=== PATIENT | male | born 1955 | race Two or more races ===

== ENCOUNTER 2020-09-17 08:35 | Inpatient (IN) | payer OTHER, SELFPAY ==
[~2020-09-17] VITALS: Ht 170.2 cm; Wt 47.6 kg
[~2020-09-17 08:35] MED LIST: ASPIRIN81 MG ORAL; BENAZEPRIL HCL40 MG ORAL; CEPHALEXIN500 M1 ORAL; FLOMAX0.4 MG ORAL; LABETALOL H5 MG/1 M1 PO; LIPITOR10 MG ORAL; NORCO 5-325 TA1 EACH ORAL; NORMODYNE200 MG ORAL; NORVASC5 MG ORAL; PHOSLO667 M1 PO
[2020-09-17] MEDS ORDERED: Acetaminophen 650mg/20.3ml GT STA (08:50)
[2020-09-17 09:00] VITALS: BP 126/45
[2020-09-17] MEDS ORDERED: Piperacillin/Tazobactam 3.375 GM in NS 110 ML IV ONE (09:00)
[2020-09-17] MEDS ORDERED: Vancomycin 1 GM in NS 275 ML IVPB ONE (09:00)
--- NOTE | 2020-09-17 09:00 | NUR ---
ED Nurse Note: Pt BIBA R68 from [facility] for ALOC. Pt is a&ox0, awake, eye open, unable to follow commands. Pt has G tube in upper abdomen, dialysis shunt in L arm. G tube patent and draining. Per Dr Centeno, straight cath used for urine specimen. IV established and blood sent to lab. Set up on monitor. Dr Centeno notified that rectal remp 103.1 F.
[2020-09-17] MEDS ORDERED: RENAGEL800 MG ORAL (09:01)
[2020-09-17] MEDS ORDERED: LACTULOSE20 GM/301 ORAL (09:01)
[2020-09-17] MEDS ORDERED: HUMALOG100 UNIT/4 SUBQ (09:01)
[2020-09-17] MEDS ORDERED: ATORVASTATIN CA80 MG ORAL (09:01)
[2020-09-17] MEDS ORDERED: NEXIUM40 M2 ORAL (09:01)
[2020-09-17] MEDS ORDERED: HYDRALAZINE HC100 MG ORAL (09:01)
[2020-09-17] MEDS ORDERED: XIFAXAN550 MG ORAL (09:01)
[2020-09-17] MEDS ORDERED: TRAMADOL HCL50 MG ORAL (09:01)
[2020-09-17] MEDS ORDERED: VENTOLIN HFA18 GM INH (09:01)
[2020-09-17] MEDS ORDERED: CARVEDILOL25 MG ORAL (09:01)
[2020-09-17] MEDS ORDERED: ACETAMINOPHEN325 M1 ORAL (09:01)
--- NOTE | 2020-09-17 09:11 | Emergency Room Report ---
History of Present Illness General Chief Complaint: Altered Level of Consciousness Source: Medical Record, EMS Present Illness HPI Patient brought in by ALS for altered level of consciousness. Patient is a dialysis patient. He is known to be Covid positive. Pulse oximetry in the [place] was 98%. Accu-Chek was 120. He said he felt hot but there done temperature was 99. The patient is usually more alert than he is now. He suffers from end-stage renal disease and is due for dialysis today. The patient is unable to give a history at this time as he is not answering questions and does respond to pain but minimally. The patient was admitted January 2014 with these discharge diagnoses: 1. Acute dyspnea due to pulmonary edema. 2. Acute fluid overload. 3. Accelerated hypertension, resolving. 4. End-stage renal disease, on hemodialysis on Sundays and Tuesdays followed by Dr. Castro. 5. Anemia with prior history of blood transfusion. 6. Diabetes mellitus type 2. 7. Elevated TSH with hypothyroidism. 8. Status post right chest wall PermCath placement approximately one month ago. 9. 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 COVID-19 Screening: Positive COVID-19 COVID-19 Testing Source: nasal Patient History Limited by: medical condition Past Medical History: see triage record, old chart reviewed Past Surgical History: other - Fistula left arm and G-tube Social History Narrative SNF Reviewed Nursing Documentation: PMH: Agreed; PSxH: Agreed Nursing Documentation-PMH Past Medical History: No History, Except For Hx Cardiac Problems: Yes Hx Hypertension: Yes Hx Diabetes: Yes Hx Cancer: No Hx Gastrointestinal Problems: No Hx Dialysis: Yes - Monday, Monday schedule Hx Neurological Problems: No Review of Systems All Other Systems: limited Physical Exam Vital Signs Date Time Temp Pulse Resp B/P (MAP) Pulse Ox O2 Delivery O2 Flow Rate FiO2 09/17/20 08:38 99.0 91 19 120/46 (70) 98 Room Air Patient feels hot and rectal temp is 103.1 Sp02 EP Interpretation: reviewed, normal General Appearance: lethargic, Chronically Ill Head: normocephalic Eyes: bilateral eye normal inspection ENT: dry mucus membranes Neck: supple Respiratory: lungs clear, normal breath sounds, no respiratory distress Cardiovascular #1: regular rate, rhythm, no edema, systolic murmur, other - Dialysis fistula left lower arm Cardiovascular #2: 2+ radial (R) Gastrointestinal: normal inspection, normal bowel sounds, non tender, no mass, non-distended, other - Gastrostomy tube Musculoskeletal: back normal, other - Contractures lower extremities Neurologic: other - Lethargic and minimally responsive to pain Psychiatric: other - Lethargy Skin: Decubitus/Ulcer - Bilateral heels resting on, warm/dry - Actually hot to touch, other - Sallow Medical Decision Making Diagnostic Impression: Primary Impression: Sepsis Qualified Codes: A41.9 - Sepsis, unspecified organism; R65.20 - Severe sepsis without septic shock; G93.40 - Encephalopathy, unspecified Additional Impressions: Altered level of consciousness ESRD (end stage renal disease) on dialysis History of 2019 novel coronavirus disease (COVID-19) NSTEMI (non-ST elevated myocardial infarction) Hypokalemia ER Course Patient presents with a level of consciousness and for fever with a history of COVID-19. Differential includes COVID-19, sepsis, pneumonia, urinary tract infection, other source of infection amongst others. Evaluation with sepsis work-up including chest x-ray and EKG. Patient placed on pvc monitor. Fluid bolus ordered. Antibiotics begun. Based on exam suspect urinary source as lungs are clear and oxygen saturation is normal. EKG NSSTTW changes, no STEMI. CXR clear. WBC elevated. K low (but ESRD). Troponin 2.1. Aspirin ordered. Second bolus ordered. Add Levaquin. BP stable, not tachycardic. Slightly more responsive. Sepsis re-evaluation [address] Willams in the emergency department. Patient Covid positive. Clinically improved but still quite ill. Admit to the hospital. Elected not to treat low potassium as history of end-stage renal disease on dialysis. Laboratory Tests Test 09/17/20 09:07 09/17/20 10:36 09/17/20 17:00 White Blood Count 19.0 K/UL (4.8-10.8) H Red Blood Count 3.35 M/UL (4.70-6.10) L Hemoglobin 10.0 G/DL (14.2-18.0) L Hematocrit 29.4 % (42.0-52.0) L Mean Corpuscular Volume 88 FL (80-99) Mean Corpuscular Hemoglobin 29.9 PG (27.0-31.0) Mean Corpuscular Hemoglobin Concent 34.0 G/DL (32.0-36.0) Red Cell Distribution Width 18.3 % (11.6-14.8) H Platelet Count 147 K/UL (150-450) L Mean Platelet Volume 10.3 FL (6.5-10.1) H Neutrophils (%) (Auto) % (45.0-75.0) Lymphocytes (%) (Auto) % (20.0-45.0) Monocytes (%) (Auto) % (1.0-10.0) Eosinophils (%) (Auto) % (0.0-3.0) Basophils (%) (Auto) % (0.0-2.0) Differential Total Cells Counted 100 Neutrophils % (Manual) 79 % (45-75) H Lymphocytes % (Manual) 12 % (20-45) L Monocytes % (Manual) 7 % (1-10) Eosinophils % (Manual) 0 % (0-3) Basophils % (Manual) 0 % (0-2) Band Neutrophils 2 % (0-8) Platelet Estimate Decreased L Platelet Morphology Normal Hypochromasia 1+ Anisocytosis 2+ Prothrombin Time 11.9 SEC (9.30-11.50) H Prothrombin Time INR 1.1 (0.9-1.1) Activated Partial Thromboplast Time 32 SEC (23-33) D-Dimer 7.12 mg/L FEU (0.00-0.49) H Urine Color Yellow Urine Appearance Clear Urine pH 8.0 (4.5-8.0) Urine Specific [place] 1.010 (1.005-1.035) Urine Protein 3+ (NEGATIVE) H Urine Glucose (UA) Negative (NEGATIVE) Urine Ketones Negative (NEGATIVE) Urine Blood 1+ (NEGATIVE) H Urine Nitrite Negative (NEGATIVE) Urine Bilirubin Negative (NEGATIVE) Urine Urobilinogen Normal MG/DL (0.0-1.0) Urine Leukocyte Esterase Negative (NEGATIVE) Urine RBC 5-10 /HPF (0 - 0) H Urine WBC 2-4 /HPF (0 - 0) Urine Squamous Epithelial Cells Occasional /LPF Urine Amorphous Sediment Few /LPF (NONE) H Urine Bacteria Few /HPF (NONE) Sodium Level 139 MMOL/L (136-145) Potassium Level 2.6 MMOL/L (3.5-5.1) *L Chloride Level 99 MMOL/L (98-107) Carbon Dioxide Level 27 MMOL/L (21-32) Anion Gap 14 mmol/L (5-15) Blood Urea Nitrogen 49 mg/dL (7-18) H Creatinine 7.1 MG/DL (0.55-1.30) H Estimated Glomerular Filtration Rate 7.8 mL/min (>60) Glucose Level 98 MG/DL (74-106) Lactic Acid Level 4.30 mmol/L (0.4-2.0) H 4.40 mmol/L (0.66-2.22) H Calcium Level 8.2 MG/DL (8.5-10.1) L Magnesium Level 2.0 MG/DL (1.8-2.4) Ferritin 1142 NG/ML (8-388) H Total Bilirubin 0.7 MG/DL (0.2-1.0) Aspartate Amino Transferase (AST) 33 U/L (15-37) Alanine Aminotransferase (ALT) 7 U/L (12-78) L Alkaline Phosphatase 178 U/L (46-116) H Lactate Dehydrogenase 227 U/L (81-234) Total Creatine Kinase 151 U/L (26-308) Troponin I 2.142 ng/mL (0.000-0.056) C-Reactive Protein, Quantitative 24.6 mg/dL (0.00-0.90) H Pro-B-Type Natriuretic Peptide Pending Total Protein 6.5 G/DL (6.4-8.2) Albumin 1.7 G/DL (3.4-5.0) L Globulin 4.8 g/dL Albumin/Globulin Ratio 0.4 (1.0-2.7) L Lipase 41 U/L (73-393) L Hemoglobin A1c 5.1 % (4.3-6.0) Microbiology Date/Time Source Procedure Growth Status 09/17/20 10:36 Nasopharynx SARS-CoV-2 RdRp Gene Assay - Final Complete EKG Diagnostic Results Rate: normal Rhythm: NSR ST Segments: no acute changes - Nonspecific ST-T wave changes with ST inversions laterally, right axis deviation Rhythm Strip Diag. Results EP Interpretation: yes Rhythm: NSR, no PVC's, no ectopy Chest X-Ray Diagnostic Results Chest X-Ray Diagnostic Results : Chest X-Ray Ordered: Yes # of Views/Limited/Complete: 1 View Indication: Other EP Interpretation: Yes Interpretation: no consolidation, no effusion, no pneumothorax Impression: No acute disease Electronically Signed by: Electronically signed by Gerhard Centeno MD Last Vital Signs Date Time Temp Pulse Resp B/P (MAP) Pulse Ox O2 Delivery O2 Flow Rate FiO2 09/17/20 16:00 61 09/17/20 16:00 96.3 20 100/43 (62) 96 09/17/20 13:25 Room Air 09/17/20 09:00 98 Status: improved Disposition: ADMITTED INPATIENT Condition: Serious Gerhard Centeno MD Sep 17, 2020 09:11
[2020-09-17 09:29] LABS: HEMATOCRIT 29.4 % (42.0-52.0); MEAN CORPUSCULAR VOLUME 88 FL (80-99); PLATELET COUNT 147 K/UL (150-450); RED BLOOD COUNT 3.35 M/UL (4.70-6.10); RED CELL DISTRIBUTION WIDTH 18.3 % (11.6-14.8)
--- NOTE | 2020-09-17 09:30 | NUR ---
ED Nurse Note: ERMD aware of low potassium level.
[2020-09-17 09:43] LABS: INR 1.1 (0.9-1.1)
--- NOTE | 2020-09-17 09:45 | Diagnostic Imaging Report ---
Indication: Cough Technique: One view of the chest Comparison: 02/22/2014 Findings: Previously demonstrated dialysis catheter is no longer evident. Lungs and pleural space are clear. The heart size is normal. There is a gastrostomy. Impression: No acute process
[2020-09-17 09:53] LABS: ALANINE AMINOTRANSFERASE 7 U/L (12-78); ALBUMIN 1.7 G/DL (3.4-5.0); ALBUMIN/GLOBULIN RATIO 0.4 (1.0-2.7); ALKALINE PHOSPHATASE 178 U/L (46-116); ANION GAP 14 mmol/L (5-15); ASPARTATE AMINO TRANSFERASE 33 U/L (15-37); BILIRUBIN,TOTAL 0.7 MG/DL (0.2-1.0); BLOOD UREA NITROGEN 49 mg/dL (7-18); CALCIUM 8.2 MG/DL (8.5-10.1); CARBON DIOXIDE 27 MMOL/L (21-32); CHLORIDE 99 MMOL/L (98-107); CREATINE KINASE 151 U/L (26-308); CREATININE 7.1 MG/DL (0.55-1.30); FERRITIN 1142 NG/ML (8-388); LACTATE DEHYDROGENASE 227 U/L (81-234); SODIUM 139 MMOL/L (136-145)
[2020-09-17 10:07] LABS: POTASSIUM 2.6 MMOL/L (3.5-5.1)
[2020-09-17 10:31] LABS: APPEARANCE,URINE CLEAR; COLOR,URINE YELLOW
[2020-09-17 10:32] LABS: BILIRUBIN, URINE NEGATIVE (NEGATIVE); GLUCOSE, URINE (UA) NEGATIVE (NEGATIVE); KETONES,URINE NEGATIVE (NEGATIVE); LEUKOCYTE ESTERASE ,URINE NEGATIVE (NEGATIVE); NITRITE,URINE NEGATIVE (NEGATIVE); PROTEIN,URINE 3+ (NEGATIVE); UROBILINOGEN,URINE NORMAL MG/DL (0.0-1.0)
--- NOTE | 2020-09-17 10:40 | NUR ---
ED Nurse Note: Lactic reflux sent.
--- NOTE | 2020-09-17 10:40 | NUR ---
ED Nurse Note: COVID swab sent.
[2020-09-17 11:20] VITALS: BP 123/46
[2020-09-17] MEDS ORDERED: HYDROcodone/Acetamin 5/325 tab ORAL PRN (12:30)
[2020-09-17] MEDS ORDERED: traMADol 50mg tab ORAL PRN (12:30)
--- NOTE | 2020-09-17 12:33 | NUR ---
ED Nurse Note: Report given to Lisa MERRILL.
--- NOTE | 2020-09-17 12:45 | NUR ---
ED Nurse Note: Pt transferred with all belongings. Pt has no acute distress. Received by RN.
[2020-09-17 13:00] VITALS: BP 100/45
[2020-09-17] MEDS ORDERED: traMADol 50mg tab GT PRN (13:00)
[2020-09-17] MEDS ORDERED: Acetaminophen 650mg/20.3ml GT PRN (13:00)
--- NOTE | 2020-09-17 13:00 | NUR ---
NURSE NOTES: Patient transferred from ER via gurney to room 220-2 without incident. Awake but lethargic. AAO x 1-2. Patient has diarrhea, cleaned and Changed to hospital gown, placed nut grinder, reading sinus rhythm. VS taken. Multiple wound noted, picture taken and will upload. G-tub noted, aspirated and flushed, Site is intact. IV on right FA, Patent and intact. AV shunt on left FA bruit and thrilled present. Bed in low position and locked, Call light within reach. Encouraged to use call light when needed. Will contact MD for admission order.
--- NOTE | 2020-09-17 13:04 | History and Physical ---
History of Present Illness General Date patient seen: Sep 17, 2020 Time patient seen: 12:00 Reason for Hospitalization: Altered Level of Consciousness Present Illness HPI Patient is a 65 y/o M who was sent to the ER in by ALS for altered level of consciousness from [facility] where he was being supported for recent Covid 19 + diagnosis. The patient is a dialysis patient - ESRD with HD T//Mon and had last session 09/15. Pulse oximetry in the field was 98%. Accu-Chek was 120. He said he felt hot but there done temperature was 99. The patient is usually more alert than he was initially in the ER. He is due for dialysis today. The patient is unable to give a history at this time as he is not answering questions and does respond to pain but minimally. In the ER he was given IVF bolus and lab work showed hypokalemia 2.8 and leukocytosis 19 K with evidence of UTI. Broad sp antibiotic, [id number] started in the ER Covid test was positive ( initial dx was in early September ). Admission is reque sted. Allergies: Coded Allergies: No Known Allergies (Unverified , 02/21/14) COVID-19 Screening Contact w/high risk pt: Yes Experienced COVID-19 symptoms?: Yes Coronavirus symptoms experienc: Fatigue Medication History Scheduled Albuterol Sulfate (Ventolin Hfa), 1 PUFF INH EVERY 6 HOURS, (Reported) Amlodipine Besylate (Norvasc), 5 MG ORAL DAILY Aspirin* (Aspirin*), 81 MG ORAL DAILY, (Reported) Atorvastatin Calcium* (Lipitor*), 10 MG ORAL DAILY, (Reported) Atorvastatin Calcium* (Lipitor*), 80 MG ORAL BEDTIME, (Reported) Benazepril Hcl* (Benazepril Hcl*), 40 MG ORAL DAILY, (Reported) Calcium Acetate (Phoslo), 667 MG PO TID, (Reported) Carvedilol* (Carvedilol*), 25 MG ORAL EVERY 12 HOURS, (Reported) Esomeprazole Magnesium (Nexium), 40 MG ORAL DAILY, (Reported) Hydralazine Hcl* (Hydralazine Hcl*), 100 MG ORAL EVERY 8 HOURS, (Reported) Labetalol HCl (Labetalol HCl), 400 MG ORAL Q8HR Rifaximin* (Xifaxan*), 550 MG ORAL TWICE A DAY, (Reported) Sevelamer Hcl (Renagel), 2,400 MG ORAL THREE TIMES A DAY, (Reported) Tamsulosin HCl (Flomax), 0.4 MG ORAL DAILY, (Reported) Scheduled PRN Acetaminophen* (Acetaminophen 325MG Tablet*), 650 MG ORAL Q4H PRN for For Pain, (Reported) Hydrocodone Bit/Acetaminophen 5-325* ([place] 5-325*), 1 TAB ORAL Q6H PRN for For Pain, (Reported) Tramadol Hcl* (Ultram*), 50 MG ORAL Q6H PRN for For Pain, (Reported) Miscellaneous Medications Insulin Lispro (Humalog), 0 SUBQ, (Reported) Lactulose (Lactulose*), 30 ML ORAL, (Reported) Patient History Healthcare decision maker Resuscitation status Advanced Directive on File Review of Systems All Other Systems: negative except mentioned in HPI Physical Exam General Appearance: moderate distress Lines, tubes and drains: peripheral HEENT: normocephalic, atraumatic Neck: non-tender Respiratory/Chest: lungs clear Cardiovascular/Chest: normal rate Abdomen: non tender, feeding tube Skin Exam: normal pigmentation, other - Left heel, foot dressing in place Last 24 Hour Vital Signs Date Time Temp Pulse Resp B/P (MAP) Pulse Ox O2 Delivery O2 Flow Rate FiO2 09/17/20 11:20 101.5 80 20 123/46 97 Room Air 09/17/20 09:32 101.5 09/17/20 09:00 86 22 Room Air 98 09/17/20 09:00 99.0 86 22 126/45 98 Room Air 09/17/20 08:38 99.0 91 19 120/46 (70) 98 Room Air Laboratory Tests Test 09/17/20 09:07 09/17/20 10:36 White Blood Count 19.0 K/UL (4.8-10.8) H Red Blood Count 3.35 M/UL (4.70-6.10) L Hemoglobin 10.0 G/DL (14.2-18.0) L Hematocrit 29.4 % (42.0-52.0) L Mean Corpuscular Volume 88 FL (80-99) Mean Corpuscular Hemoglobin 29.9 PG (27.0-31.0) Mean Corpuscular Hemoglobin Concent 34.0 G/DL (32.0-36.0) Red Cell Distribution Width 18.3 % (11.6-14.8) H Platelet Count 147 K/UL (150-450) L Mean Platelet Volume 10.3 FL (6.5-10.1) H Neutrophils (%) (Auto) % (45.0-75.0) Lymphocytes (%) (Auto) % (20.0-45.0) Monocytes (%) (Auto) % (1.0-10.0) Eosinophils (%) (Auto) % (0.0-3.0) Basophils (%) (Auto) % (0.0-2.0) Differential Total Cells Counted 100 Neutrophils % (Manual) 79 % (45-75) H Lymphocytes % (Manual) 12 % (20-45) L Monocytes % (Manual) 7 % (1-10) Eosinophils % (Manual) 0 % (0-3) Basophils % (Manual) 0 % (0-2) Band Neutrophils 2 % (0-8) Platelet Estimate Decreased L Platelet Morphology Normal Hypochromasia 1+ Anisocytosis 2+ Prothrombin Time 11.9 SEC (9.30-11.50) H Prothromb Time International Ratio 1.1 (0.9-1.1) Activated Partial Thromboplast Time 32 SEC (23-33) D-Dimer 7.12 mg/L FEU (0.00-0.49) H Urine Color Yellow Urine Appearance Clear Urine pH 8.0 (4.5-8.0) Urine Specific [place] 1.010 (1.005-1.035) Urine Protein 3+ (NEGATIVE) H Urine Glucose (UA) Negative (NEGATIVE) Urine Ketones Negative (NEGATIVE) Urine Blood 1+ (NEGATIVE) H Urine Nitrite Negative (NEGATIVE) Urine Bilirubin Negative (NEGATIVE) Urine Urobilinogen Normal MG/DL (0.0-1.0) Urine Leukocyte Esterase Negative (NEGATIVE) Urine RBC 5-10 /HPF (0 - 0) H Urine WBC 2-4 /HPF (0 - 0) Urine Squamous Epithelial Cells Occasional /LPF Urine Amorphous Sediment Few /LPF (NONE) H Urine Bacteria Few /HPF (NONE) Sodium Level 139 MMOL/L (136-145) Potassium Level 2.6 MMOL/L (3.5-5.1) *L Chloride Level 99 MMOL/L (98-107) Carbon Dioxide Level 27 MMOL/L (21-32) Anion Gap 14 mmol/L (5-15) Blood Urea Nitrogen 49 mg/dL (7-18) H Creatinine 7.1 MG/DL (0.55-1.30) H Estimat Glomerular Filtration Rate 7.8 mL/min (>60) Glucose Level 98 MG/DL (74-106) Lactic Acid Level 4.30 mmol/L (0.4-2.0) H 4.40 mmol/L (0.66-2.22) H Calcium Level 8.2 MG/DL (8.5-10.1) L Magnesium Level 2.0 MG/DL (1.8-2.4) Ferritin 1142 NG/ML (8-388) H Total Bilirubin 0.7 MG/DL (0.2-1.0) Aspartate Amino Transf (AST/SGOT) 33 U/L (15-37) Alanine Aminotransferase (ALT/SGPT) 7 U/L (12-78) L Alkaline Phosphatase 178 U/L (46-116) H Lactate Dehydrogenase 227 U/L (81-234) Total Creatine Kinase 151 U/L (26-308) Troponin I 2.142 ng/mL (0.000-0.056) C-Reactive Protein, Quantitative 24.6 mg/dL (0.00-0.90) H Pro-B-Type Natriuretic Peptide Pending Total Protein 6.5 G/DL (6.4-8.2) Albumin 1.7 G/DL (3.4-5.0) L Globulin 4.8 g/dL Albumin/Globulin Ratio 0.4 (1.0-2.7) L Lipase 41 U/L (73-393) L Microbiology Date/Time Source Procedure Growth Status 09/17/20 10:36 Nasopharynx SARS-CoV-2 RdRp Gene Assay - Final Complete Height (Feet): 5 Height (Inches): 7.00 Weight (Pounds): 170 Objective Narrative CXR negative for infiltrate or effusion EKG NSR Assessment/Plan Status: stable Assessment/Plan: 65 y/o M with ESRD, Cirrhosis, Covid 19 positive admitted to the hospital due to altered mental status. # Altered mental status # Sepsis # UTI Broad sp antibiotic started. Continue Levofloxacin, Vancomycin, Pip/Tazo at renal doses ID consult will be requested with Dr. Roblero Monitor hemodynamics and HL IVF for now. # ESRD on HD # Hypokalemia Renal consultation with Dr. Kline Defer schedule for HD and replacement of electrolytes # Covid 19 positive CXR without infiltrate today. Initial diagnosis in > 15 days ago. Isolation per protocol Defer to ID hadoop consultant further interventions. # History of cirrhosis Resume Rifaxim, lactulose # History of diabetic foot ulcer Wound care consult with Dr. Epps # T2DM REG Monitor BG # Diet At SNF on Puree diet #DVT with heparin bid sq # Gi ppx with PPI # FULL CODE Shiva Willams MD Sep 17, 2020 13:04
[2020-09-17] MEDS: HydrALAZINE 50mg tab GT SCH ×2 (14:00→21:55)
[2020-09-17] MEDS: Renvela 2400 mg pkt GT SCH ×2 (14:07→17:46)
[2020-09-17] MEDS: Piperacillin/Tazobactam 2.25 GM in D5W 55 ML IV SCH ×2 (14:16→22:15)
--- NOTE | 2020-09-17 14:18 | Consultation ---
Consult Note Consult Note I am asked to evaluate the patient at the request of Dr. Willams for dialysis management Chief Complaint: Altered Level of Consciousness Patient brought in by ALS for altered level of consciousness. Patient is a dialysis patient. He is known to be Covid positive. Pulse oximetry in the [facility] ld was 98%. Accu-Chek was 120. He said he felt hot but there done temperature was 99. The patient is usually more alert than he is now. He suffers from end- stage renal disease and is due for dialysis today. The patient is unable to give a history at this time as he is not answering questions and does respond to pain but minimally. 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 COVID-19 Screening: Positive COVID-19 COVID-19 Testing Source: nasal Limited by: medical condition Past Medical History: see triage record, old chart reviewed Past Surgical History: other - Fistula left arm and G-tube Social History Narrative SNF Reviewed Nursing Documentation: PMH: Agreed; PSxH: Agreed Past Medical History: No History, Except For Hx Cardiac Problems: Yes Hx Hypertension: Yes Hx Diabetes: Yes Hx Dialysis: Yes - Monday, Monday schedule Vital Signs Date Time Temp Pulse Resp B/P (MAP) Pulse Ox O2 Delivery O2 Flow Rate FiO2 09/17/20 08:38 99.0 91 19 120/46 (70) 98 Room Air Patient feels hot and rectal temp is 103.1 VITAL SIGNS: Temperature 97.9, T-max of 101.5, pulse of 72, respiratory rate rate 20, blood pressure 120/65. O2 saturation of 97% on room air. Examination deferred due to COVID-19. LABORATORY DATA: White count 18.6, hemoglobin 10.6, hematocrit 31.7, MCV 90, platelet count of 124,000, neutrophils of 87%. Sodium 136, potassium 3.1, chloride 99, bicarb 23, BUN 57, creatinine 7.1, glucose 155. Calcium 8.6. Total bilirubin 0.7, AST 43, ALT 9, alkaline phosphatase 149. Ammonia 23. C-reactive protein 28.8. Total protein 5.9, albumin 1.4. COVID-19 test is positive. Blood cultures growing gram-positive cocci in clusters. Urine cultures are negative. 2D echo which showed trace aortic regurgitation, mild mitral regurgitation, and trace tricuspid regurgitation on 09/17/2020. . Assessment/Plan End-stage renal disease on dialysis via left AV shunt Hypokalemia Cirrhosis Acute encephalopathy toxic metabolic COVID-19 infection/sepsis History of diabetes and diabetic foot ulcer GT feeding Full code Elevated troponin I Adjust blood pressure medications with proper parameters 2D echocardiogram Continue per ID Hemodialysis as needed Monitor electrolytes Gerardo Truong MD Sep 17, 2020 14:18
--- NOTE | 2020-09-17 14:41 | Consultation ---
History of Present Illness General Date patient seen: Sep 17, 2020 Reason for Hospitalization: Altered Level of Consciousness Present Illness HPI This is a 65 year old male presented to [facility] for altered level of consciousness noted to have fevers, leukocytosis, lactic acidosis, septic with recent COVID + noted prior cirrhosis. surgery called to evaluate and assist with care. patient seen, chart reviewed, patient examined. noted to have abnormal labs, ill appearing, with decubitus changes. patient unable to provide history or participate in exam. Allergies: Coded Allergies: No Known Allergies (Unverified , 02/21/14) COVID-19 Screening Contact w/high risk pt: Yes Experienced COVID-19 symptoms?: Yes Coronavirus symptoms experienc: Fatigue Medication History Scheduled Albuterol Sulfate (Ventolin Hfa), 1 PUFF INH EVERY 6 HOURS, (Reported) Amlodipine Besylate (Norvasc), 5 MG ORAL DAILY Aspirin* (Aspirin*), 81 MG ORAL DAILY, (Reported) Atorvastatin Calcium* (Lipitor*), 10 MG ORAL DAILY, (Reported) Atorvastatin Calcium* (Lipitor*), 80 MG ORAL BEDTIME, (Reported) Benazepril Hcl* (Benazepril Hcl*), 40 MG ORAL DAILY, (Reported) Calcium Acetate (Phoslo), 667 MG PO TID, (Reported) Carvedilol* (Carvedilol*), 25 MG ORAL EVERY 12 HOURS, (Reported) Esomeprazole Magnesium (Nexium), 40 MG ORAL DAILY, (Reported) Hydralazine Hcl* (Hydralazine Hcl*), 100 MG ORAL EVERY 8 HOURS, (Reported) Labetalol HCl (Labetalol HCl), 400 MG ORAL Q8HR Rifaximin* (Xifaxan*), 550 MG ORAL TWICE A DAY, (Reported) Sevelamer Hcl (Renagel), 2,400 MG ORAL THREE TIMES A DAY, (Reported) Tamsulosin HCl (Flomax), 0.4 MG ORAL DAILY, (Reported) Scheduled PRN Acetaminophen* (Acetaminophen 325MG Tablet*), 650 MG ORAL Q4H PRN for For Pain, (Reported) Hydrocodone Bit/Acetaminophen 5-325* ([place] 5-325*), 1 TAB ORAL Q6H PRN for For Pain, (Reported) Tramadol Hcl* (Ultram*), 50 MG ORAL Q6H PRN for For Pain, (Reported) Miscellaneous Medications Insulin Lispro (Humalog), 0 SUBQ, (Reported) Lactulose (Lactulose*), 30 ML ORAL, (Reported) Patient History Limited by: medical condition History Provided By: Medical Record, PMD Healthcare decision maker Resuscitation status Advanced Directive on File Past Medical/Surgical History Past Medical/Surgical History: (1) Pulmonary edema (2) Renal failure (3) Pulmonary edema (4) Pulmonary edema (5) HTN (hypertension) (6) Sepsis (7) Altered level of consciousness (8) NSTEMI (non-ST elevated myocardial infarction) (9) ESRD (end stage renal disease) on dialysis (10) History of 2019 novel coronavirus disease (COVID-19) Review of Systems Review of Symptoms General ROS: no weight loss or fever Psychological ROS: no depression or mood changes, no memory loss Ophthalmic ROS: no visual changes or eye irritation ENT ROS: no nasal congestion, hearing loss, dizziness Allergy and Immunology ROS: no allergic symptoms or urticaria Hematological and Lymphatic ROS: no swollen glands, unusual bleeding or bruising Endocrine ROS: no polyuria, polydipsia, weight changes, temperature intolerance Respiratory ROS: no cough, shortness of breath, or wheezing Cardiovascular ROS: no chest pain or dyspnea on exertion Gastrointestinal ROS: denies abdominal pain, bright red blood in stool. Musculoskeletal ROS: no myalgias or arthralgias Neurological ROS: no TIA or stroke symptoms Dermatological ROS: no new or changing skin lesions, rashes or pruritis limited given medical condition Physical Exam Physical Exam General appearance: no distress, appears stated age Head: Normocephalic, without obvious abnormality, atraumatic Eyes: conjunctivae/corneas clear. PERRL, EOM's intact. Fundi benign Throat: Lips, mucosa, and tongue normal. Teeth and gums normal Neck: supple, symmetrical, trachea midline, no adenopathy, thyroid: not enlarged, symmetric, no tenderness/mass/nodules, no carotid bruit and no JVD Lungs: clear to auscultation bilaterally Heart: regular rate and rhythm, S1, S2 normal, no murmur, click, rub or gallop Abdomen: soft, non-tender. Bowel sounds normal. No masses, no organomegaly Extremities: extremities normal, atraumatic, no cyanosis or edema Pulses: 2+ and symmetric Skin: Skin see below Neurologic: Grossly normal Last 24 Hour Vital Signs Date Time Temp Pulse Resp B/P (MAP) Pulse Ox O2 Delivery O2 Flow Rate FiO2 09/17/20 14:00 100/45 09/17/20 11:20 101.5 80 20 123/46 97 Room Air 09/17/20 09:32 101.5 09/17/20 09:00 86 22 Room Air 98 09/17/20 09:00 99.0 86 22 126/45 98 Room Air 09/17/20 08:38 99.0 91 19 120/46 (70) 98 Room Air Laboratory Tests Test 09/17/20 09:07 09/17/20 10:36 White Blood Count 19.0 K/UL (4.8-10.8) H Red Blood Count 3.35 M/UL (4.70-6.10) L Hemoglobin 10.0 G/DL (14.2-18.0) L Hematocrit 29.4 % (42.0-52.0) L Mean Corpuscular Volume 88 FL (80-99) Mean Corpuscular Hemoglobin 29.9 PG (27.0-31.0) Mean Corpuscular Hemoglobin Concent 34.0 G/DL (32.0-36.0) Red Cell Distribution Width 18.3 % (11.6-14.8) H Platelet Count 147 K/UL (150-450) L Mean Platelet Volume 10.3 FL (6.5-10.1) H Neutrophils (%) (Auto) % (45.0-75.0) Lymphocytes (%) (Auto) % (20.0-45.0) Monocytes (%) (Auto) % (1.0-10.0) Eosinophils (%) (Auto) % (0.0-3.0) Basophils (%) (Auto) % (0.0-2.0) Differential Total Cells Counted 100 Neutrophils % (Manual) 79 % (45-75) H Lymphocytes % (Manual) 12 % (20-45) L Monocytes % (Manual) 7 % (1-10) Eosinophils % (Manual) 0 % (0-3) Basophils % (Manual) 0 % (0-2) Band Neutrophils 2 % (0-8) Platelet Estimate Decreased L Platelet Morphology Normal Hypochromasia 1+ Anisocytosis 2+ Prothrombin Time 11.9 SEC (9.30-11.50) H Prothromb Time International Ratio 1.1 (0.9-1.1) Activated Partial Thromboplast Time 32 SEC (23-33) D-Dimer 7.12 mg/L FEU (0.00-0.49) H Urine Color Yellow Urine Appearance Clear Urine pH 8.0 (4.5-8.0) Urine Specific [place] 1.010 (1.005-1.035) Urine Protein 3+ (NEGATIVE) H Urine Glucose (UA) Negative (NEGATIVE) Urine Ketones Negative (NEGATIVE) Urine Blood 1+ (NEGATIVE) H Urine Nitrite Negative (NEGATIVE) Urine Bilirubin Negative (NEGATIVE) Urine Urobilinogen Normal MG/DL (0.0-1.0) Urine Leukocyte Esterase Negative (NEGATIVE) Urine RBC 5-10 /HPF (0 - 0) H Urine WBC 2-4 /HPF (0 - 0) Urine Squamous Epithelial Cells Occasional /LPF Urine Amorphous Sediment Few /LPF (NONE) H Urine Bacteria Few /HPF (NONE) Sodium Level 139 MMOL/L (136-145) Potassium Level 2.6 MMOL/L (3.5-5.1) *L Chloride Level 99 MMOL/L (98-107) Carbon Dioxide Level 27 MMOL/L (21-32) Anion Gap 14 mmol/L (5-15) Blood Urea Nitrogen 49 mg/dL (7-18) H Creatinine 7.1 MG/DL (0.55-1.30) H Estimat Glomerular Filtration Rate 7.8 mL/min (>60) Glucose Level 98 MG/DL (74-106) Hemoglobin A1c Pending Lactic Acid Level 4.30 mmol/L (0.4-2.0) H 4.40 mmol/L (0.66-2.22) H Calcium Level 8.2 MG/DL (8.5-10.1) L Magnesium Level 2.0 MG/DL (1.8-2.4) Ferritin 1142 NG/ML (8-388) H Total Bilirubin 0.7 MG/DL (0.2-1.0) Aspartate Amino Transf (AST/SGOT) 33 U/L (15-37) Alanine Aminotransferase (ALT/SGPT) 7 U/L (12-78) L Alkaline Phosphatase 178 U/L (46-116) H Lactate Dehydrogenase 227 U/L (81-234) Total Creatine Kinase 151 U/L (26-308) Troponin I 2.142 ng/mL (0.000-0.056) C-Reactive Protein, Quantitative 24.6 mg/dL (0.00-0.90) H Pro-B-Type Natriuretic Peptide Pending Total Protein 6.5 G/DL (6.4-8.2) Albumin 1.7 G/DL (3.4-5.0) L Globulin 4.8 g/dL Albumin/Globulin Ratio 0.4 (1.0-2.7) L Lipase 41 U/L (73-393) L Microbiology Date/Time Source Procedure Growth Status 09/17/20 10:36 Nasopharynx SARS-CoV-2 RdRp Gene Assay - Final Complete 09/17/20 09:07 Rectum Received Height (Feet): 5 Height (Inches): 7.00 Weight (Pounds): 170 Medications Current Medications Medications (Trade) Dose Ordered Sig/Jannette Route PRN Reason Start Time Stop Time Status Last Admin Dose Admin Acetaminophen (Tylenol) 650 mg Q4H PRN GT Mild Pain (Pain Scale 1-3) 09/17/20 13:00 10/17/20 12:59 Acetaminophen/ Hydrocodone Bitart ([place] 5/325) 1 tab Q6H PRN ORAL Moderate Pain (Pain Scale 4-6) 09/17/20 12:30 09/24/20 12:29 Amlodipine Besylate (Norvasc) 5 mg DAILY GT 09/18/20 09:00 10/18/20 08:59 Aspirin (ASA) 81 mg DAILY GT 09/18/20 09:00 11/02/20 08:59 Atorvastatin Calcium (Lipitor) 10 mg DAILY GT 09/18/20 09:00 12/17/20 08:59 UNV Atorvastatin Calcium (Lipitor) 80 mg BEDTIME GT 09/17/20 21:00 12/16/20 20:59 UNV Calcium Acetate (Phoslo) 667 mg TID GT 09/17/20 13:00 12/16/20 12:59 09/17/20 14:07 Carvedilol (Coreg) 25 mg EVERY 12 HOURS GT 09/17/20 21:00 10/17/20 20:59 Dextrose (Dextrose 50%) 25 ml Q30M PRN IV Hypoglycemia 09/17/20 12:30 12/16/20 12:29 Dextrose (Dextrose 50%) 50 ml Q30M PRN IV Hypoglycemia 09/17/20 12:30 12/16/20 12:29 Heparin Sodium (Porcine) (Heparin 5000 units/ml) 5,000 units EVERY 12 HOURS SUBQ 09/17/20 21:00 11/01/20 20:59 Hydralazine HCl (Apresoline) 50 mg EVERY 8 HOURS GT 09/17/20 14:00 12/16/20 13:59 Hydromorphone HCl (Dilaudid) 2 mg Q4H PRN IVP Severe Pain (Pain Scale 7-10) 09/17/20 12:30 09/24/20 12:29 Insulin Aspart (NovoLOG) BEFORE MEALS AND HS SUBQ 09/17/20 16:30 12/16/20 16:29 Lactulose (Cephulac) 20 gm BID GT 09/17/20 18:00 10/17/20 17:59 Levofloxacin 50 ml @ 50 mls/hr Q48H IVPB 09/19/20 09:00 09/26/20 08:59 Ondansetron HCl (Zofran) 4 mg Q6H PRN IVP Nausea & Vomiting 09/17/20 12:30 10/17/20 12:29 Piperacillin Sod/ Tazobactam Sod 2.25 gm/Dextrose 55 ml @ 110 mls/hr Q8HR IV 09/17/20 14:00 09/22/20 13:59 09/17/20 14:16 Rifaximin (Xifaxan) 550 mg TWICE A DAY GT 09/17/20 18:00 09/24/20 17:59 Sevelamer Carbonate (Renvela) 2,400 mg THREE TIMES A DAY GT 09/17/20 13:00 12/16/20 12:59 09/17/20 14:07 Tamsulosin HCl (Flomax) 0.4 mg DAILY ORAL 09/18/20 09:00 10/18/20 08:59 Tramadol HCl (Ultram) 50 mg Q6H PRN GT Breakthrough Pain 09/17/20 13:00 09/24/20 12:29 Vancomycin HCl (Vanco pharmacy to dose) 1 ea DAILY PRN MISC Per rx protocol 09/17/20 12:30 10/17/20 12:29 Vancomycin HCl 500 mg/Dextrose 110 ml @ 110 mls/hr ONCE ONCE IVPB 09/17/20 15:00 09/17/20 15:59 Assessment/Plan Problem List: (1) Sepsis Assessment & Plan: Patient mated with leukocytosis, lactic acidosis, abnormal labs. Septic. Fevers T-max 101.5 now resolved. On IV antibiotics. Urine noted. Micro reviewed. Wounds reviewed. No abscess identified. Local care provided. Continue IV antibiotics. Nutritional supplementation. Okay to use feeding tube. Will follow with recommendations. Thank you letting participate patient's care DAILY ESTIMATED NEEDS: Needs based on ESRD on HD, underweight 47.6kg 30-40 kcals/kg 7502-8398 total kcals 1.25-1.8 g protein/kg 60-86 g total protein Fluid per MD, on HD NUTRITION DIAGNOSIS: Increased kcal and pro needs r/t underweight status and renal dysfunction as evidenced by Low BMI (16.5), pt is 71% of ideal bosy weight, w/ ESRD on HD. CURRENT DIET:Renal puree PO DIET RECOMMENDATIONS: Renal/ puree ADDITIONAL RECOMMENDATIONS: 1) Add NEPRO TID w/ meals + 1:1 feeds as able Consider temporary feeds via GT w/ poor po ICD Codes: A41.9 - Sepsis, unspecified organism SNOMED: 71460445, 282349485 Qualifiers: Qualified Codes: A41.9 - Sepsis, unspecified organism; R65.20 - Severe sepsis without septic shock; G93.40 - Encephalopathy, unspecified (2) Altered level of consciousness ICD Codes: R40.4 - Transient alteration of awareness SNOMED: 5065190, 577615519 (3) NSTEMI (non-ST elevated myocardial infarction) ICD Codes: I21.4 - Non-ST elevation (NSTEMI) myocardial infarction SNOMED: 90945060 (4) ESRD (end stage renal disease) on dialysis ICD Codes: N18.6 - ESRD (end stage renal disease) on dialysis; Z99.2 - Dependence on renal dialysis SNOMED: 112116145 (5) History of 2019 novel coronavirus disease (COVID-19) ICD Codes: Z86.19 - Personal history of other infectious and parasitic diseases SNOMED: 043519225566138542, 658937847 (6) Pulmonary edema ICD Codes: J81.1 - Chronic pulmonary edema SNOMED: 82147252 (7) Pulmonary edema ICD Codes: J81.1 - Chronic pulmonary edema SNOMED: 46592983 (8) Pulmonary edema ICD Codes: J81.1 - Chronic pulmonary edema SNOMED: 17237826 (9) Renal failure ICD Codes: N19 - Unspecified kidney failure SNOMED: 98696861 (10) HTN (hypertension) ICD Codes: I10 - HTN (hypertension) SNOMED: 04859737 (11) Foot ulcer Assessment & Plan: Patient present on admission with a 2 cm centimeter left lateral aspect fifth metatarsal ray area open wound potentially decubitus ulcer identified with 100% slough serosanguineous drainage raised edges minimal cellulitis no purulent drainage. Wound evaluated bedside cleanse with normal saline apply Thera honey gauze and Optifoam change daily and as needed saturation patient was identified to have a sacral right buttock DTI with area of purple induration no fluctuance no abscess no breakdown epidermal. Apply Optifoam dressing change every 3 days and as needed saturation patient identified to have vascular disease distal ischemia beginning to be identified. Duplex ordered. Turn every 2 hours nutritional optimization air soft mattress as necessary. We will follow with recommendations and kindly participate patient's care ICD Codes: L97.509 - Non-pressure chronic ulcer of other part of unspecified foot with unspecified severity SNOMED: 41706439 (12) Decubitus ulcer ICD Codes: L89.90 - Pressure ulcer of unspecified site, unspecified stage SNOMED: 892288135 Alexis Epps Sep 17, 2020 14:41
[2020-09-17] MEDS ORDERED: Vancomycin 500mg/D5W 110ml IVPB ONE ×2 (15:00)
[2020-09-17 16:00] VITALS: BP 100/43
[2020-09-17] MEDS: NovoLOG Insulin Flexpen SUBQ SCH ×2 (16:30→22:06)
[2020-09-17] MEDS ORDERED: HYDROcodone/Acetamin 5/325 tab GT PRN (17:00)
--- NOTE | 2020-09-17 17:30 | NUR ---
NURSE NOTES: Spoke with dialysis nurse Curtis, She said she will be here all night, but she won't be able to dialyze patient today. called [facility] and spoke with Calvin
[2020-09-17] MEDS: Lactulose 20gm/30ml UDC GT SCH (17:47)
--- NOTE | 2020-09-17 19:15 | NUR ---
NURSE HAND-OFF REPORT: Important Events on Shift:New admission Patient Status: Stable Diet: Renal puree moist Pending Orders: HD Pending Results/Labs:Morning labs Pending MD notification:N/A Latest Vital Signs: Temperature 96.3 , Pulse 61 , B/P 100 /43 , Respiratory Rate 20 , O2 SAT 96 , Mechanical Ventilator, O2 Flow Rate . Vital Sign Comment: Stable EKG Rhythm: Sinus Rhythm Rhythm change?: N MD Notified?: - MD Response: Latest Branch Fall Score: 50 Fall Risk: High Risk Safety Measures: Call light Within Reach, Bed Alarm Zone 1, Side Rails Side Rails x3, Bed position Low and Locked. Fall Precautions: Yellow Socks Yellow Gown Door Sign Patient Fall Education Report given to Dilip/DESIRAE.
[2020-09-17 20:00] VITALS: BP 105/63
[2020-09-17] MEDS ORDERED: Varibar Pudding 230ml MC PRN (20:00)
[2020-09-17] MEDS ORDERED: Varibar Honey 250ml MC PRN (20:00)
[2020-09-17] MEDS ORDERED: Varibar Nectar 240ml MC PRN (20:00)
[2020-09-17] MEDS ORDERED: Varibar Thin Liquid powder 148gm MC PRN (20:00)
--- NOTE | 2020-09-17 20:10 | NUR ---
NURSE NOTES: Patient received from Adriana RN. Patient alert and oriented x 0-1. Patient saturating well on room air. Per morning nurse, aware of labs. No s/s of pain and distress. Left FA AV SHUNT present for bruit and thrills. IV site on Right FA 20G patent and intact SL. Noted skin issues. Bed in lowest position and locked. Call light and bedside table within reach. Will continue plan of care.
[2020-09-17] MEDS: Carvedilol 25mg Tab GT SCH (21:00)
[2020-09-17] MEDS: Atorvastatin 80mg tab GT SCH (22:04)
--- NOTE | 2020-09-17 22:08 | NUR ---
NURSE NOTES: Called Dr. Willams for parameter to hold heparin. Called back and ordered to hold heparin for platelet <70,000. Verified and carried out.
[2020-09-17] MEDS: Heparin 5000 units/ml inj SUBQ SCH (22:15)
[2020-09-18] VITALS: BP 127/62
[2020-09-18 04:00] VITALS: BP 100/59
[2020-09-18] MEDS: HydrALAZINE 50mg tab GT SCH ×3 (06:00→21:44)
[2020-09-18 07:02] LABS: HEMATOCRIT 31.7 % (42.0-52.0); HEMOGLOBIN 10.6 G/DL (14.2-18.0); MEAN CORPUSCULAR VOLUME 90 FL (80-99); PLATELET COUNT 124 K/UL (150-450); RED BLOOD COUNT 3.54 M/UL (4.70-6.10); RED CELL DISTRIBUTION WIDTH 17.5 % (11.6-14.8); WHITE BLOOD COUNT 18.6 K/UL (4.8-10.8)
[2020-09-18] MEDS: Piperacillin/Tazobactam 2.25 GM in D5W 55 ML IV SCH (07:02)
[2020-09-18] MEDS: NovoLOG Insulin Flexpen SUBQ SCH ×4 (07:04→21:00)
[2020-09-18 07:35] LABS: ALBUMIN 1.4 G/DL (3.4-5.0); ALBUMIN/GLOBULIN RATIO 0.3 (1.0-2.7); BILIRUBIN,TOTAL 0.7 MG/DL (0.2-1.0); CALCIUM 8.6 MG/DL (8.5-10.1); CREATININE 7.1 MG/DL (0.55-1.30); POTASSIUM 3.1 MMOL/L (3.5-5.1)
--- NOTE | 2020-09-18 07:57 | NUR ---
NURSE NOTES: Pt received from Darcy MERRILL. Pt in bed resting. Bed low and Locked. call light within reach. No distress noted.
[2020-09-18 08:00] VITALS: BP 120/65
--- NOTE | 2020-09-18 08:07 | NUR ---
NURSE HAND-OFF REPORT: Important Events on Shift:[Supposed to be dialyzed last night but dialysis nurse wasnt able to, abnormal labs MD aware as endorsed by morning shift nurse.] Patient Status: [FC, awake] Diet: [Renal Puree moist thin liquid] Pending Orders: [] Pending Results/Labs:[] Pending MD notification:[] Latest Vital Signs: Temperature 98.0 , Pulse 70 , B/P 100 /52 , Respiratory Rate 21 , O2 SAT 98 , Mechanical Ventilator, O2 Flow Rate . Vital Sign Comment: [] EKG Rhythm: Sinus Rhythm Rhythm change?: N MD Notified?: - MD Response: Latest Branch Fall Score: 50 Fall Risk: High Risk Safety Measures: Call light Within Reach, Bed Alarm Zone 1, Side Rails Side Rails x3, Bed position Low and Locked. Fall Precautions: Yellow Socks Yellow Gown Door Sign Patient Fall Education Report given to [Negrita RN].
--- NOTE | 2020-09-18 09:45 | NUR ---
CASE MANAGEMENT:REVIEW BIBA FROM [facility]; ALOC PMH: ESRD ON HD SI: SEPSIS. COVID POSITIVE. NSTEMI. HYPOKALEMIA 103.1 91 19 120/46 98% ON RA K-2.6 WBC+19.0 BUN+49 CR+7.1 TROPONIN(+)2.142 IS: IV VANCOMYCIN IV ZOSYN TYLENOL GT 500CC NS BOLUS X2 ASA PO IV LEVAQUIN URINE & BLOOD CX CHEST XRAY : TO TELEMETRY UNIT DCP: FROM [facility]
--- NOTE | 2020-09-18 11:45 | Consultation ---
DATE OF CONSULTATION: 09/18/2020 INFECTIOUS DISEASE CONSULTATION CONSULTING PHYSICIAN: Mikhail Roblero MD. REFERRING PHYSICIAN: Shiva Willams MD. REASON FOR CONSULTATION: COVID-19 pneumonia and possible urinary tract infection. HISTORY OF PRESENTING ILLNESS: This is a 65-year-old gentleman with history of renal failure, on dialysis, who was recently found to be COVID positive, who comes in with altered mental status. An Infectious Diseases consultation has been obtained for antibiotics. PAST MEDICAL HISTORY: History of renal failure, on dialysis. SOCIAL HISTORY: Unknown. FAMILY HISTORY: Unknown. REVIEW OF SYSTEMS: Unable to obtain currently. MEDICATIONS: As an inpatient, he is on Levaquin, Flomax, aspirin, amlodipine, subcutaneous heparin, Coreg, atorvastatin, rifaximin, lactulose, [place], Zosyn, hydralazine, tramadol, Tylenol, Renvela, calcium acetate, Zofran, IV vancomycin, and Dilaudid. ALLERGIES: No known drug allergies. PHYSICAL EXAMINATION: VITAL SIGNS: Temperature 97.9, T-max of 101.5, pulse of 72, respiratory rate rate 20, blood pressure 120/65. O2 saturation of 97% on room air. Examination deferred due to COVID-19. LABORATORY DATA: White count 18.6, hemoglobin 10.6, hematocrit 31.7, MCV 90, platelet count of 124,000, neutrophils of 87%. Sodium 136, potassium 3.1, chloride 99, bicarb 23, BUN 57, creatinine 7.1, glucose 155. Calcium 8.6. Total bilirubin 0.7, AST 43, ALT 9, alkaline phosphatase 149. Ammonia 23. C-reactive protein 28.8. Total protein 5.9, albumin 1.4. COVID-19 test is positive. Blood cultures growing gram-positive cocci in clusters. Urine cultures are negative. 2D echo which showed trace aortic regurgitation, mild mitral regurgitation, and trace tricuspid regurgitation on 09/17/2020. ASSESSMENT: This is a 65-year-old gentleman with history of renal failure, on dialysis, who comes in with fevers and is found to have, 1. Gram-positive sepsis, would be concerned regarding endocarditis as a possibility. 2. COVID-19 positive. He is on room air with O2 saturation of 97%. Chest x-ray is normal. 3. Renal failure, on dialysis. PLAN: 1. Continue IV vancomycin. 2. Discontinue Zosyn and Levaquin. 3. We will follow up cultures and adjust antibiotics accordingly. 4. Continue isolation. I would like to thank Dr. Shiva Willams for this consultation. Eduarkuntala Hoang Roblero DR: ANNEL JOB#: [id number] CC:
[2020-09-18 12:00] VITALS: BP 115/60
--- NOTE | 2020-09-18 12:08 | NUR ---
RD ASSESSMENT & RECOMMENDATIONS SEE CARE ACTIVITY FOR COMPLETE ASSESSMENT DAILY ESTIMATED NEEDS: Needs based on ESRD on HD, underweight 47.6kg 30-40 kcals/kg 7281-3191 total kcals 1.25-1.8 g protein/kg 60-86 g total protein Fluid per MD, on HD NUTRITION DIAGNOSIS: Increased kcal and pro needs r/t underweight status and renal dysfunction as evidenced by Low BMI (16.5), pt is 71% of ideal bosy weight, w/ ESRD on HD. CURRENT DIET:Renal puree PO DIET RECOMMENDATIONS: Renal/ puree ADDITIONAL RECOMMENDATIONS: 1) Add NEPRO TID w/ meals + 1:1 feeds as able Consider temporary feeds via GT w/ poor po 2) Daily calibrated bed scale wts 3) f/up w/ WC eval
--- NOTE | 2020-09-18 12:16 | General Progress Note ---
Subjective Date patient seen: Sep 18, 2020 Time patient seen: 11:00 ROS Limited/Unobtainable: Yes Allergies: Coded Allergies: No Known Allergies (Unverified , 02/21/14) Subjective Denies pain Objective Last 24 Hour Vital Signs Date Time Temp Pulse Resp B/P (MAP) Pulse Ox O2 Delivery O2 Flow Rate FiO2 09/18/20 08:00 97.9 72 20 120/65 (83) 97 09/18/20 06:00 100/52 09/18/20 04:00 70 09/18/20 04:00 98.0 70 21 100/59 (73) 98 09/18/20 00:00 65 09/18/20 00:00 97.8 64 19 127/62 (83) 99 09/17/20 21:55 105/63 09/17/20 21:00 70 105/63 09/17/20 21:00 Room Air 09/17/20 20:00 97.6 62 20 105/63 (77) 100 09/17/20 20:00 62 09/17/20 16:00 61 09/17/20 16:00 96.3 61 20 100/43 (62) 96 09/17/20 14:00 100/45 09/17/20 13:28 65 09/17/20 13:25 Room Air 09/17/20 13:00 97.2 69 18 100/45 (63) 100 09/17/20 12:45 98.0 76 19 120/87 100 Mechanical Ventilator Intake and Output 09/17/20 09/18/20 19:00 07:00 Output Total 20 ml Balance -20 ml Output Urine Total 20 ml # Voids 1 # Bowel Movements 2 1 Laboratory Tests 09/17/20 17:00: Hemoglobin A1c 5.1 09/18/20 05:51: POC Whole Blood Glucose 164H 09/18/20 06:26: White Blood Count 18.6H, Red Blood Count 3.54L, Hemoglobin 10.6L, Hematocrit 31.7L, Mean Corpuscular Volume 90, Mean Corpuscular Hemoglobin 29.9, Mean Corpuscular Hemoglobin Concent 33.4, Red Cell Distribution Width 17.5H, Platelet Count 124L, Mean Platelet Volume 9.6, Neutrophils (%) (Auto) , Lymphocytes (%) ( Auto) , Monocytes (%) (Auto) , Eosinophils (%) (Auto) , Basophils (%) (Auto) , Differential Total Cells Counted 100, Neutrophils % (Manual) 87H, Lymphocytes % (Manual) 9L, Monocytes % (Manual) 4, Eosinophils % (Manual) 0, Basophils % (Manual) 0, Band Neutrophils 0, Platelet Estimate DecreasedL, Platelet Morphology Normal, Polychromasia 1+, Hypochromasia 1+, Anisocytosis 1+, Sodium Level 136, Potassium Level 3.1L, Chloride Level 99, Carbon Dioxide Level 23, Anion Gap 14, Blood Urea Nitrogen 57H, Creatinine 7.1H, Estimat Glomerular Filtration Rate 7.8, Glucose Level 155H, Lactic Acid Level 4.30H, Uric Acid 5.9, Calcium Level 8.6, Phosphorus Level 5.0H, Magnesium Level 2.3, Total Bilirubin 0.7, Aspartate Amino Transf (AST/SGOT) 43H, Alanine Aminotransferase (ALT/SGPT) 9L, Alkaline Phosphatase 149H, Ammonia 23, C-Reactive Protein, Quantitative 28.8H, Pro-B-Type Natriuretic Peptide [Pending], Total Protein 5.9L, Albumin 1.4L, Globulin 4.5, Albumin/Globulin Ratio 0.3L, Thyroid Stimulating Hormone (TSH) 3.114, Random Vancomycin Level 20.3 Height (Feet): 5 Height (Inches): 7.00 Weight (Pounds): 105 General Appearance: moderate distress EENT: PERRL/EOMI Neck: non-tender Cardiovascular: normal rate Respiratory/Chest: lungs clear Abdomen: non tender Edema: trace edema Neurologic: head scorer II-XII grossly normal Assessment/Plan Status: stable Assessment/Plan: 65 y/o M with ESRD, Cirrhosis, Covid 19 positive admitted to the hospital due to altered mental status. # Altered mental status # Sepsis due to G + cocci bacteremia # UTI Broad sp antibiotic started and adjusted by ID bank consultant Dr. Roblero. Continue Vancomycin IV and follow up Bcx. Consider need for KODY as indicated. TTE reviewed, no evidence of IE Monitor hemodynamics and HL IVF for now. # ESRD on HD # Hypokalemia Renal consultation with Dr. Kline Defer schedule for HD and replacement of electrolytes # Covid 19 positive CXR without infiltrate today. Initial diagnosis in > 15 days ago. Isolation per protocol Defer to ID bank consultant further interventions. # History of cirrhosis Resume Rifaxim, lactulose # History of diabetic foot ulcer Wound care consult with Dr. Epps # T2DM REG Monitor BG # Diet At SNF on Puree diet #DVT with heparin bid sq # Gi ppx with PPI # FULL CODE Family was updated via phone call today. Disposition. Return to SNF ( [facility] ) when medically stable. Shiva Willams MD Sep 18, 2020 12:16
[2020-09-18] MEDS: Aspirin Baby 81mg GT SCH (12:30)
[2020-09-18] MEDS: Renvela 2400 mg pkt GT SCH ×3 (12:30→18:09)
[2020-09-18] MEDS: Carvedilol 25mg Tab GT SCH ×2 (12:31→21:00)
[2020-09-18] MEDS: Lactulose 20gm/30ml UDC GT SCH ×2 (12:31→18:08)
[2020-09-18] MEDS: Tamsulosin 0.4mg cap ORAL SCH (12:32)
[2020-09-18] MEDS: Heparin 5000 units/ml inj SUBQ SCH ×2 (12:33→21:00)
--- NOTE | 2020-09-18 12:42 | Surgery Progress Note ---
Surgery Progress Note Objective Last 24 Hour Vital Signs Date Time Temp Pulse Resp B/P (MAP) Pulse Ox O2 Delivery O2 Flow Rate FiO2 09/18/20 12:31 73 115/60 09/18/20 12:00 97.5 73 22 115/60 (78) 98 09/18/20 09:00 Room Air 09/18/20 08:00 97.9 72 20 120/65 (83) 97 09/18/20 06:00 100/52 09/18/20 04:00 70 09/18/20 04:00 98.0 70 21 100/59 (73) 98 09/18/20 00:00 65 09/18/20 00:00 97.8 64 19 127/62 (83) 99 09/17/20 21:55 105/63 09/17/20 21:00 70 105/63 09/17/20 21:00 Room Air 09/17/20 20:00 97.6 62 20 105/63 (77) 100 09/17/20 20:00 62 09/17/20 16:00 61 09/17/20 16:00 96.3 61 20 100/43 (62) 96 09/17/20 14:00 100/45 09/17/20 13:28 65 09/17/20 13:25 Room Air 09/17/20 13:00 97.2 69 18 100/45 (63) 100 09/17/20 12:45 98.0 76 19 120/87 100 Mechanical Ventilator I&O Intake and Output 09/17/20 09/18/20 19:00 07:00 Output Total 20 ml Balance -20 ml Output Urine Total 20 ml # Voids 1 # Bowel Movements 2 1 Dressing: saturated, other Wound: other Cardiovascular: RSR Respiratory: decreased breath sounds Abdomen: non-tender, present bowel sounds Extremities: no tenderness, no cyanosis Laboratory Tests Test 09/17/20 17:00 09/18/20 05:51 09/18/20 06:26 Hemoglobin A1c 5.1 % (4.3-6.0) POC Whole Blood Glucose 164 MG/DL (74-106) H White Blood Count 18.6 K/UL (4.8-10.8) H Red Blood Count 3.54 M/UL (4.70-6.10) L Hemoglobin 10.6 G/DL (14.2-18.0) L Hematocrit 31.7 % (42.0-52.0) L Mean Corpuscular Volume 90 FL (80-99) Mean Corpuscular Hemoglobin 29.9 PG (27.0-31.0) Mean Corpuscular Hemoglobin Concent 33.4 G/DL (32.0-36.0) Red Cell Distribution Width 17.5 % (11.6-14.8) H Platelet Count 124 K/UL (150-450) L Mean Platelet Volume 9.6 FL (6.5-10.1) Neutrophils (%) (Auto) % (45.0-75.0) Lymphocytes (%) (Auto) % (20.0-45.0) Monocytes (%) (Auto) % (1.0-10.0) Eosinophils (%) (Auto) % (0.0-3.0) Basophils (%) (Auto) % (0.0-2.0) Differential Total Cells Counted 100 Neutrophils % (Manual) 87 % (45-75) H Lymphocytes % (Manual) 9 % (20-45) L Monocytes % (Manual) 4 % (1-10) Eosinophils % (Manual) 0 % (0-3) Basophils % (Manual) 0 % (0-2) Band Neutrophils 0 % (0-8) Platelet Estimate Decreased L Platelet Morphology Normal Polychromasia 1+ Hypochromasia 1+ Anisocytosis 1+ Sodium Level 136 MMOL/L (136-145) Potassium Level 3.1 MMOL/L (3.5-5.1) L Chloride Level 99 MMOL/L (98-107) Carbon Dioxide Level 23 MMOL/L (21-32) Anion Gap 14 mmol/L (5-15) Blood Urea Nitrogen 57 mg/dL (7-18) H Creatinine 7.1 MG/DL (0.55-1.30) H Estimat Glomerular Filtration Rate 7.8 mL/min (>60) Glucose Level 155 MG/DL (74-106) H Lactic Acid Level 4.30 mmol/L (0.4-2.0) H Uric Acid 5.9 MG/DL (2.6-7.2) Calcium Level 8.6 MG/DL (8.5-10.1) Phosphorus Level 5.0 MG/DL (2.5-4.9) H Magnesium Level 2.3 MG/DL (1.8-2.4) Total Bilirubin 0.7 MG/DL (0.2-1.0) Aspartate Amino Transf (AST/SGOT) 43 U/L (15-37) H Alanine Aminotransferase (ALT/SGPT) 9 U/L (12-78) L Alkaline Phosphatase 149 U/L (46-116) H Ammonia 23 umol/L (11-32) C-Reactive Protein, Quantitative 28.8 mg/dL (0.00-0.90) H Pro-B-Type Natriuretic Peptide Pending Total Protein 5.9 G/DL (6.4-8.2) L Albumin 1.4 G/DL (3.4-5.0) L Globulin 4.5 g/dL Albumin/Globulin Ratio 0.3 (1.0-2.7) L Thyroid Stimulating Hormone (TSH) 3.114 uiU/mL (0.358-3.740) Random Vancomycin Level 20.3 ug/mL Plan Problems: (1) Altered level of consciousness (2) NSTEMI (non-ST elevated myocardial infarction) (3) ESRD (end stage renal disease) on dialysis (4) History of 2019 novel coronavirus disease (COVID-19) (5) Pulmonary edema (6) Pulmonary edema (7) Pulmonary edema (8) Renal failure (9) HTN (hypertension) (10) Hypokalemia (11) Decubitus ulcer (12) Foot ulcer Assessment & Plan: Patient present on admission with a 2 cm centimeter left lateral aspect fifth metatarsal ray area open wound potentially decubitus ulcer identified with 100% slough serosanguineous drainage raised edges minimal cellulitis no purulent drainage. Wound evaluated bedside cleanse with normal saline apply Thera honey gauze and Optifoam change daily and as needed saturation patient was identified to have a sacral right buttock DTI with area of purple induration no fluctuance no abscess no breakdown epidermal. Apply Optifoam dressing change every 3 days and as needed saturation patient identified to have vascular disease distal ischemia beginning to be identified. Duplex ordered. Turn every 2 hours nutritional optimization air soft mattress as necessary. We will follow with recommendations and kindly participate patient's care (13) Sepsis Assessment & Plan: Patient mated with leukocytosis, lactic acidosis, abnormal labs. Septic. Fevers T-max 101.5 now resolved. On IV antibiotics. Urine noted. Micro reviewed. Wounds reviewed. No abscess identified. Local care provided. Continue IV antibiotics. Nutritional supplementation. Okay to use feeding tube. Will follow with recommendations. Thank you letting participate patient's care DAILY ESTIMATED NEEDS: Needs based on ESRD on HD, underweight 47.6kg 30-40 kcals/kg [id number] total kcals 1.25-1.8 g protein/kg 60-86 g total protein Fluid per MD, on HD NUTRITION DIAGNOSIS: Increased kcal and pro needs r/t underweight status and renal dysfunction as evidenced by Low BMI (16.5), pt is 71% of ideal bosy weight, w/ ESRD on HD. CURRENT DIET:Renal puree PO DIET RECOMMENDATIONS: Renal/ puree ADDITIONAL RECOMMENDATIONS: 1) Add NEPRO TID w/ meals + 1:1 feeds as able Consider temporary feeds via GT w/ poor po Alexis Epps Sep 18, 2020 12:42
--- NOTE | 2020-09-18 12:58 | Nephrology Progress Note ---
Assessment/Plan Problem List: (1) ESRD (end stage renal disease) on dialysis (2) Hypokalemia (3) History of 2019 novel coronavirus disease (COVID-19) (4) Sepsis (5) NSTEMI (non-ST elevated myocardial infarction) Assessment End-stage renal disease on dialysis via left AV shunt Hypokalemia Cirrhosis Acute encephalopathy toxic metabolic COVID-19 infection/sepsis History of diabetes and diabetic foot ulcer GT feeding Full code Elevated troponin I Plan September 18: Dialysis ordered yesterday still pending. Discussed with RN. Labs reviewed. Low potassium replaced. Continue per consultants. Adjust blood pressure medications with proper parameters 2D echocardiogram Continue per ID Hemodialysis as needed Monitor electrolytes Subjective ROS Limited/Unobtainable: No Constitutional: Reports: malaise, weakness Objective Objective Last 24 Hour Vital Signs Date Time Temp Pulse Resp B/P (MAP) Pulse Ox O2 Delivery O2 Flow Rate FiO2 09/18/20 12:31 73 115/60 09/18/20 12:00 97.5 73 22 115/60 (78) 98 09/18/20 09:00 Room Air 09/18/20 08:00 97.9 72 20 120/65 (83) 97 09/18/20 06:00 100/52 09/18/20 04:00 70 09/18/20 04:00 98.0 70 21 100/59 (73) 98 09/18/20 00:00 65 09/18/20 00:00 97.8 64 19 127/62 (83) 99 09/17/20 21:55 105/63 09/17/20 21:00 70 105/63 09/17/20 21:00 Room Air 09/17/20 20:00 97.6 62 20 105/63 (77) 100 09/17/20 20:00 62 09/17/20 16:00 61 09/17/20 16:00 96.3 61 20 100/43 (62) 96 09/17/20 14:00 100/45 09/17/20 13:28 65 09/17/20 13:25 Room Air 09/17/20 13:00 97.2 69 18 100/45 (63) 100 Intake and Output 09/17/20 09/18/20 19:00 07:00 Output Total 20 ml Balance -20 ml Output Urine Total 20 ml # Voids 1 # Bowel Movements 2 1 Laboratory Tests 09/17/20 17:00: Hemoglobin A1c 5.1 09/18/20 05:51: POC Whole Blood Glucose 164H 09/18/20 06:26: White Blood Count 18.6H, Red Blood Count 3.54L, Hemoglobin 10.6L, Hematocrit 31.7L, Mean Corpuscular Volume 90, Mean Corpuscular Hemoglobin 29.9, Mean Corpuscular Hemoglobin Concent 33.4, Red Cell Distribution Width 17.5H, Platelet Count 124L, Mean Platelet Volume 9.6, Neutrophils (%) (Auto) , Lymphocytes (%) (Auto) , Monocytes (%) (Auto) , Eosinophils (%) (Auto) , Basophils (%) (Auto) , Differential Total Cells Counted 100, Neutrophils % (Manual) 87H, Lymphocytes % (Manual) 9L, Monocytes % (Manual) 4, Eosinophils % (Manual) 0, Basophils % (Manual) 0, Band Neutrophils 0, Platelet Estimate DecreasedL, Platelet Morphology Normal, Polychromasia 1+, Hypochromasia 1+, Anisocytosis 1+, Sodium Level 136, Potassium Level 3.1L, Chloride Level 99, Carbon Dioxide Level 23, Anion Gap 14, Blood Urea Nitrogen 57H, Creatinine 7.1H, Estimat Glomerular Filtration Rate 7.8, Glucose Level 155H, Lactic Acid Level 4.30H, Uric Acid 5.9, Calcium Level 8.6, Phosphorus Level 5.0H, Magnesium Level 2.3, Total Bilirubin 0.7, Aspartate Amino Transf (AST/SGOT) 43H, Alanine Aminotransferase (ALT/SGPT) 9L, Alkaline Phosphatase 149H, Ammonia 23, C-Reactive Protein, Quantitative 28.8H, Pro-B-Type Natriuretic Peptide [Pending], Total Protein 5.9L, Albumin 1.4L, Globulin 4.5, Albumin/Globulin Ratio 0.3L, Thyroid Stimulating Hormone (TSH) 3.114, Random Vancomycin Level 20.3 Height (Feet): 5 Height (Inches): 7.00 Weight (Pounds): 105 General Appearance: lethargic Cardiovascular: normal rate Respiratory/Chest: decreased breath sounds Abdomen: distended Gerardo Truong MD Sep 18, 2020 12:58
--- NOTE | 2020-09-18 13:02 | NUR ---
NURSE NOTES: Please note that 9am renelva and calcium phosphate missed and 1300 given. I "non-admin" the 1300 however it is actually 0900 that was not given. 1 set returned to pyxix. Also please note that amioderone not given becasue SBP less than 120 upon administration.
--- NOTE | 2020-09-18 13:30 | NUR ---
NURSE NOTES: Confirmed with Young Rn in person that pt will be dialyzed today.
--- NOTE | 2020-09-18 13:50 | NUR ---
NURSE NOTES: Per Dr Willams and Dr Supriya schrader to use [facility] for meds, no Ab Xray noted.
--- NOTE | 2020-09-18 14:00 | NUR ---
NURSE NOTES: Pt noted to be hypertensive at 2om, SBP in 70's./ Raised pt legs and per Dr. Willams gave 250 bolus of NS. afte bnolus BP 97/47. Will recheck soon to ensure it is continuing to go up
--- NOTE | 2020-09-18 15:03 | NUR ---
Speech Pathology Note (Bedside Dysphagia Evaluation) Residency ([facility]): Admitted: 09/07/2020~ Diet: Renal Pureed Diet and thin liquid Brief Note: Mr. Moran is a 65 year old male who was BIB ALS for AMS from SNF on 09/17/2020. He was recently noted COVID 19 positive on 09/01/2020. Upon arrival to ED, the inflammatory marker was remarkable for Ferritin, DDmier, and CRP. However he is ESRD patient with HD and O2 saturation was 98 on room air. At this time, he was not likely a candidate for remidesivir. His complex medical issues include sepsis with gram positive cocci, leukocytosis 19k, low grade fever with hypotensive. 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 He has history of ischemic cardiomyopathy LVEF 40-45% back in 2013. His current troponin is 2.14. He has PEG tube and apparently it is ok to use meds for now. He was on oral diet with pureed renal at [facility]. He has multiple pressure ulcers including stage 3 buttock, stage 2 sacral. His BMI is low. Current Labs: WBC 18.6k, H/H, platelet are low but stable. Na 136, K 3.1, CL 99, Co2 23, BUN 57, Creatine 7.1, Glucose 155. ALT/AST: 9/43, Albumin 1.4. Lactic acid 4.3, Recent CRP is 28.8 Vital Signs: 09/18/2020 @04:00~12:31 BP: 100/52~115/60, Pulse is 70~73, SPO2 97~98 (ORA), Temp is 97.5~98.0 Findings: Mr. Moran's bedside BP is low 75/40 at bedside. His HOB is flat to support perfusion prior to coming to bedside. He appeared to be very ill. His oral cavity is dry with some concretion in oral cavity. Due to hypotension I decided to not elevate his HOB. I decided to not give any PO trial at this time due to high risk of aspiration. Interpretation: 1. Dysphagia -Aspiration risk with septic with hypotension, AMS -malnutrition with multiple pressure ulcer 2. Pt presents with PEG for medication. 3. Isolation for COVID Plan: 1. NPO except ice chips for now 2. Nutrition/Hydration via PEG Dirk Palomo
--- NOTE | 2020-09-18 15:22 | NUR ---
NURSE NOTES: WOUND CARE NOTES:pt presented on admission with multiple Pressure Injuries ,and Ulcerations R and L feet. Sacral DTPI (L)5cm x (W)4cm. Base of wound is maroon with purpuric area at sacrococcygeal prominence. Dark skin discoloration that is dry without erythema,induration or fluctuance posterior,upper R thigh. Partial thickness Ulcer with small amt Biofilm R Knee. Small amt serous exudate noted. Unstageable Ulcer with 100% necrotic base noted to distal/lateral R foot and R 5th metatarsal (L)3.4cm x (W)4.5cm. No exudate or odor noted. Periwound is fluctuant without erythema or changes in skin temp. Unstageable Pressure Injury distal/lateral L Foot (L)1.5cm x (W)1.8cm. Base of wound is 100% necrotic. No odor or exudate noted. Periwound is fluctuant without erythema. R heel is boggy with non-blanchable erythema. L heel is boggy with non-blanchable erythema. Darker skin tone without erythema,induration,fluctuance noted to R lateral Malleolus. Tx.Plan: Apply Moisture Barrier Paste to Sacrum/R Buttocks. Cover with Optifoam drsg. Change every 3 days and prn. Apply Betadine to R foot/R5th metatarsal necrosis. Cover with ABD Pad. Wrap with kerlix. Change every 3 days and prn. Apply Betadine to L foot Ulcer. Cover with ABD pad. Wrap with Kerlix Every days and prn. Apply Cavilon SKIn Barrier to both heels and each Malleoli. Cover each site with Optifoam drsgs. Change every 7 days and prn. Reposition at least every 2hours or as tolerated. Off-load heels with Pillow. APM/TARAN Mattress overlay
[2020-09-18] MEDS ORDERED: NS 250 ML IVPB PRN (15:45)
[2020-09-18 16:00] VITALS: BP 108/63
--- NOTE | 2020-09-18 18:49 | NUR ---
NURSE HAND-OFF REPORT: Important Events on Shift:[Pt appetite very poor. Will not open mouth. offered multiple items multiple times. BS good despite this. Pt had hypotensive episode, bolus of NS was able to reverse. Pt to be dialyzed later tonight. ] Patient Status: [In bed stable] Diet: [Renal Pure moist] Pending Orders: [] Pending Results/Labs:[] Pending MD notification:[] Latest Vital Signs: Temperature 97.7 , Pulse 72 , B/P 108 /63 , Respiratory Rate 20 , O2 SAT 98 , Mechanical Ventilator, O2 Flow Rate . Vital Sign Comment: [Dr. Kim aware of hypotensive event] EKG Rhythm: Sinus Rhythm Rhythm change?: N MD Notified?: - MD Response: Latest Branch Fall Score: 50 Fall Risk: High Risk Safety Measures: Call light Within Reach, Bed Alarm Zone 1, Side Rails Side Rails x3, Bed position Low and Locked. Fall Precautions: Yellow Socks Yellow Gown Door Sign Patient Fall Education Report given to [Pending Rn assignment]. Addendum: 09/18/20 at 1945 by Negrita Candelaria RN Report given to Leeanna MERRILL
--- NOTE | 2020-09-18 19:20 | NUR ---
NURSE NOTES: Received report from Negrita Bonilla RN. Reports of hypotension, delayed dialysis until this evening. Will contiue to monitor closely.
[2020-09-18 20:00] VITALS: BP 84/47
[2020-09-18] MEDS: Atorvastatin 80mg tab GT SCH (21:45)
--- NOTE | 2020-09-18 21:48 | Neurology Progress Note ---
Interim History Interim History ROS Limited/Unobtainable: No Interim History 65 y/o M who was sent to the ER in by ALS for altered level of consciousness from [facility] where he was being supported for recent Covid 19 + diagnosis. The patient is a dialysis patient - ESRD with HD T//Mon and had last session 09/15. Pulse oximetry in the field was 98%. Accu-Chek was 120. He said he felt hot but there done temperature was 99. The patient is usually more alert than he was initially in the ER. He is due for dialysis today. The patient is unable to give a history at this time as he is not answering questions and does respond to pain but minimally. More alert than initially described but confused, non focal Objective Physical Exam Last Vital Signs Date Time Temp Pulse Resp B/P (MAP) Pulse Ox O2 Delivery O2 Flow Rate FiO2 09/18/20 16:04 72 09/18/20 16:00 97.7 20 108/63 (78) 98 09/18/20 09:00 Room Air 09/17/20 09:00 98 Laboratory Tests Test 09/18/20 05:51 09/18/20 06:26 POC Whole Blood Glucose 164 MG/DL (74-106) H White Blood Count 18.6 K/UL (4.8-10.8) H Red Blood Count 3.54 M/UL (4.70-6.10) L Hemoglobin 10.6 G/DL (14.2-18.0) L Hematocrit 31.7 % (42.0-52.0) L Mean Corpuscular Volume 90 FL (80-99) Mean Corpuscular Hemoglobin 29.9 PG (27.0-31.0) Mean Corpuscular Hemoglobin Concent 33.4 G/DL (32.0-36.0) Red Cell Distribution Width 17.5 % (11.6-14.8) H Platelet Count 124 K/UL (150-450) L Mean Platelet Volume 9.6 FL (6.5-10.1) Neutrophils (%) (Auto) % (45.0-75.0) Lymphocytes (%) (Auto) % (20.0-45.0) Monocytes (%) (Auto) % (1.0-10.0) Eosinophils (%) (Auto) % (0.0-3.0) Basophils (%) (Auto) % (0.0-2.0) Differential Total Cells Counted 100 Neutrophils % (Manual) 87 % (45-75) H Lymphocytes % (Manual) 9 % (20-45) L Monocytes % (Manual) 4 % (1-10) Eosinophils % (Manual) 0 % (0-3) Basophils % (Manual) 0 % (0-2) Band Neutrophils 0 % (0-8) Platelet Estimate Decreased L Platelet Morphology Normal Polychromasia 1+ Hypochromasia 1+ Anisocytosis 1+ Sodium Level 136 MMOL/L (136-145) Potassium Level 3.1 MMOL/L (3.5-5.1) L Chloride Level 99 MMOL/L (98-107) Carbon Dioxide Level 23 MMOL/L (21-32) Anion Gap 14 mmol/L (5-15) Blood Urea Nitrogen 57 mg/dL (7-18) H Creatinine 7.1 MG/DL (0.55-1.30) H Estimat Glomerular Filtration Rate 7.8 mL/min (>60) Glucose Level 155 MG/DL (74-106) H Lactic Acid Level 4.30 mmol/L (0.4-2.0) H Uric Acid 5.9 MG/DL (2.6-7.2) Calcium Level 8.6 MG/DL (8.5-10.1) Phosphorus Level 5.0 MG/DL (2.5-4.9) H Magnesium Level 2.3 MG/DL (1.8-2.4) Total Bilirubin 0.7 MG/DL (0.2-1.0) Aspartate Amino Transf (AST/SGOT) 43 U/L (15-37) H Alanine Aminotransferase (ALT/SGPT) 9 U/L (12-78) L Alkaline Phosphatase 149 U/L (46-116) H Ammonia 23 umol/L (11-32) C-Reactive Protein, Quantitative 28.8 mg/dL (0.00-0.90) H Pro-B-Type Natriuretic Peptide Pending Total Protein 5.9 G/DL (6.4-8.2) L Albumin 1.4 G/DL (3.4-5.0) L Globulin 4.5 g/dL Albumin/Globulin Ratio 0.3 (1.0-2.7) L Thyroid Stimulating Hormone (TSH) 3.114 uiU/mL (0.358-3.740) Random Vancomycin Level 20.3 ug/mL Head: normocophalic Neck: no rigidity EENT: benign Neurologic Exam Mental Status: alert Language: normal language Objective somnolent wakes up, confused tangential non focal neuro Impression/Recommendations Problems: (1) Pulmonary edema (2) Pulmonary edema (3) Pulmonary edema (4) Renal failure (5) HTN (hypertension) (6) Hypokalemia (7) Altered level of consciousness (8) NSTEMI (non-ST elevated myocardial infarction) (9) ESRD (end stage renal disease) on dialysis (10) History of 2019 novel coronavirus disease (COVID-19) (11) Sepsis (12) Decubitus ulcer (13) Foot ulcer Status: stable Diagnostic Impression acute encephalopathy likely metabolic due to sepsis, uti, covid, CKD missed HD cont medical support delirium precautions cont atb no need for further neuro imaging Jeovnany Vail MD Sep 18, 2020 21:48
--- NOTE | 2020-09-18 21:48 | Consultation ---
History of Present Illness General Date patient seen: Sep 17, 2020 Chief Complaint: Altered Level of Consciousness Present Illness HPI 65 y/o M who was sent to the ER in by ALS for altered level of consciousness from [facility] where he was being supported for recent Covid 19 + diagnosis. The patient is a dialysis patient - ESRD with HD T//Mon and had last session 09/15. Pulse oximetry in the field was 98%. Accu-Chek was 120. He said he felt hot but there done temperature was 99. The patient is usually more alert than he was initially in the ER. He is due for dialysis today. The patient is unable to give a history at this time as he is not answering questions and does respond to pain but minimally. More alert than initially described but confused, non focal Allergies: Coded Allergies: No Known Allergies (Unverified , 02/21/14) Medication History Scheduled Albuterol Sulfate (Ventolin Hfa), 1 PUFF INH EVERY 6 HOURS, (Reported) Amlodipine Besylate (Norvasc), 5 MG ORAL DAILY Aspirin* (Aspirin*), 81 MG ORAL DAILY, (Reported) Atorvastatin Calcium* (Lipitor*), 10 MG ORAL DAILY, (Reported) Atorvastatin Calcium* (Lipitor*), 80 MG ORAL BEDTIME, (Reported) Benazepril Hcl* (Benazepril Hcl*), 40 MG ORAL DAILY, (Reported) Calcium Acetate (Phoslo), 667 MG PO TID, (Reported) Carvedilol* (Carvedilol*), 25 MG ORAL EVERY 12 HOURS, (Reported) Esomeprazole Magnesium (Nexium), 40 MG ORAL DAILY, (Reported) Hydralazine Hcl* (Hydralazine Hcl*), 100 MG ORAL EVERY 8 HOURS, (Reported) Labetalol HCl (Labetalol HCl), 400 MG ORAL Q8HR Rifaximin* (Xifaxan*), 550 MG ORAL TWICE A DAY, (Reported) Sevelamer Hcl (Renagel), 2,400 MG ORAL THREE TIMES A DAY, (Reported) Tamsulosin HCl (Flomax), 0.4 MG ORAL DAILY, (Reported) Scheduled PRN Acetaminophen* (Acetaminophen 325MG Tablet*), 650 MG ORAL Q4H PRN for For Pain, (Reported) Hydrocodone Bit/Acetaminophen 5-325* ([place] 5-325*), 1 TAB ORAL Q6H PRN for For Pain, (Reported) Tramadol Hcl* (Ultram*), 50 MG ORAL Q6H PRN for For Pain, (Reported) Miscellaneous Medications Insulin Lispro (Humalog), 0 SUBQ, (Reported) Lactulose (Lactulose*), 30 ML ORAL, (Reported) Patient History Healthcare decision maker Resuscitation status Advanced Directive on File Physical Exam Last 24 Hour Vital Signs Date Time Temp Pulse Resp B/P (MAP) Pulse Ox O2 Delivery O2 Flow Rate FiO2 09/18/20 16:04 72 09/18/20 16:00 97.7 74 20 108/63 (78) 98 09/18/20 12:31 73 115/60 09/18/20 12:00 76 09/18/20 12:00 97.5 73 22 115/60 (78) 98 09/18/20 09:00 Room Air 09/18/20 08:00 73 09/18/20 08:00 97.9 72 20 120/65 (83) 97 09/18/20 06:00 100/52 09/18/20 04:00 70 09/18/20 04:00 98.0 70 21 100/59 (73) 98 09/18/20 00:00 65 09/18/20 00:00 97.8 64 19 127/62 (83) 99 09/17/20 21:55 105/63 Intake and Output 09/17/20 09/18/20 19:00 07:00 Output Total 20 ml Balance -20 ml Output Urine Total 20 ml # Voids 1 # Bowel Movements 2 1 Laboratory Tests Test 09/18/20 05:51 09/18/20 06:26 POC Whole Blood Glucose 164 MG/DL (74-106) H White Blood Count 18.6 K/UL (4.8-10.8) H Red Blood Count 3.54 M/UL (4.70-6.10) L Hemoglobin 10.6 G/DL (14.2-18.0) L Hematocrit 31.7 % (42.0-52.0) L Mean Corpuscular Volume 90 FL (80-99) Mean Corpuscular Hemoglobin 29.9 PG (27.0-31.0) Mean Corpuscular Hemoglobin Concent 33.4 G/DL (32.0-36.0) Red Cell Distribution Width 17.5 % (11.6-14.8) H Platelet Count 124 K/UL (150-450) L Mean Platelet Volume 9.6 FL (6.5-10.1) Neutrophils (%) (Auto) % (45.0-75.0) Lymphocytes (%) (Auto) % (20.0-45.0) Monocytes (%) (Auto) % (1.0-10.0) Eosinophils (%) (Auto) % (0.0-3.0) Basophils (%) (Auto) % (0.0-2.0) Differential Total Cells Counted 100 Neutrophils % (Manual) 87 % (45-75) H Lymphocytes % (Manual) 9 % (20-45) L Monocytes % (Manual) 4 % (1-10) Eosinophils % (Manual) 0 % (0-3) Basophils % (Manual) 0 % (0-2) Band Neutrophils 0 % (0-8) Platelet Estimate Decreased L Platelet Morphology Normal Polychromasia 1+ Hypochromasia 1+ Anisocytosis 1+ Sodium Level 136 MMOL/L (136-145) Potassium Level 3.1 MMOL/L (3.5-5.1) L Chloride Level 99 MMOL/L (98-107) Carbon Dioxide Level 23 MMOL/L (21-32) Anion Gap 14 mmol/L (5-15) Blood Urea Nitrogen 57 mg/dL (7-18) H Creatinine 7.1 MG/DL (0.55-1.30) H Estimat Glomerular Filtration Rate 7.8 mL/min (>60) Glucose Level 155 MG/DL (74-106) H Lactic Acid Level 4.30 mmol/L (0.4-2.0) H Uric Acid 5.9 MG/DL (2.6-7.2) Calcium Level 8.6 MG/DL (8.5-10.1) Phosphorus Level 5.0 MG/DL (2.5-4.9) H Magnesium Level 2.3 MG/DL (1.8-2.4) Total Bilirubin 0.7 MG/DL (0.2-1.0) Aspartate Amino Transf (AST/SGOT) 43 U/L (15-37) H Alanine Aminotransferase (ALT/SGPT) 9 U/L (12-78) L Alkaline Phosphatase 149 U/L (46-116) H Ammonia 23 umol/L (11-32) C-Reactive Protein, Quantitative 28.8 mg/dL (0.00-0.90) H Pro-B-Type Natriuretic Peptide Pending Total Protein 5.9 G/DL (6.4-8.2) L Albumin 1.4 G/DL (3.4-5.0) L Globulin 4.5 g/dL Albumin/Globulin Ratio 0.3 (1.0-2.7) L Thyroid Stimulating Hormone (TSH) 3.114 uiU/mL (0.358-3.740) Random Vancomycin Level 20.3 ug/mL Height (Feet): 5 Height (Inches): 7.00 Weight (Pounds): 105 Medications Current Medications Medications (Trade) Dose Ordered Sig/Jannette Route PRN Reason Start Time Stop Time Status Last Admin Dose Admin Acetaminophen (Tylenol) 650 mg Q4H PRN GT Mild Pain (Pain Scale 1-3) 09/17/20 13:00 10/17/20 12:59 Acetaminophen/ Hydrocodone Bitart ([place] 5/325) 1 tab Q6H PRN GT Moderate Pain (Pain Scale 4-6) 09/17/20 17:00 09/24/20 12:29 Albumin Human 100 ml @ 100 mls/hr ONCE ONCE IV 09/18/20 21:45 09/18/20 22:44 UNV Amlodipine Besylate (Norvasc) 5 mg DAILY GT 09/18/20 09:00 10/18/20 08:59 Aspirin (ASA) 81 mg DAILY GT 09/18/20 09:00 11/02/20 08:59 09/18/20 12:30 Atorvastatin Calcium (Lipitor) 80 mg BEDTIME GT 09/17/20 21:00 12/16/20 20:59 09/17/20 22:04 Barium Sulfate (Varibar Honey) 250 ml NOW PRN MC RAD 09/17/20 20:00 09/20/20 19:48 Barium Sulfate (Varibar [place]) 240 ml NOW PRN MC RAD 09/17/20 20:00 09/20/20 19:48 Barium Sulfate (Varibar Pudding) 230 ml NOW PRN MC RAD 09/17/20 20:00 09/20/20 19:48 Barium Sulfate (Varibar Thin Liquid powder) 148 gm NOW PRN MC RAD 09/17/20 20:00 09/20/20 19:48 Calcium Acetate (Phoslo) 667 mg TID GT 09/17/20 13:00 12/16/20 12:59 09/18/20 18:09 Carvedilol (Coreg) 25 mg EVERY 12 HOURS GT 09/17/20 21:00 10/17/20 20:59 09/18/20 12:31 Dextrose (Dextrose 50%) 25 ml Q30M PRN IV Hypoglycemia 09/17/20 12:30 12/16/20 12:29 Dextrose (Dextrose 50%) 50 ml Q30M PRN IV Hypoglycemia 09/17/20 12:30 12/16/20 12:29 Heparin Sodium (Porcine) (Heparin 5000 units/ml) 5,000 units EVERY 12 HOURS SUBQ 09/17/20 21:00 11/01/20 20:59 09/18/20 12:33 Hydralazine HCl (Apresoline) 50 mg EVERY 8 HOURS GT 09/17/20 14:00 12/16/20 13:59 Hydromorphone HCl (Dilaudid) 2 mg Q4H PRN IVP Severe Pain (Pain Scale 7-10) 09/17/20 12:30 09/24/20 12:29 Insulin Aspart (NovoLOG) BEFORE MEALS AND HS SUBQ 09/17/20 16:30 12/16/20 16:29 09/18/20 07:04 Lactulose (Cephulac) 20 gm BID GT 09/17/20 18:00 10/17/20 17:59 09/18/20 18:08 Ondansetron HCl (Zofran) 4 mg Q6H PRN IVP Nausea & Vomiting 09/17/20 12:30 10/17/20 12:29 Rifaximin (Xifaxan) 550 mg TWICE A DAY GT 09/17/20 18:00 09/24/20 17:59 09/18/20 18:09 Sevelamer Carbonate (Renvela) 2,400 mg THREE TIMES A DAY GT 09/17/20 13:00 12/16/20 12:59 09/18/20 18:09 Sodium Chloride 250 ml @ 999 mls/hr Q15MIN PRN IVPB For hypotension 09/18/20 15:45 10/18/20 15:44 Tamsulosin HCl (Flomax) 0.4 mg DAILY ORAL 09/18/20 09:00 10/18/20 08:59 09/18/20 12:32 Tramadol HCl (Ultram) 50 mg Q6H PRN GT Breakthrough Pain 09/17/20 13:00 09/24/20 12:29 Vancomycin HCl (Vanco pharmacy to dose) 1 ea DAILY PRN MISC Per rx protocol 09/17/20 12:30 10/17/20 12:29 Assessment/Plan Problem List: (1) Pulmonary edema ICD Codes: J81.1 - Chronic pulmonary edema SNOMED: 40898443 (2) Pulmonary edema ICD Codes: J81.1 - Chronic pulmonary edema SNOMED: 66346608 (3) Pulmonary edema ICD Codes: J81.1 - Chronic pulmonary edema SNOMED: 87543300 (4) Renal failure ICD Codes: N19 - Unspecified kidney failure SNOMED: 00264086 (5) HTN (hypertension) ICD Codes: I10 - HTN (hypertension) SNOMED: 36058581 (6) Hypokalemia ICD Codes: E87.6 - Hypokalemia SNOMED: 93757950 (7) Altered level of consciousness ICD Codes: R40.4 - Transient alteration of awareness SNOMED: 3256301, 566749169 (8) NSTEMI (non-ST elevated myocardial infarction) ICD Codes: I21.4 - Non-ST elevation (NSTEMI) myocardial infarction SNOMED: 62310977 (9) ESRD (end stage renal disease) on dialysis ICD Codes: N18.6 - ESRD (end stage renal disease) on dialysis; Z99.2 - Dependence on renal dialysis SNOMED: 275392886 (10) History of 2019 novel coronavirus disease (COVID-19) ICD Codes: Z86.19 - Personal history of other infectious and parasitic diseases SNOMED: 787525294192970694, 947067204 (11) Sepsis ICD Codes: A41.9 - Sepsis, unspecified organism SNOMED: 51591947, 984327462 Qualifiers: Qualified Codes: A41.9 - Sepsis, unspecified organism; R65.20 - Severe sepsis without septic shock; G93.40 - Encephalopathy, unspecified (12) Decubitus ulcer ICD Codes: L89.90 - Pressure ulcer of unspecified site, unspecified stage SNOMED: 515563499 (13) Foot ulcer ICD Codes: L97.509 - Non-pressure chronic ulcer of other part of unspecified foot with unspecified severity SNOMED: 06276843 Assessment/Plan: Encephalopathy likely 2*2 covid no seizures critically ill cc 35 min Jeovanny Vail MD Sep 18, 2020 21:48
[2020-09-19] VITALS (32 sets, daily range): BP systolic 80–123; BP diastolic 40–63
--- NOTE | 2020-09-19 02:30 | NUR ---
NURSE NOTES: Notified Alexi that pt was too hypotensive for dialysis. MD wanted this RN to document his "not being OK with pt not receiving ordered dialysis x 48 hr,". ordered pt be "sent to ICU and given pressors." Order entered and carried out.
--- NOTE | 2020-09-19 02:45 | NUR ---
TRANSFER TO FLOOR: Patient transferred to ICU, per Alexi. Report given to Nan Storm and medications given to ICU
--- NOTE | 2020-09-19 03:00 | NUR ---
NURSE NOTES: Patient received from DESIRAE Gutierrez. Patient was observed to be very lethargic, does not follow commands and does moan with discomfort. Patient makes eye contact however does not verbally respond or make needs known. Patient was notable for an ashen skin color. Patient was connected the timber selector and with initial BP of 83/45. Repeat BPs have been SBP 80s. with HR 60s SPOs 100% on 4L. Patient is with GT that is clamped under instruction for MEDS ONLY. Last BM was today. Pt is with a RW 22G with nothing running currently. IV line is clamped however, asymptomatic and patent. Will attempt another access. Pt with SHAMEKA shunt for HD, patient is an ESRD TThS patient. Patient has not received HD 2/2 to hypotension. Patient is AMS, unsure if that is baseline for patient. Attempted to speak to patient in Dive[place] however did not respond. Will review labs, clinical documentation and call MD for any necessary interventions needed. Safety measures are in place with bed locked in the lowest position with call light within reach. Will continue to monitor and carry out MD plan of care.
--- NOTE | 2020-09-19 04:03 | NUR ---
NURSE NOTES: Albumin was not administered 2/2 to transfer. Immediately re-entered order and administered. Patient is with slight improvement. Will continue to monitor and call MD for pressers should the need occur. BP 103/47 at present. HR 69 SPO2 100% on 4L.
[2020-09-19] MEDS: HydrALAZINE 50mg tab GT SCH ×3 (06:00→22:00)
[2020-09-19 06:11] LABS: HEMATOCRIT 29.3 % (42.0-52.0); HEMOGLOBIN 9.6 G/DL (14.2-18.0); MEAN CORPUSCULAR VOLUME 89 FL (80-99); PLATELET COUNT 105 K/UL (150-450); RED CELL DISTRIBUTION WIDTH 17.9 % (11.6-14.8); WHITE BLOOD COUNT 17.6 K/UL (4.8-10.8)
--- NOTE | 2020-09-19 06:18 | Diagnostic Imaging Report ---
EXAM: XR Chest, 1 View CLINICAL HISTORY: F/U TECHNIQUE: Frontal view of the chest. COMPARISON: 09/17/2020. FINDINGS: Lungs: The lungs are well aerated. Probable subsegmental atelectasis at the left lung base. Pleural space: Unremarkable. No pneumothorax. Heart: Cardiomegaly. Mediastinum: Unremarkable. Bones/joints: Osteopenia appeared Vasculature: Atherosclerotic disease of the aortic knob. IMPRESSION: 1. Cardiomegaly per 2. Probable subsegmental atelectasis at the left lung base.
[2020-09-19 06:27] LABS: CALCIUM 8.4 MG/DL (8.5-10.1); CREATININE 7.7 MG/DL (0.55-1.30); POTASSIUM 3.5 MMOL/L (3.5-5.1)
[2020-09-19] MEDS: NovoLOG Insulin Flexpen SUBQ SCH ×4 (06:30→21:26)
[2020-09-19 06:37] LABS: ALANINE AMINOTRANSFERASE 9 U/L (12-78); ALBUMIN 1.9 G/DL (3.4-5.0); ALKALINE PHOSPHATASE 112 U/L (46-116); ASPARTATE AMINO TRANSFERASE 39 U/L (15-37); BILIRUBIN,DIRECT 0.3 MG/DL (0.0-0.3); BILIRUBIN,TOTAL 0.7 MG/DL (0.2-1.0); PHOSPHORUS 5.6 MG/DL (2.5-4.9)
--- NOTE | 2020-09-19 06:49 | NUR ---
NURSE NOTES: Patient observed bedside. Now trying to pull off the leads to the auto specialty services manager. Patient is more alert however is not oriented. Patient opens his eyes, tracks to voice however does not follow commands. Patient appears altered and confused. Patient was also found picking at his skin specifically his chest and taking off his cardiac leads. Oral care was attempted however patient refused to open his mouth after first swab. Will continue to monitor
--- NOTE | 2020-09-19 07:30 | NUR ---
NURSE NOTES: Patient and report received from DESIRAE [place]. Patient is awake and alert, opens his eyes, tracks to voice; however, does not follow commands and does not speak. Patient appears altered and confused. Patient observed picking at his skin, taking off his cardiac leads and taking off the Nasal Cannula. O2sat reads 99% on air sampling and monitoring on room air. B/P remains borderline hypotensive. Pt has a Gtube, used for meds only. Pt is anuric, no urine output noted. Pt has a Lt FA AV shunt for dialysis access, bruit and thrill present. Rt Wrist #22g and Rt FA #18g intact and patent. Bed locked and in lowest position. Call light within reach. Will resume plan of care
[2020-09-19] MEDS: Carvedilol 25mg Tab GT SCH (08:43)
[2020-09-19] MEDS: Tamsulosin 0.4mg cap ORAL SCH (08:44)
[2020-09-19] MEDS: Lactulose 20gm/30ml UDC GT SCH ×2 (08:53→18:10)
[2020-09-19] MEDS: Aspirin Baby 81mg GT SCH (08:53)
[2020-09-19] MEDS: Renvela 2400 mg pkt GT SCH ×3 (08:54→18:10)
[2020-09-19] MEDS: Heparin 5000 units/ml inj SUBQ SCH ×2 (08:55→21:25)
--- NOTE | 2020-09-19 09:00 | NUR ---
NURSE NOTES: Scheduled morning medications given with the exception of the medications that would further cause hypotension due to side effects. Pt turned and repositioned.
--- NOTE | 2020-09-19 11:00 | NUR ---
NURSE NOTES: Dr Willams at bedside assessing pt. Updated him on pt's current condition.
--- NOTE | 2020-09-19 11:23 | General Progress Note ---
Subjective Date patient seen: Sep 19, 2020 Time patient seen: 11:00 ROS Limited/Unobtainable: Yes Allergies: Coded Allergies: No Known Allergies (Unverified , 02/21/14) Subjective Somnolent and minimally verbal. ICU status as he was transferred overnight due to low blood pressure. Objective Last 24 Hour Vital Signs Date Time Temp Pulse Resp B/P (MAP) Pulse Ox O2 Delivery O2 Flow Rate FiO2 09/19/20 08:43 66 94/48 09/19/20 08:43 66 94/48 09/19/20 08:00 97.0 65 23 99/46 (63) 100 09/19/20 07:30 66 13 101/46 (64) 99 09/19/20 07:00 65 17 104/49 (67) 99 09/19/20 06:00 65 20 104/48 (66) 100 09/19/20 06:00 104/48 09/19/20 05:00 66 22 104/47 (66) 100 09/19/20 04:00 70 09/19/20 04:00 70 22 99/47 (64) 100 09/19/20 03:00 97.3 71 21 83/45 (58) 100 09/19/20 00:00 97.2 75 22 85/47 (60) 100 09/19/20 00:00 80 09/18/20 21:44 90/60 09/18/20 21:00 Room Air 09/18/20 20:00 72 09/18/20 20:00 97.2 73 24 84/47 (59) 95 09/18/20 16:04 72 09/18/20 16:00 97.7 74 20 108/63 (78) 98 09/18/20 12:31 73 115/60 09/18/20 12:00 76 09/18/20 12:00 97.5 73 22 115/60 (78) 98 Laboratory Tests 09/18/20 21:52: POC Whole Blood Glucose 168H 09/19/20 05:35: White Blood Count 17.6H, Red Blood Count 3.30L, Hemoglobin 9.6L, Hematocrit 29.3L, Mean Corpuscular Volume 89, Mean Corpuscular Hemoglobin 29.2, Mean Corpuscular Hemoglobin Concent 32.9, Red Cell Distribution Width 17.9H, Platelet Count 105L, Mean Platelet Volume 11.7H, Neutrophils (%) (Auto) , Lymphocytes (%) (Auto) , Monocytes (%) (Auto) , Eosinophils (%) (Auto) , Basophils (%) (Auto) , Differential Total Cells Counted 100, Neutrophils % (Manual) 84H, Lymphocytes % (Manual) 11L, Monocytes % (Manual) 5, Eosinophils % (Manual) 0, Basophils % (Manual) 0, Band Neutrophils 0, Platelet Estimate DecreasedL, Platelet Morphology Normal, Hypochromasia 1+, Anisocytosis 2+, D-Dimer 10.52H, Sodium Level 139, Potassium Level 3.5, Chloride Level 100, Carbon Dioxide Level 20L, Anion Gap 19H, Blood Urea Nitrogen 71H, Creatinine 7.7H, Estimat Glomerular Filtration Rate 7.1, Glucose Level 167H, Lactic Acid Level 4.30H, Uric Acid 6.8, Calcium Level 8.4L, Phosphorus Level 5.6H, Magnesium Level 2.1, Total Bilirubin 0.7, Direct Bilirubin 0.3, Aspartate Amino Transf (AST/SGOT) 39H, Alanine Aminotransferase (ALT/SGPT) 9L, Alkaline Phosphatase 112, C-Reactive Protein, Quantitative 30.1H, Pro-B-Type Natriuretic Peptide [Pending], Total Protein 5.6L , Albumin 1.9L Height (Feet): 5 Height (Inches): 7.00 Weight (Pounds): 105 General Appearance: WD/WN EENT: PERRL/EOMI Neck: non-tender Cardiovascular: normal rate Respiratory/Chest: decreased breath sounds Abdomen: non tender Neurologic: ordnance officer II-XII grossly normal Assessment/Plan Status: stable Assessment/Plan: 65 y/o M with ESRD, Cirrhosis, Covid 19 positive admitted to the hospital due to altered mental status. # Altered mental status # Sepsis due to G + cocci bacteremia Staph Aureus ( pending sensitivities ) # UTI Broad sp antibiotic started and adjusted by ID excellence consultant Dr. Roblero. Continue Vancomycin IV and follow up Bcx. Consider need for KODY as indicated. TTE reviewed, no evidence of IE Monitor hemodynamics and HL IVF for now. ICU support. Possible need for central line for vasopressor support. ER attending only will place central line in the event of an emergency. Will discuss with Dr. Epps ( surgeon ) who is consulting in the case for wound management. # ESRD on HD # Hypokalemia Renal consultation with Dr. Kline Defer schedule for HD and replacement of electrolytes. Recommend UF and avoid removal of volume due to hypotension. # Covid 19 positive CXR without infiltrate today. Initial diagnosis in > 15 days ago. Isolation per protocol Defer to ID excellence consultant further interventions. # History of cirrhosis Resume Rifaxim, lactulose # History of diabetic foot ulcer Wound care consult with Dr. Epps # T2DM REG Monitor BG # Diet At SNF on Puree diet as tolerated. NPO per ST evaluation. #DVT with heparin bid sq # Gi ppx with PPI # FULL CODE Family was updated via phone call today. Disposition. Return to SNF ( CV Mp ) when medically stable. Shiva Willams MD Sep 19, 2020 11:23
[2020-09-19] MEDS: DOPamine 400mg/250ml 250 ML IV SCH ×2 (11:30→18:30)
--- NOTE | 2020-09-19 11:30 | NUR ---
NURSE NOTES: Dr Truong at bedside assessing pt. Updated him on pt's current condition. New orders received and acknowledged. Dr Willams contacted Dr Epps to put in a central line due to pt's consistent hypotension.
--- NOTE | 2020-09-19 12:09 | Nephrology Progress Note ---
Assessment/Plan Problem List: (1) ESRD (end stage renal disease) on dialysis (2) Hypokalemia (3) History of 2019 novel coronavirus disease (COVID-19) (4) Sepsis (5) NSTEMI (non-ST elevated myocardial infarction) Assessment End-stage renal disease on dialysis via left AV shunt Hypokalemia Cirrhosis Acute encephalopathy toxic metabolic COVID-19 infection/sepsis History of diabetes and diabetic foot ulcer GT feeding Full code Elevated troponin I Plan September 19: Patient has not been dialyzed since admission. Last night the dialysis nurse did not dialyze citing low blood pressure. Patient is now in ICU. He is going to be started on dopamine for blood pressure support and dialysis. Discussed with Dr. Willams. Waiting line insertion to initiate dopamine. Continue to monitor renal parameters. Patient requires urgent dialysis and blood pressure support and at this time no consent could be obtained from the family members. It is my belief that we should proceed with placement of a line for initiation of pressors and follow with dialysis treatment which can be lifesaving for this patient. September 18: Dialysis ordered yesterday still pending. Discussed with RN. Labs reviewed. Low potassium replaced. Continue per consultants. Adjust blood pressure medications with proper parameters 2D echocardiogram Continue per ID Hemodialysis as needed Monitor electrolytes Subjective ROS Limited/Unobtainable: No Constitutional: Reports: malaise, weakness Objective Objective Last 24 Hour Vital Signs Date Time Temp Pulse Resp B/P (MAP) Pulse Ox O2 Delivery O2 Flow Rate FiO2 09/19/20 08:43 66 94/48 09/19/20 08:43 66 94/48 09/19/20 08:00 97.0 65 23 99/46 (63) 100 09/19/20 07:30 66 13 101/46 (64) 99 09/19/20 07:00 65 17 104/49 (67) 99 09/19/20 06:00 65 20 104/48 (66) 100 09/19/20 06:00 104/48 09/19/20 05:00 66 22 104/47 (66) 100 09/19/20 04:00 70 09/19/20 04:00 70 22 99/47 (64) 100 09/19/20 03:00 97.3 71 21 83/45 (58) 100 09/19/20 00:00 97.2 75 22 85/47 (60) 100 09/19/20 00:00 80 09/18/20 21:44 90/60 09/18/20 21:00 Room Air 09/18/20 20:00 72 09/18/20 20:00 97.2 73 24 84/47 (59) 95 09/18/20 16:04 72 09/18/20 16:00 97.7 74 20 108/63 (78) 98 09/18/20 12:31 73 115/60 Current Medications Medications (Trade) Dose Ordered Sig/Jannette Route PRN Reason Start Time Stop Time Status Last Admin Dose Admin Acetaminophen (Tylenol) 650 mg Q4H PRN GT Mild Pain (Pain Scale 1-3) 09/17/20 13:00 10/17/20 12:59 Acetaminophen/ Hydrocodone Bitart (Valentine 5/325) 1 tab Q6H PRN GT Moderate Pain (Pain Scale 4-6) 09/17/20 17:00 09/24/20 12:29 Aspirin (ASA) 81 mg DAILY GT 09/18/20 09:00 11/02/20 08:59 09/19/20 08:53 Atorvastatin Calcium (Lipitor) 80 mg BEDTIME GT 09/17/20 21:00 12/16/20 20:59 09/18/20 21:45 Barium Sulfate (Varibar Honey) 250 ml NOW PRN MC RAD 09/17/20 20:00 09/20/20 19:48 Barium Sulfate (Varibar [place]) 240 ml NOW PRN MC RAD 09/17/20 20:00 09/20/20 19:48 Barium Sulfate (Varibar Pudding) 230 ml NOW PRN MC RAD 09/17/20 20:00 09/20/20 19:48 Barium Sulfate (Varibar Thin Liquid powder) 148 gm NOW PRN MC RAD 09/17/20 20:00 09/20/20 19:48 Calcium Acetate (Phoslo) 667 mg TID GT 09/17/20 13:00 12/16/20 12:59 09/19/20 08:53 Dexamethasone (Decadron) 6 mg DAILY ORAL 09/19/20 09:00 09/28/20 09:01 09/19/20 08:54 Dextrose (Dextrose 50%) 25 ml Q30M PRN IV Hypoglycemia 09/17/20 12:30 12/16/20 12:29 Dextrose (Dextrose 50%) 50 ml Q30M PRN IV Hypoglycemia 09/17/20 12:30 12/16/20 12:29 Dopamine HCl/ Dextrose 250 ml @ 3.572 mls/ hr Q24H IV 09/19/20 11:30 09/22/20 11:26 Heparin Sodium (Porcine) (Heparin 5000 units/ml) 5,000 units EVERY 12 HOURS SUBQ 09/17/20 21:00 11/01/20 20:59 09/19/20 08:55 Hydralazine HCl (Apresoline) 50 mg EVERY 8 HOURS GT 09/17/20 14:00 12/16/20 13:59 Hydromorphone HCl (Dilaudid) 2 mg Q4H PRN IVP Severe Pain (Pain Scale 7-10) 09/17/20 12:30 09/24/20 12:29 Insulin Aspart (NovoLOG) BEFORE MEALS AND HS SUBQ 09/17/20 16:30 12/16/20 16:29 09/19/20 11:56 Lactulose (Cephulac) 20 gm BID GT 09/17/20 18:00 10/17/20 17:59 09/19/20 08:53 Ondansetron HCl (Zofran) 4 mg Q6H PRN IVP Nausea & Vomiting 09/17/20 12:30 10/17/20 12:29 Rifaximin (Xifaxan) 550 mg TWICE A DAY GT 09/17/20 18:00 09/24/20 17:59 09/19/20 08:54 Sevelamer Carbonate (Renvela) 2,400 mg THREE TIMES A DAY GT 09/17/20 13:00 12/16/20 12:59 09/19/20 08:54 Sodium Chloride 250 ml @ 999 mls/hr Q15MIN PRN IVPB For hypotension 09/18/20 15:45 10/18/20 15:44 Tamsulosin HCl (Flomax) 0.4 mg DAILY ORAL 09/18/20 09:00 10/18/20 08:59 09/18/20 12:32 Tramadol HCl (Ultram) 50 mg Q6H PRN GT Breakthrough Pain 09/17/20 13:00 09/24/20 12:29 Vancomycin HCl (Vanco pharmacy to dose) 1 ea DAILY PRN MISC Per rx protocol 09/17/20 12:30 10/17/20 12:29 Laboratory Tests 09/18/20 21:52: POC Whole Blood Glucose 168H 09/19/20 05:35: White Blood Count 17.6H, Red Blood Count 3.30L, Hemoglobin 9.6L, Hematocrit 29.3L, Mean Corpuscular Volume 89, Mean Corpuscular Hemoglobin 29.2, Mean Corpuscular Hemoglobin Concent 32.9, Red Cell Distribution Width 17.9H, Platelet Count 105L, Mean Platelet Volume 11.7H, Neutrophils (%) (Auto) , Lymphocytes (%) (Auto) , Monocytes (%) (Auto) , Eosinophils (%) (Auto) , Basophils (%) (Auto) , Differential Total Cells Counted 100, Neutrophils % (Manual) 84H, Lymphocytes % (Manual) 11L, Monocytes % (Manual) 5, Eosinophils % (Manual) 0, Basophils % (Manual) 0, Band Neutrophils 0, Platelet Estimate DecreasedL, Platelet Morphology Normal, Hypochromasia 1+, Anisocytosis 2+, D-Dimer 10.52H, Sodium Level 139, Potassium Level 3.5, Chloride Level 100, Carbon Dioxide Level 20L, Anion Gap 19H, Blood Urea Nitrogen 71H, Creatinine 7.7H, Estimat Glomerular Filtration Rate 7.1, Glucose Level 167H, Lactic Acid Level 4.30H, Uric Acid 6.8, Calcium Level 8.4L, Phosphorus Level 5.6H, Magnesium Level 2.1, Total Bilirubin 0.7, Direct Bilirubin 0.3, Aspartate Amino Transf (AST/SGOT) 39H, Alanine Aminotransferase (ALT/SGPT) 9L, Alkaline Phosphatase 112, C-Reactive Protein, Quantitative 30.1H, Pro-B-Type Natriuretic Peptide [Pending], Total Protein 5.6L , Albumin 1.9L 09/19/20 11:46: POC Whole Blood Glucose 187H Height (Feet): 5 Height (Inches): 7.00 Weight (Pounds): 105 General Appearance: no apparent distress Cardiovascular: normal rate Respiratory/Chest: decreased breath sounds Abdomen: distended Gerardo Truong MD Sep 19, 2020 12:09
--- NOTE | 2020-09-19 12:14 | NUR ---
NURSE NOTES: [facility] Nephrology called @ [phone] to schedule dialysis for tomorrow.
--- NOTE | 2020-09-19 13:00 | NUR ---
NURSE NOTES: Spoke to pt's and daughter. Consent obtained for dialysis and central line.
--- NOTE | 2020-09-19 14:00 | NUR ---
NURSE NOTES: Awaiting Dr Epps's arrival to insert central line.
--- NOTE | 2020-09-19 15:00 | NUR ---
NURSE NOTES: Pt fully cleaned and linens changed after pt had a moderate soft brown BM. Turned and repositioned for comfort.
--- NOTE | 2020-09-19 15:42 | Neurology Progress Note ---
Interim History Interim History ROS Limited/Unobtainable: No Interim History somnolent, poor interaction low bp - needs pressors transferred to icu Objective Physical Exam Last Vital Signs Date Time Temp Pulse Resp B/P (MAP) Pulse Ox O2 Delivery O2 Flow Rate FiO2 09/19/20 15:00 67 20 94/42 (59) 97 09/19/20 12:00 Nasal Cannula 4.0 09/19/20 12:00 97.0 09/17/20 09:00 98 Laboratory Tests Test 09/18/20 21:52 09/19/20 05:35 09/19/20 11:35 09/19/20 11:46 POC Whole Blood Glucose 168 MG/DL (74-106) H 187 MG/DL (74-106) H White Blood Count 17.6 K/UL (4.8-10.8) H Red Blood Count 3.30 M/UL (4.70-6.10) L Hemoglobin 9.6 G/DL (14.2-18.0) L Hematocrit 29.3 % (42.0-52.0) L Mean Corpuscular Volume 89 FL (80-99) Mean Corpuscular Hemoglobin 29.2 PG (27.0-31.0) Mean Corpuscular Hemoglobin Concent 32.9 G/DL (32.0-36.0) Red Cell Distribution Width 17.9 % (11.6-14.8) H Platelet Count 105 K/UL (150-450) L Mean Platelet Volume 11.7 FL (6.5-10.1) H Neutrophils (%) (Auto) % (45.0-75.0) Lymphocytes (%) (Auto) % (20.0-45.0) Monocytes (%) (Auto) % (1.0-10.0) Eosinophils (%) (Auto) % (0.0-3.0) Basophils (%) (Auto) % (0.0-2.0) Differential Total Cells Counted 100 Neutrophils % (Manual) 84 % (45-75) H Lymphocytes % (Manual) 11 % (20-45) L Monocytes % (Manual) 5 % (1-10) Eosinophils % (Manual) 0 % (0-3) Basophils % (Manual) 0 % (0-2) Band Neutrophils 0 % (0-8) Platelet Estimate Decreased L Platelet Morphology Normal Hypochromasia 1+ Anisocytosis 2+ D-Dimer 10.52 mg/L FEU (0.00-0.49) H Sodium Level 139 MMOL/L (136-145) Potassium Level 3.5 MMOL/L (3.5-5.1) Chloride Level 100 MMOL/L (98-107) Carbon Dioxide Level 20 MMOL/L (21-32) L Anion Gap 19 mmol/L (5-15) H Blood Urea Nitrogen 71 mg/dL (7-18) H Creatinine 7.7 MG/DL (0.55-1.30) H Estimat Glomerular Filtration Rate 7.1 mL/min (>60) Glucose Level 167 MG/DL (74-106) H Lactic Acid Level 4.30 mmol/L (0.4-2.0) H 3.80 mmol/L (0.4-2.0) H Uric Acid 6.8 MG/DL (2.6-7.2) Calcium Level 8.4 MG/DL (8.5-10.1) L Phosphorus Level 5.6 MG/DL (2.5-4.9) H Magnesium Level 2.1 MG/DL (1.8-2.4) Total Bilirubin 0.7 MG/DL (0.2-1.0) Direct Bilirubin 0.3 MG/DL (0.0-0.3) Aspartate Amino Transf (AST/SGOT) 39 U/L (15-37) H Alanine Aminotransferase (ALT/SGPT) 9 U/L (12-78) L Alkaline Phosphatase 112 U/L (46-116) C-Reactive Protein, Quantitative 30.1 mg/dL (0.00-0.90) H Pro-B-Type Natriuretic Peptide Pending Total Protein 5.6 G/DL (6.4-8.2) L Albumin 1.9 G/DL (3.4-5.0) L Head: normocophalic Neck: no rigidity EENT: benign Neurologic Exam Mental Status: alert Language: normal language Objective somnolent wakes up, confused tangential non focal neuro Impression/Recommendations Problems: (1) Pulmonary edema (2) Pulmonary edema (3) Pulmonary edema (4) Renal failure (5) HTN (hypertension) (6) Hypokalemia (7) Altered level of consciousness (8) NSTEMI (non-ST elevated myocardial infarction) (9) ESRD (end stage renal disease) on dialysis (10) History of 2019 novel coronavirus disease (COVID-19) (11) Sepsis (12) Decubitus ulcer (13) Foot ulcer Status: stable Diagnostic Impression acute encephalopathy likely metabolic due to sepsis, uti, covid, CKD missed HD icu leve map > 65 cont medical support delirium precautions cont atb no need for further neuro imaging poor prognosis Jeovanny Vail MD Sep 19, 2020 15:42
--- NOTE | 2020-09-19 17:00 | NUR ---
NURSE NOTES: Spoke to dialysis nurse, Curtis, who said she will be here to do dialysis between [id number]. Pt fully cleaned and linens changed again d/t having a BM. Pt continues to take off NC, however, on Room Air, pt O2sat 99% on quality assurance monitor body.
[2020-09-19] MEDS ORDERED: Lidocaine 1% Plain 30 ml INJ SCH (17:15)
--- NOTE | 2020-09-19 18:30 | NUR ---
NURSE NOTES: Dr Epps placed central line. Rt femoral TLC. Bio patch and dressing applied and dated. Pt tolerated procedure well.
--- NOTE | 2020-09-19 18:37 | Surgery Progress Note ---
Surgery Progress Note Subjective Additional Comments declining central line placed for pressors hypotensive Objective Last 24 Hour Vital Signs Date Time Temp Pulse Resp B/P (MAP) Pulse Ox O2 Delivery O2 Flow Rate FiO2 09/19/20 18:30 111/46 09/19/20 18:00 68 17 86/41 (56) 97 09/19/20 17:00 69 21 106/45 (65) 99 09/19/20 16:30 67 22 104/47 (66) 99 09/19/20 16:00 68 09/19/20 16:00 97.0 68 21 101/45 (63) 98 09/19/20 16:00 Nasal Cannula 4.0 09/19/20 15:00 67 20 94/42 (59) 97 09/19/20 14:00 65 22 106/45 (65) 99 09/19/20 13:30 66 18 104/45 (64) 98 09/19/20 13:02 101/47 09/19/20 13:00 66 19 101/47 (65) 98 09/19/20 12:00 Nasal Cannula 4.0 09/19/20 12:00 66 09/19/20 12:00 97.0 65 19 100/44 (62) 100 09/19/20 11:30 65 17 104/50 (68) 100 09/19/20 11:00 65 20 100/44 (62) 100 09/19/20 10:30 66 13 100/43 (62) 100 09/19/20 10:00 66 20 89/40 (56) 99 09/19/20 09:30 65 18 86/44 (58) 100 09/19/20 09:00 66 18 99/50 (66) 100 09/19/20 08:43 66 94/48 09/19/20 08:43 66 94/48 09/19/20 08:00 Nasal Cannula 4.0 09/19/20 08:00 65 09/19/20 08:00 97.0 65 23 99/46 (63) 100 09/19/20 07:30 66 13 101/46 (64) 99 09/19/20 07:00 65 17 104/49 (67) 99 09/19/20 06:00 65 20 104/48 (66) 100 09/19/20 06:00 104/48 12/19/20 05:00 66 22 104/47 (66) 100 09/19/20 04:00 70 09/19/20 04:00 70 22 99/47 (64) 100 09/19/20 03:00 97.3 71 21 83/45 (58) 100 09/19/20 00:00 97.2 75 22 85/47 (60) 100 09/19/20 00:00 80 09/18/20 21:44 90/60 09/18/20 21:00 Room Air 09/18/20 20:00 72 09/18/20 20:00 97.2 73 24 84/47 (59) 95 Cardiovascular: RSR Respiratory: decreased breath sounds Abdomen: non-tender, present bowel sounds Extremities: other Laboratory Tests Test 09/18/20 21:52 09/19/20 05:35 09/19/20 11:35 09/19/20 11:46 POC Whole Blood Glucose 168 MG/DL (74-106) H 187 MG/DL (74-106) H White Blood Count 17.6 K/UL (4.8-10.8) H Red Blood Count 3.30 M/UL (4.70-6.10) L Hemoglobin 9.6 G/DL (14.2-18.0) L Hematocrit 29.3 % (42.0-52.0) L Mean Corpuscular Volume 89 FL (80-99) Mean Corpuscular Hemoglobin 29.2 PG (27.0-31.0) Mean Corpuscular Hemoglobin Concent 32.9 G/DL (32.0-36.0) Red Cell Distribution Width 17.9 % (11.6-14.8) H Platelet Count 105 K/UL (150-450) L Mean Platelet Volume 11.7 FL (6.5-10.1) H Neutrophils (%) (Auto) % (45.0-75.0) Lymphocytes (%) (Auto) % (20.0-45.0) Monocytes (%) (Auto) % (1.0-10.0) Eosinophils (%) (Auto) % (0.0-3.0) Basophils (%) (Auto) % (0.0-2.0) Differential Total Cells Counted 100 Neutrophils % (Manual) 84 % (45-75) H Lymphocytes % (Manual) 11 % (20-45) L Monocytes % (Manual) 5 % (1-10) Eosinophils % (Manual) 0 % (0-3) Basophils % (Manual) 0 % (0-2) Band Neutrophils 0 % (0-8) Platelet Estimate Decreased L Platelet Morphology Normal Hypochromasia 1+ Anisocytosis 2+ D-Dimer 10.52 mg/L FEU (0.00-0.49) H Sodium Level 139 MMOL/L (136-145) Potassium Level 3.5 MMOL/L (3.5-5.1) Chloride Level 100 MMOL/L (98-107) Carbon Dioxide Level 20 MMOL/L (21-32) L Anion Gap 19 mmol/L (5-15) H Blood Urea Nitrogen 71 mg/dL (7-18) H Creatinine 7.7 MG/DL (0.55-1.30) H Estimat Glomerular Filtration Rate 7.1 mL/min (>60) Glucose Level 167 MG/DL (74-106) H Lactic Acid Level 4.30 mmol/L (0.4-2.0) H 3.80 mmol/L (0.4-2.0) H Uric Acid 6.8 MG/DL (2.6-7.2) Calcium Level 8.4 MG/DL (8.5-10.1) L Phosphorus Level 5.6 MG/DL (2.5-4.9) H Magnesium Level 2.1 MG/DL (1.8-2.4) Total Bilirubin 0.7 MG/DL (0.2-1.0) Direct Bilirubin 0.3 MG/DL (0.0-0.3) Aspartate Amino Transf (AST/SGOT) 39 U/L (15-37) H Alanine Aminotransferase (ALT/SGPT) 9 U/L (12-78) L Alkaline Phosphatase 112 U/L (46-116) C-Reactive Protein, Quantitative 30.1 mg/dL (0.00-0.90) H Pro-B-Type Natriuretic Peptide Pending Total Protein 5.6 G/DL (6.4-8.2) L Albumin 1.9 G/DL (3.4-5.0) L Plan Problems: (1) Altered level of consciousness (2) NSTEMI (non-ST elevated myocardial infarction) (3) ESRD (end stage renal disease) on dialysis (4) History of 2019 novel coronavirus disease (COVID-19) (5) Pulmonary edema (6) Pulmonary edema (7) Pulmonary edema (8) Renal failure (9) HTN (hypertension) (10) Hypokalemia (11) Decubitus ulcer (12) Foot ulcer Assessment & Plan: Patient present on admission with a 2 cm centimeter left lateral aspect fifth metatarsal ray area open wound potentially decubitus ulcer identified with 100% slough serosanguineous drainage raised edges minimal cellulitis no purulent drainage. Wound evaluated bedside cleanse with normal saline apply Thera honey gauze and Optifoam change daily and as needed saturation patient was identified to have a sacral right buttock DTI with area of purple induration no fluctuance no abscess no breakdown epidermal. Apply Optifoam dressing change every 3 days and as needed saturation patient identified to have vascular disease distal ischemia beginning to be identified. Duplex ordered. Turn every 2 hours nutritional optimization air soft mattress as necessary. We will follow with recommendations and kindly participate patient's care pt presented on admission with multiple Pressure Injuries ,and Ulcerations R and L feet. Sacral DTPI (L)5cm x (W)4cm. Base of wound is maroon with purpuric area at sacrococcygeal prominence. Dark skin discoloration that is dry without erythema,induration or fluctuance posterior,upper R thigh. Partial thickness Ulcer with small amt Biofilm R Knee. Small amt serous exudate noted. Unstageable Ulcer with 100% necrotic base noted to distal/lateral R foot and R 5th metatarsal (L)3.4cm x (W)4.5cm. No exudate or odor noted. Periwound is fluctuant without erythema or changes in skin temp. Unstageable Pressure Injury distal/lateral L Foot (L)1.5cm x (W)1.8cm. Base of wound is 100% necrotic. No odor or exudate noted. Periwound is fluctuant without erythema. R heel is boggy with non-blanchable erythema. L heel is boggy with non-blanchable erythema. Darker skin tone without erythema,induration,fluctuance noted to R lateral Malleolus. Tx.Plan: Apply Moisture Barrier Paste to Sacrum/R Buttocks. Cover with Optifoam drsg. Change every 3 days and prn. Apply Betadine to R foot/R5th metatarsal necrosis. Cover with ABD Pad. Wrap with kerlix. Change every 3 days and prn. Apply Betadine to L foot Ulcer. Cover with ABD pad. Wrap with Kerlix Every days and prn. Apply Cavilon SKIn Barrier to both heels and each Malleoli. Cover each site with Optifoam drsgs. Change every 7 days and prn. Reposition at least every 2hours or as tolerated. Off-load heels with Pillow. APM/TARAN Mattress overlay (13) Sepsis Assessment & Plan: Patient mated with leukocytosis, lactic acidosis, abnormal labs. Septic. Fevers T-max 101.5 now resolved. On IV antibiotics. Urine noted. Micro reviewed. Wounds reviewed. No abscess identified. Local care provided. Continue IV antibiotics. Nutritional supplementation. Okay to use feeding tube. Will follow with recommendations. Thank you letting participate patient's care DAILY ESTIMATED NEEDS: Needs based on ESRD on HD, underweight 47.6kg 30-40 kcals/kg 3580-0994 total kcals 1.25-1.8 g protein/kg 60-86 g total protein Fluid per MD, on HD NUTRITION DIAGNOSIS: Increased kcal and pro needs r/t underweight status and renal dysfunction as evidenced by Low BMI (16.5), pt is 71% of ideal bosy weight, w/ ESRD on HD. CURRENT DIET:Renal puree PO DIET RECOMMENDATIONS: Renal/ puree ADDITIONAL RECOMMENDATIONS: 1) Add NEPRO TID w/ meals + 1:1 feeds as able Consider temporary feeds via GT w/ poor po Alexis Epps Sep 19, 2020 18:37
--- NOTE | 2020-09-19 18:39 | Operative Note - PDOC ---
Operative Note Operative Note Date of Operation/Procedure: Sep 19, 2020 Pre-op Diagnosis: Hypotension Sepsis Procedure: Right femoral central venous catheter insertion Post-op Diagnosis: same as pre-op Surgeon: Alexis Epps MD Anesthesia: local Specimen: none Complications: none Condition: unstable Fluids: Not applicable Estimated Blood Loss: minimal Drains: none Implant(s) used?: No Indications for Procedure Blood pressures been labile day and plan for worst starting pressors. Patient to have central venous access. Poor peripheral access. Central venous catheter indicated recommended urgently. Placed at bedside intensive care unit. Description of Procedure Patient was made comfortable in the supine position. The right groin is prepped and draped in same surgical fashion. Local anatomic landmarks identified. Local anesthetic infiltrated. The right femoral vein was cannulated on first stick without complication. Good venous flow identified. Guidewire placed through the needle needle removed. Small skin incision made around the salomon dewire. A dilator was used and tract was dilated. A triple-lumen catheter was inserted over the guidewire guidewire was removed and discarded. All 3 ports flushed and aspirated appropriately. Line was sutured in place. Dressings were applied. Patient taught procedure well. Line okay to use. Alexis Epps Sep 19, 2020 18:39
--- NOTE | 2020-09-19 19:18 | NUR ---
NURSE HAND-OFF REPORT: Latest Vital Signs: Temperature 97.0 , Pulse 74 , B/P 90 /47 , Respiratory Rate 16 , O2 SAT 95 , Mechanical Ventilator, O2 Flow Rate 4.0 . Vital Sign Comment: EKG Rhythm: Sinus Rhythm Rhythm change?: N MD Notified?: - MD Response: Latest Branch Fall Score: 50 Fall Risk: High Risk Safety Measures: Call light Within Reach, Bed Alarm Zone 1, Side Rails Side Rails x3, Bed position Low and Locked. Fall Precautions: Yellow Socks Yellow Gown Door Sign Patient Fall Education Report given to Katerina RN and Patricia RN.
--- NOTE | 2020-09-19 19:25 | NUR ---
NURSE NOTES: NURSE NOTES: Received report from DESIRAE Barajas. Pt is awake, briefly tracks when shaken. [place] speaking but currentkly non-verbal. Pt appears to be in no distress. mud engineer shows ST and pt is saturating at 96% on 4L NC. BP is currently stable. No signs of pain noted. GT intact, running nepro 30ml/hr, no residuals noted, flushes well. R Wrist 22g and R FA 18g asymptomatic and flushes well. R fem TLC inserted today, dressing changed today, asymptomatic and flushing well. Skin issues noted. HOB elevated, call light within reach, side rails x3, bed alarmed, locked, and in lowest poistion. Will continue to monitor. Will continue plan of care.
--- NOTE | 2020-09-19 20:10 | NUR ---
NURSE NOTES: Dialysis nurse, Curtis, arrived to unit. Pt currently stable. No signs of distress. Will closely monitor pt during dialysis.
[2020-09-19] MEDS: Dyna-Hex 2% Top Sol 2oz TOPIC SCH (21:24)
[2020-09-19] MEDS: Atorvastatin 80mg tab GT SCH (21:24)
--- NOTE | 2020-09-19 21:50 | NUR ---
NURSE NOTES: Pt's daughter called, updated her on her father's status. Notified her that pt is currently receiving dialysis.
--- NOTE | 2020-09-19 23:15 | NUR ---
NURSE NOTES: Pt is asleep, no signs of distress or pain. HD finished, 0L out due to low BP and clogged shunt.
[2020-09-20] VITALS (45 sets, daily range): BP systolic 90–132; BP diastolic 39–71
--- NOTE | 2020-09-20 01:44 | NUR ---
NURSE NOTES: Turned pt, no BM. No signs of distress. Vitals stable.
--- NOTE | 2020-09-20 03:12 | NUR ---
NURSE NOTES: Titrated dopamine drip to 3mcg/kg/min. Pt remains stable. O2 saturation 98% on RA, BP stable. No signs of distress. Will continue to closely monitor.
--- NOTE | 2020-09-20 04:41 | NUR ---
NURSE NOTES: Received call from lab, MRSA of the blood. Noted and will endorse to day shift.
--- NOTE | 2020-09-20 04:56 | NUR ---
NURSE NOTES: Cleaned pt. Pt had one moderate brown normal BM. Cleaned and dressed all wounds, pictures taken. Tolerated procedure well. BP stable, O2 saturation 99% on RA. Will continue to closely monitor.
[2020-09-20] MEDS: HydrALAZINE 50mg tab GT SCH ×3 (05:06→22:00)
[2020-09-20] MEDS: NovoLOG Insulin Flexpen SUBQ SCH ×4 (05:44→22:26)
--- NOTE | 2020-09-20 06:02 | NUR ---
NURSE NOTES: Pt tolerating dopamine 2mcg/kg/min well. Tolerating room air well. Pt still lethargic, responds to voice and tracks but does not follow commands. Will continue plan of care. Will continue to monitor.
[2020-09-20 06:22] LABS: PHOSPHORUS 5.5 MG/DL (2.5-4.9)
[2020-09-20 06:31] LABS: HEMATOCRIT 34.6 % (42.0-52.0); MEAN CORPUSCULAR VOLUME 94 FL (80-99); PLATELET COUNT 98 K/UL (150-450); RED BLOOD COUNT 3.67 M/UL (4.70-6.10); RED CELL DISTRIBUTION WIDTH 18.6 % (11.6-14.8); WHITE BLOOD COUNT 19.2 K/UL (4.8-10.8)
[2020-09-20 06:48] LABS: ALBUMIN 1.8 G/DL (3.4-5.0); ALBUMIN/GLOBULIN RATIO 0.4 (1.0-2.7); BILIRUBIN,TOTAL 0.6 MG/DL (0.2-1.0); CALCIUM 8.8 MG/DL (8.5-10.1); CREATININE 7.2 MG/DL (0.55-1.30); POTASSIUM 3.8 MMOL/L (3.5-5.1)
--- NOTE | 2020-09-20 08:01 | NUR ---
NURSE NOTES: Pt is asleep, no signs of distress noted. Vital signs stable. Will continue to monitor.
[2020-09-20] MEDS: Renvela 2400 mg pkt GT SCH ×3 (08:17→18:00)
[2020-09-20] MEDS: Aspirin Baby 81mg GT SCH ×2 (08:17→09:00)
[2020-09-20] MEDS: Tamsulosin 0.4mg cap ORAL SCH (08:17)
[2020-09-20] MEDS: Heparin 5000 units/ml inj SUBQ SCH ×2 (08:17→21:00)
[2020-09-20] MEDS: Lactulose 20gm/30ml UDC GT SCH ×2 (08:18→18:00)
--- NOTE | 2020-09-20 09:35 | Neurology Progress Note ---
Interim History Interim History ROS Limited/Unobtainable: No Interim History central line placed, tracks but does not follow Objective Physical Exam Last Vital Signs Date Time Temp Pulse Resp B/P (MAP) Pulse Ox O2 Delivery O2 Flow Rate FiO2 09/20/20 09:00 80 20 90/53 (65) 98 09/20/20 08:00 97.5 09/20/20 08:00 Room Air 09/19/20 20:00 4.0 09/17/20 09:00 98 Laboratory Tests Test 09/19/20 11:35 09/19/20 11:46 09/19/20 19:00 09/20/20 01:26 Lactic Acid Level 3.80 mmol/L (0.4-2.0) H 3.70 mmol/L (0.4-2.0) H 5.80 mmol/L (0.4-2.0) H POC Whole Blood Glucose 187 MG/DL (74-106) H Test 09/20/20 05:35 09/20/20 05:41 White Blood Count 19.2 K/UL (4.8-10.8) H Red Blood Count 3.67 M/UL (4.70-6.10) L Hemoglobin 11.0 G/DL (14.2-18.0) L Hematocrit 34.6 % (42.0-52.0) L Mean Corpuscular Volume 94 FL (80-99) Mean Corpuscular Hemoglobin 29.9 PG (27.0-31.0) Mean Corpuscular Hemoglobin Concent 31.7 G/DL (32.0-36.0) L Red Cell Distribution Width 18.6 % (11.6-14.8) H Platelet Count 98 K/UL (150-450) L Mean Platelet Volume 9.8 FL (6.5-10.1) Neutrophils (%) (Auto) % (45.0-75.0) Lymphocytes (%) (Auto) % (20.0-45.0) Monocytes (%) (Auto) % (1.0-10.0) Eosinophils (%) (Auto) % (0.0-3.0) Basophils (%) (Auto) % (0.0-2.0) Differential Total Cells Counted 100 Neutrophils % (Manual) 93 % (45-75) H Lymphocytes % (Manual) 2 % (20-45) L Monocytes % (Manual) 5 % (1-10) Eosinophils % (Manual) 0 % (0-3) Basophils % (Manual) 0 % (0-2) Band Neutrophils 0 % (0-8) Platelet Estimate Decreased L Platelet Morphology Normal Hypochromasia 1+ Anisocytosis 1+ Sodium Level 139 MMOL/L (136-145) Potassium Level 3.8 MMOL/L (3.5-5.1) Chloride Level 98 MMOL/L (98-107) Carbon Dioxide Level 17 MMOL/L (21-32) L Anion Gap 24 mmol/L (5-15) H Blood Urea Nitrogen 71 mg/dL (7-18) H Creatinine 7.2 MG/DL (0.55-1.30) H Estimat Glomerular Filtration Rate 7.7 mL/min (>60) Glucose Level 255 MG/DL (74-106) H Lactic Acid Level 5.80 mmol/L (0.66-2.22) H Calcium Level 8.8 MG/DL (8.5-10.1) Phosphorus Level 5.5 MG/DL (2.5-4.9) H Magnesium Level 2.3 MG/DL (1.8-2.4) Total Bilirubin 0.6 MG/DL (0.2-1.0) Aspartate Amino Transf (AST/SGOT) 43 U/L (15-37) H Alanine Aminotransferase (ALT/SGPT) 12 U/L (12-78) Alkaline Phosphatase 157 U/L (46-116) H Ammonia < 10 umol/L (11-32) L Total Protein 6.2 G/DL (6.4-8.2) L Albumin 1.8 G/DL (3.4-5.0) L Globulin 4.4 g/dL Albumin/Globulin Ratio 0.4 (1.0-2.7) L Random Vancomycin Level 17.4 ug/mL POC Whole Blood Glucose 309 MG/DL (74-106) H Head: normocophalic Neck: no rigidity EENT: benign Neurologic Exam Mental Status: alert Language: normal language Objective somnolent wakes up, confused tangential non focal neuro Impression/Recommendations Problems: (1) Pulmonary edema (2) Pulmonary edema (3) Pulmonary edema (4) Renal failure (5) HTN (hypertension) (6) Hypokalemia (7) Altered level of consciousness (8) NSTEMI (non-ST elevated myocardial infarction) (9) ESRD (end stage renal disease) on dialysis (10) History of 2019 novel coronavirus disease (COVID-19) (11) Sepsis (12) Decubitus ulcer (13) Foot ulcer Status: stable Diagnostic Impression acute encephalopathy likely metabolic due to sepsis, uti, covid, CKD missed HD icu leve map > 65 cont medical support delirium precautions cont atb no need for further neuro imaging poor prognosis Jeovanny Vail MD Sep 20, 2020 09:34
--- NOTE | 2020-09-20 09:55 | NUR ---
NURSE NOTES: Called Dr. Roblero and left message. MRSA of blood and lactic acid upwards trend of 7.3. Awaiting call back.
--- NOTE | 2020-09-20 10:24 | General Progress Note ---
Subjective Date patient seen: Sep 20, 2020 Time patient seen: 09:30 ROS Limited/Unobtainable: Yes Allergies: Coded Allergies: No Known Allergies (Unverified , 02/21/14) Subjective Somnolent and minimally verbal. ICU status due to need for vasopressors. Central line place by surgery 09/19. Dopamine low rate at this time. 2 mg/min Objective Last 24 Hour Vital Signs Date Time Temp Pulse Resp B/P (MAP) Pulse Ox O2 Delivery O2 Flow Rate FiO2 09/20/20 10:00 79 20 93/41 (58) 99 09/20/20 09:00 80 20 90/53 (65) 98 09/20/20 08:30 80 35 101/39 (59) 99 09/20/20 08:00 97.5 82 24 102/43 (62) 98 09/20/20 08:00 Room Air 09/20/20 07:45 83 09/20/20 07:30 83 26 102/45 (64) 98 09/20/20 07:00 83 26 108/59 (75) 98 09/20/20 06:30 81 24 93/45 (61) 98 09/20/20 06:00 78 24 107/45 (65) 98 09/20/20 06:00 107/45 09/20/20 05:30 100/44 09/20/20 05:30 74 22 100/44 (62) 98 09/20/20 05:15 75 23 108/46 (66) 97 09/20/20 05:15 108/46 09/20/20 05:06 104/48 09/20/20 05:00 73 21 104/46 (65) 97 09/20/20 05:00 104/46 09/20/20 04:30 75 22 111/42 (65) 96 09/20/20 04:30 111/42 09/20/20 04:15 76 22 106/45 (65) 96 09/20/20 04:00 97.5 78 22 105/44 (64) 96 09/20/20 04:00 Room Air 09/20/20 04:00 105/44 09/20/20 03:32 86 09/20/20 03:30 107/49 09/20/20 03:30 85 22 107/49 (68) 98 09/20/20 03:00 87 22 117/46 (69) 97 09/20/20 03:00 117/46 09/20/20 02:30 88 24 111/45 (67) 97 09/20/20 02:30 102/42 09/20/20 02:00 86 23 102/45 (64) 97 09/20/20 02:00 102/45 09/20/20 01:45 101/44 09/20/20 01:30 85 23 105/46 (65) 96 09/20/20 01:30 105/48 09/20/20 01:00 88 24 119/54 (75) 97 09/20/20 01:00 119/54 09/20/20 00:30 124/68 09/20/20 00:30 93 25 124/58 (80) 98 09/20/20 00:00 97.9 97 26 125/60 (81) 100 09/20/20 00:00 Room Air 09/20/20 00:00 128/80 09/19/20 23:33 102 09/19/20 23:30 120/83 09/19/20 23:00 106 24 115/63 (80) 98 09/19/20 22:30 113 21 113/62 (79) 97 09/19/20 22:00 114 22 101/62 (75) 96 09/19/20 22:00 101/62 20 22:00 101/62 09/19/20 21:30 108 22 99/55 (70) 95 20 21:15 90/48 20 21:00 90/51 20 21:00 100 22 90/51 (64) 94 20 20:30 80/42 20 20:30 97 21 80/42 (55) 94 20 20:00 Nasal Cannula 4.0 20 20:00 123/59 1920 20:00 97.4 94 18 123/59 (80) 95 20 19:33 97 20 19:30 96 19 121/59 (79) 99 20 19:00 74 16 90/47 (61) 95 20 19:00 90/47 20 18:45 90/44 09/19/20 18:30 111/46 09/19/20 18:00 68 17 86/41 (56) 97 09/19/20 17:00 69 21 106/45 (65) 99 09/19/20 16:30 67 22 104/47 (66) 99 09/19/20 16:00 68 09/19/20 16:00 97.0 68 21 101/45 (63) 98 09/19/20 16:00 Nasal Cannula 4.0 09/19/20 15:00 67 20 94/42 (59) 97 09/19/20 14:00 65 22 106/45 (65) 99 09/19/20 13:30 66 18 104/45 (64) 98 09/19/20 13:02 101/47 09/19/20 13:00 66 19 101/47 (65) 98 09/19/20 12:00 Nasal Cannula 4.0 09/19/20 12:00 66 09/19/20 12:00 97.0 65 19 100/44 (62) 100 09/19/20 11:30 65 17 104/50 (68) 100 09/19/20 11:00 65 20 100/44 (62) 100 09/19/20 10:30 66 13 100/43 (62) 100 Intake and Output 09/19/20 09/20/20 19:00 07:00 Intake Total 122.679 ml 465.222 ml Balance 122.679 ml 465.222 ml Intake IV Total 2.679 ml 105.222 ml Tube Feeding 120 ml 360 ml # Bowel Movements 3 2 Laboratory Tests 09/19/20 11:35: Lactic Acid Level 3.80H 09/19/20 11:46: POC Whole Blood Glucose 187H 09/19/20 19:00: Lactic Acid Level 3.70H 09/20/20 01:26: Lactic Acid Level 5.80H 09/20/20 05:35: White Blood Count 19.2H, Red Blood Count 3.67L, Hemoglobin 11.0L, Hematocrit 34.6L, Mean Corpuscular Volume 94, Mean Corpuscular Hemoglobin 29.9, Mean Corpuscular Hemoglobin Concent 31.7L, Red Cell Distribution Width 18.6H, Platelet Count 98L, Mean Platelet Volume 9.8, Neutrophils (%) (Auto) , Lymphocytes (%) (Auto) , Monocytes (%) (Auto) , Eosinophils (%) (Auto) , Basophils (%) (Auto) , Differential Total Cells Counted 100, Neutrophils % (Manual) 93H, Lymphocytes % (Manual) 2L, Monocytes % (Manual) 5, Eosinophils % (Manual) 0, Basophils % (Manual) 0, Band Neutrophils 0, Platelet Estimate DecreasedL, Platelet Morphology Normal, Hypochromasia 1+, Anisocytosis 1+, Sodium Level 139, Potassium Level 3.8, Chloride Level 98, Carbon Dioxide Level 17L, Anion Gap 24H, Blood Urea Nitrogen 71H, Creatinine 7.2H, Estimat Glomerular Filtration Rate 7.7, Glucose Level 255H, Lactic Acid Level 5.80H, Calcium Level 8.8, Phosphorus Level 5.5H, Magnesium Level 2.3, Total Bilirubin 0.6, Aspartate Amino Transf (AST/SGOT) 43H, Alanine Aminotransferase (ALT/SGPT) 12, Alkaline Phosphatase 157H, Ammonia < 10L, Total Protein 6.2L, Albumin 1.8L, Globulin 4.4, Albumin/Globulin Ratio 0.4L, Random Vancomycin Level 17.4 09/20/20 05:41: POC Whole Blood Glucose 309H 09/20/20 07:30: Lactic Acid Level 7.30H Height (Feet): 5 Height (Inches): 7.00 Weight (Pounds): 105 General Appearance: no apparent distress EENT: PERRL/EOMI Cardiovascular: normal rate Respiratory/Chest: decreased breath sounds Abdomen: non tender Neurologic: customer advocate II-XII grossly normal Assessment/Plan Status: stable Assessment/Plan: 65 y/o M with ESRD, Cirrhosis, Covid 19 positive admitted to the hospital due to altered mental status. # Altered mental status # Sepsis due to MRSA Staph Aureus ( sensitive to Vancomycin ) # UTI Broad sp antibiotic started and adjusted by ID pci security consultant Dr. Roblero. Continue Vancomycin IV and follow up Bcx as indicated per ID. Consider need for KODY as indicated per ID / surveillance blood culture result. TTE reviewed, no evidence of IE Monitor hemodynamics and HL IVF for now. Continue low dose dopamine for vasopressors. Due to the need for ICU beds and stable low vasopressor dose and hemodynamic stability the patient will be downgraded out of ICU today. # ESRD on HD # Hypokalemia Renal consultation with Dr. Foloudian Defer schedule for HD and replacement of electrolytes. Recommend UF and avoid removal of volume due to hypotension. # Covid 19 positive CXR without infiltrate today. Initial diagnosis in > 15 days ago. Isolation per protocol Defer to ID pci security consultant further interventions. # History of cirrhosis Resume Rifaxim, lactulose # History of diabetic foot ulcer Wound care consult with Dr. Epps # T2DM REG Monitor BG # Diet At SNF on Puree diet as tolerated. diet per ST evaluation. #DVT with heparin bid sq # Gi ppx with PPI # FULL CODE Disposition. Return to SNF ( [facility] ) when medically stable. Shiva Willams MD Sep 20, 2020 10:24
--- NOTE | 2020-09-20 11:08 | NUR ---
NURSE NOTES: BG 398, 8 units of novolog given. Will continue to monitor.
--- NOTE | 2020-09-20 11:09 | NUR ---
NURSE HAND-OFF REPORT: Latest Vital Signs: Temperature 97.5 , Pulse 80 , B/P 94 /44 , Respiratory Rate 22 , O2 SAT 98 , Mechanical Ventilator, O2 Flow Rate 4.0 . Vital Sign Comment: [Stable] EKG Rhythm: Sinus Rhythm Rhythm change?: N MD Notified?: - MD Response: Latest Branch Fall Score: 50 Fall Risk: High Risk Safety Measures: Call light Within Reach, Bed Alarm Zone 1, Side Rails Side Rails x3, Bed position Low and Locked. Fall Precautions: Yellow Socks Yellow Gown Door Sign Patient Fall Education Report given to [DESIRAE Wyatt].
--- NOTE | 2020-09-20 11:52 | Infectious Diseases Prog Note ---
Assessment/Plan Assessment/Plan A: 1. MRSA sepsis, would be concerned regarding endocarditis 2. COVID19 positive. He is on room air 3. Renal failure, on dialysis. 4. AMS PLAN: 1. Continue IV vancomycin. 2. Repeat blood culture 3. We will follow up cultures and adjust antibiotics accordingly. 4. Continue isolation. Subjective ROS Limited/Unobtainable: Yes Constitutional: Denies: fever Cardiovascular: Reports: other - hypotensive on low dose Dopamine Allergies: Coded Allergies: No Known Allergies (Unverified , 02/21/14) Objective Last 24 Hour Vital Signs Date Time Temp Pulse Resp B/P (MAP) Pulse Ox O2 Delivery O2 Flow Rate FiO2 09/20/20 10:30 94/44 09/20/20 10:30 80 22 94/44 (61) 98 09/20/20 10:00 93/41 09/20/20 10:00 79 20 93/41 (58) 99 09/20/20 09:30 78 19 94/42 (59) 98 09/20/20 09:30 93/42 09/20/20 09:00 80 20 92/53 (66) 98 09/20/20 09:00 92/53 09/20/20 08:30 80 35 101/39 (59) 99 09/20/20 08:30 101/39 09/20/20 08:00 97.5 82 24 102/43 (62) 98 09/20/20 08:00 102/43 09/20/20 08:00 Room Air 09/20/20 07:45 83 09/20/20 07:30 102/45 09/20/20 07:30 83 26 102/45 (64) 98 09/20/20 07:00 83 26 108/59 (75) 98 09/20/20 07:00 108/59 09/20/20 06:30 93/45 09/20/20 06:30 81 24 93/45 (61) 98 09/20/20 06:00 78 24 107/45 (65) 98 09/20/20 06:00 107/45 09/20/20 05:30 100/44 09/20/20 05:30 74 22 100/44 (62) 98 09/20/20 05:15 75 23 108/46 (66) 97 09/20/20 05:15 108/46 09/20/20 05:06 104/48 09/20/20 05:00 73 21 104/46 (65) 97 09/20/20 05:00 104/46 09/20/20 04:30 75 22 111/42 (65) 96 09/20/20 04:30 111/42 09/20/20 04:15 76 22 106/45 (65) 96 09/20/20 04:00 97.5 78 22 105/44 (64) 96 09/20/20 04:00 Room Air 09/20/20 04:00 105/44 09/20/20 03:32 86 09/20/20 03:30 107/49 09/20/20 03:30 85 22 107/49 (68) 98 09/20/20 03:00 87 22 117/46 (69) 97 09/20/20 03:00 117/46 09/20/20 02:30 88 24 111/45 (67) 97 09/20/20 02:30 102/42 09/20/20 02:00 86 23 102/45 (64) 97 09/20/20 02:00 102/45 09/20/20 01:45 101/44 09/20/20 01:30 85 23 105/46 (65) 96 09/20/20 01:30 105/48 09/20/20 01:00 88 24 119/54 (75) 97 09/20/20 01:00 119/54 09/20/20 00:30 124/68 09/20/20 00:30 93 25 124/58 (80) 98 09/20/20 00:00 97.9 97 26 125/60 (81) 100 09/20/20 00:00 Room Air 09/20/20 00:00 128/80 09/19/20 23:33 102 09/19/20 23:30 120/83 09/19/20 23:00 106 24 115/63 (80) 98 09/19/20 22:30 113 21 113/62 (79) 97 09/19/20 22:00 114 22 101/62 (75) 96 09/19/20 22:00 101/62 20 22:00 101/62 09/19/20 21:30 108 22 99/55 (70) 95 09/19/20 21:15 90/48 09/19/20 21:00 90/51 09/19/20 21:00 100 22 90/51 (64) 94 20 20:30 80/42 09/19/20 20:30 97 21 80/42 (55) 94 09/19/20 20:00 Nasal Cannula 4.0 09/19/20 20:00 123/59 09/19/20 20:00 97.4 94 18 123/59 (80) 95 09/19/20 19:33 97 09/19/20 19:30 96 19 121/59 (79) 99 09/19/20 19:00 74 16 90/47 (61) 95 09/19/20 19:00 90/47 09/19/20 18:45 90/44 09/19/20 18:30 111/46 09/19/20 18:00 68 17 86/41 (56) 97 09/19/20 17:00 69 21 106/45 (65) 99 09/19/20 16:30 67 22 104/47 (66) 99 09/19/20 16:00 68 09/19/20 16:00 97.0 68 21 101/45 (63) 98 09/19/20 16:00 Nasal Cannula 4.0 09/19/20 15:00 67 20 94/42 (59) 97 09/19/20 14:00 65 22 106/45 (65) 99 09/19/20 13:30 66 18 104/45 (64) 98 09/19/20 13:02 101/47 09/19/20 13:00 66 19 101/47 (65) 98 09/19/20 12:00 Nasal Cannula 4.0 09/19/20 12:00 66 09/19/20 12:00 97.0 65 19 100/44 (62) 100 Height (Feet): 5 Height (Inches): 7.00 Weight (Pounds): 105 HEENT: mucous membranes moist Respiratory/Chest: other - on room air oxygen Cardiovascular: normal rate, other - left arm AV shunt, Femoral line Abdomen: soft, non tender Extremities: no edema Skin: ulcers Neurologic/Psychiatric: unresponsiveness Microbiology Date/Time Source Procedure Growth Status 09/17/20 13:05 Rectum - Final NO CARBAPENEM-RESISTANT ENTEROBACTERI... Complete Laboratory Tests Test 09/19/20 11:46 09/19/20 19:00 09/20/20 01:26 09/20/20 05:35 POC Whole Blood Glucose 187 MG/DL (74-106) H Lactic Acid Level 3.70 mmol/L (0.4-2.0) H 5.80 mmol/L (0.4-2.0) H 5.80 mmol/L (0.66-2.22) H White Blood Count 19.2 K/UL (4.8-10.8) H Red Blood Count 3.67 M/UL (4.70-6.10) L Hemoglobin 11.0 G/DL (14.2-18.0) L Hematocrit 34.6 % (42.0-52.0) L Mean Corpuscular Volume 94 FL (80-99) Mean Corpuscular Hemoglobin 29.9 PG (27.0-31.0) Mean Corpuscular Hemoglobin Concent 31.7 G/DL (32.0-36.0) L Red Cell Distribution Width 18.6 % (11.6-14.8) H Platelet Count 98 K/UL (150-450) L Mean Platelet Volume 9.8 FL (6.5-10.1) Neutrophils (%) (Auto) % (45.0-75.0) Lymphocytes (%) (Auto) % (20.0-45.0) Monocytes (%) (Auto) % (1.0-10.0) Eosinophils (%) (Auto) % (0.0-3.0) Basophils (%) (Auto) % (0.0-2.0) Differential Total Cells Counted 100 Neutrophils % (Manual) 93 % (45-75) H Lymphocytes % (Manual) 2 % (20-45) L Monocytes % (Manual) 5 % (1-10) Eosinophils % (Manual) 0 % (0-3) Basophils % (Manual) 0 % (0-2) Band Neutrophils 0 % (0-8) Platelet Estimate Decreased L Platelet Morphology Normal Hypochromasia 1+ Anisocytosis 1+ Sodium Level 139 MMOL/L (136-145) Potassium Level 3.8 MMOL/L (3.5-5.1) Chloride Level 98 MMOL/L (98-107) Carbon Dioxide Level 17 MMOL/L (21-32) L Anion Gap 24 mmol/L (5-15) H Blood Urea Nitrogen 71 mg/dL (7-18) H Creatinine 7.2 MG/DL (0.55-1.30) H Estimat Glomerular Filtration Rate 7.7 mL/min (>60) Glucose Level 255 MG/DL (74-106) H Calcium Level 8.8 MG/DL (8.5-10.1) Phosphorus Level 5.5 MG/DL (2.5-4.9) H Magnesium Level 2.3 MG/DL (1.8-2.4) Total Bilirubin 0.6 MG/DL (0.2-1.0) Aspartate Amino Transf (AST/SGOT) 43 U/L (15-37) H Alanine Aminotransferase (ALT/SGPT) 12 U/L (12-78) Alkaline Phosphatase 157 U/L (46-116) H Ammonia < 10 umol/L (11-32) L Total Protein 6.2 G/DL (6.4-8.2) L Albumin 1.8 G/DL (3.4-5.0) L Globulin 4.4 g/dL Albumin/Globulin Ratio 0.4 (1.0-2.7) L Random Vancomycin Level 17.4 ug/mL Test 09/20/20 05:41 09/20/20 07:30 09/20/20 11:00 POC Whole Blood Glucose 309 MG/DL (74-106) H 398 MG/DL (74-106) H Lactic Acid Level 7.30 mmol/L (0.4-2.0) H Current Medications Medications (Trade) Dose Ordered Sig/Jannette Route PRN Reason Start Time Stop Time Status Last Admin Dose Admin Acetaminophen (Tylenol) 650 mg Q4H PRN GT Mild Pain (Pain Scale 1-3) 09/17/20 13:00 10/17/20 12:59 Acetaminophen/ Hydrocodone Bitart ([place] 5/325) 1 tab Q6H PRN GT Moderate Pain (Pain Scale 4-6) 09/17/20 17:00 09/24/20 12:29 Aspirin (ASA) 81 mg DAILY GT 09/18/20 09:00 11/02/20 08:59 09/19/20 08:53 Atorvastatin Calcium (Lipitor) 80 mg BEDTIME GT 09/17/20 21:00 12/16/20 20:59 09/19/20 21:24 Barium Sulfate (Varibar Honey) 250 ml NOW PRN RAD 09/17/20 20:00 09/20/20 19:48 Barium Sulfate (Varibar Rosebush) 240 ml NOW PRN RAD 09/17/20 20:00 09/20/20 19:48 Barium Sulfate (Varibar Pudding) 230 ml NOW PRN RAD 09/17/20 20:00 09/20/20 19:48 Barium Sulfate (Varibar Thin Liquid powder) 148 gm NOW PRN RAD 09/17/20 20:00 09/20/20 19:48 Calcium Acetate (Phoslo) 667 mg TID GT 09/17/20 13:00 12/16/20 12:59 09/20/20 08:17 Chlorhexidine Gluconate (Heidi-Hex 2%) 1 applic DAILY@2000 TOPIC 09/19/20 20:00 12/18/20 19:59 09/19/20 21:24 Dexamethasone (Decadron) 6 mg DAILY ORAL 09/19/20 09:00 09/28/20 09:01 09/20/20 08:17 Dextrose (Dextrose 50%) 25 ml Q30M PRN IV Hypoglycemia 09/17/20 12:30 12/16/20 12:29 Dextrose (Dextrose 50%) 50 ml Q30M PRN IV Hypoglycemia 09/17/20 12:30 12/16/20 12:29 Dopamine HCl/ Dextrose 250 ml @ 3.572 mls/ hr Q24H IV 09/19/20 11:30 09/22/20 11:26 09/19/20 18:30 Heparin Sodium (Porcine) (Heparin 5000 units/ml) 5,000 units EVERY 12 HOURS SUBQ 09/17/20 21:00 11/01/20 20:59 09/20/20 08:17 Hydralazine HCl (Apresoline) 50 mg EVERY 8 HOURS GT 09/17/20 14:00 12/16/20 13:59 Hydromorphone HCl (Dilaudid) 2 mg Q4H PRN IVP Severe Pain (Pain Scale 7-10) 09/17/20 12:30 09/24/20 12:29 Insulin Aspart (NovoLOG) BEFORE MEALS AND HS SUBQ 09/17/20 16:30 12/16/20 16:29 09/20/20 11:04 Lactulose (Cephulac) 20 gm BID GT 09/17/20 18:00 10/17/20 17:59 09/19/20 18:10 Ondansetron HCl (Zofran) 4 mg Q6H PRN IVP Nausea & Vomiting 09/17/20 12:30 10/17/20 12:29 Rifaximin (Xifaxan) 550 mg TWICE A DAY GT 09/17/20 18:00 09/24/20 17:59 09/20/20 08:17 Sevelamer Carbonate (Renvela) 2,400 mg THREE TIMES A DAY GT 09/17/20 13:00 12/16/20 12:59 09/20/20 08:17 Sodium Chloride 250 ml @ 999 mls/hr Q15MIN PRN IVPB For hypotension 09/18/20 15:45 10/18/20 15:44 Tamsulosin HCl (Flomax) 0.4 mg DAILY ORAL 09/18/20 09:00 10/18/20 08:59 09/20/20 08:17 Tramadol HCl (Ultram) 50 mg Q6H PRN GT Breakthrough Pain 09/17/20 13:00 09/24/20 12:29 Vancomycin HCl ([facility] pharmacy to dose) 1 ea DAILY PRN MISC Per rx protocol 09/17/20 12:30 10/17/20 12:29 Radu Roque MD Sep 20, 2020 11:52
--- NOTE | 2020-09-20 12:25 | Surgery Progress Note ---
Surgery Progress Note Subjective Procedure Performed Right femoral central venous catheter insertion Additional Comments ill appearing no bleeding no n/v Objective Last 24 Hour Vital Signs Date Time Temp Pulse Resp B/P (MAP) Pulse Ox O2 Delivery O2 Flow Rate FiO2 09/20/20 10:30 94/44 09/20/20 10:30 80 22 94/44 (61) 98 09/20/20 10:00 93/41 09/20/20 10:00 79 20 93/41 (58) 99 09/20/20 09:30 78 19 94/42 (59) 98 09/20/20 09:30 93/42 09/20/20 09:00 80 20 92/53 (66) 98 09/20/20 09:00 92/53 09/20/20 08:30 80 35 101/39 (59) 99 09/20/20 08:30 101/39 09/20/20 08:00 97.5 82 24 102/43 (62) 98 09/20/20 08:00 102/43 09/20/20 08:00 Room Air 09/20/20 07:45 83 09/20/20 07:30 102/45 09/20/20 07:30 83 26 102/45 (64) 98 09/20/20 07:00 83 26 108/59 (75) 98 09/20/20 07:00 108/59 09/20/20 06:30 93/45 09/20/20 06:30 81 24 93/45 (61) 98 09/20/20 06:00 78 24 107/45 (65) 98 09/20/20 06:00 107/45 09/20/20 05:30 100/44 09/20/20 05:30 74 22 100/44 (62) 98 09/20/20 05:15 75 23 108/46 (66) 97 09/20/20 05:15 108/46 09/20/20 05:06 104/48 09/20/20 05:00 73 21 104/46 (65) 97 09/20/20 05:00 104/46 09/20/20 04:30 75 22 111/42 (65) 96 09/20/20 04:30 111/42 09/20/20 04:15 76 22 106/45 (65) 96 09/20/20 04:00 97.5 78 22 105/44 (64) 96 09/20/20 04:00 Room Air 09/20/20 04:00 105/44 09/20/20 03:32 86 09/20/20 03:30 107/49 09/20/20 03:30 85 22 107/49 (68) 98 09/20/20 03:00 87 22 117/46 (69) 97 09/20/20 03:00 117/46 09/20/20 02:30 88 24 111/45 (67) 97 09/20/20 02:30 102/42 09/20/20 02:00 86 23 102/45 (64) 97 09/20/20 02:00 102/45 09/20/20 01:45 101/44 09/20/20 01:30 85 23 105/46 (65) 96 09/20/20 01:30 105/48 09/20/20 01:00 88 24 119/54 (75) 97 09/20/20 01:00 119/54 09/20/20 00:30 124/68 09/20/20 00:30 93 25 124/58 (80) 98 09/20/20 00:00 97.9 97 26 125/60 (81) 100 09/20/20 00:00 Room Air 09/20/20 00:00 128/80 09/19/20 23:33 102 09/19/20 23:30 120/83 09/19/20 23:00 106 24 115/63 (80) 98 09/19/20 22:30 113 21 113/62 (79) 97 09/19/20 22:00 114 22 101/62 (75) 96 20 22:00 101/62 20 22:00 101/62 20 21:30 108 22 99/55 (70) 95 20 21:15 90/48 20 21:00 90/51 20 21:00 100 22 90/51 (64) 94 20 20:30 80/42 20 20:30 97 21 80/42 (55) 94 19/20 20:00 Nasal Cannula 4.0 20 20:00 123/59 20 20:00 97.4 94 18 123/59 (80) 95 12/19/20 19:33 97 09/19/20 19:30 96 19 121/59 (79) 99 09/19/20 19:00 74 16 90/47 (61) 95 09/19/20 19:00 90/47 09/19/20 18:45 90/44 09/19/20 18:30 111/46 09/19/20 18:00 68 17 86/41 (56) 97 09/19/20 17:00 69 21 106/45 (65) 99 09/19/20 16:30 67 22 104/47 (66) 99 09/19/20 16:00 68 09/19/20 16:00 97.0 68 21 101/45 (63) 98 09/19/20 16:00 Nasal Cannula 4.0 09/19/20 15:00 67 20 94/42 (59) 97 09/19/20 14:00 65 22 106/45 (65) 99 09/19/20 13:30 66 18 104/45 (64) 98 09/19/20 13:02 101/47 09/19/20 13:00 66 19 101/47 (65) 98 I&O Intake and Output 09/19/20 09/20/20 19:00 07:00 Intake Total 122.679 ml 468.794 ml Balance 122.679 ml 468.794 ml Intake IV Total 2.679 ml 108.794 ml Tube Feeding 120 ml 360 ml # Bowel Movements 3 2 Dressing: saturated Cardiovascular: RSR Respiratory: decreased breath sounds Abdomen: non-tender, present bowel sounds Extremities: no edema, no tenderness, no cyanosis Laboratory Tests Test 09/19/20 19:00 09/20/20 01:26 09/20/20 05:35 09/20/20 05:41 Lactic Acid Level 3.70 mmol/L (0.4-2.0) H 5.80 mmol/L (0.4-2.0) H 5.80 mmol/L (0.66-2.22) H White Blood Count 19.2 K/UL (4.8-10.8) H Red Blood Count 3.67 M/UL (4.70-6.10) L Hemoglobin 11.0 G/DL (14.2-18.0) L Hematocrit 34.6 % (42.0-52.0) L Mean Corpuscular Volume 94 FL (80-99) Mean Corpuscular Hemoglobin 29.9 PG (27.0-31.0) Mean Corpuscular Hemoglobin Concent 31.7 G/DL (32.0-36.0) L Red Cell Distribution Width 18.6 % (11.6-14.8) H Platelet Count 98 K/UL (150-450) L Mean Platelet Volume 9.8 FL (6.5-10.1) Neutrophils (%) (Auto) % (45.0-75.0) Lymphocytes (%) (Auto) % (20.0-45.0) Monocytes (%) (Auto) % (1.0-10.0) Eosinophils (%) (Auto) % (0.0-3.0) Basophils (%) (Auto) % (0.0-2.0) Differential Total Cells Counted 100 Neutrophils % (Manual) 93 % (45-75) H Lymphocytes % (Manual) 2 % (20-45) L Monocytes % (Manual) 5 % (1-10) Eosinophils % (Manual) 0 % (0-3) Basophils % (Manual) 0 % (0-2) Band Neutrophils 0 % (0-8) Platelet Estimate Decreased L Platelet Morphology Normal Hypochromasia 1+ Anisocytosis 1+ Sodium Level 139 MMOL/L (136-145) Potassium Level 3.8 MMOL/L (3.5-5.1) Chloride Level 98 MMOL/L (98-107) Carbon Dioxide Level 17 MMOL/L (21-32) L Anion Gap 24 mmol/L (5-15) H Blood Urea Nitrogen 71 mg/dL (7-18) H Creatinine 7.2 MG/DL (0.55-1.30) H Estimat Glomerular Filtration Rate 7.7 mL/min (>60) Glucose Level 255 MG/DL (74-106) H Calcium Level 8.8 MG/DL (8.5-10.1) Phosphorus Level 5.5 MG/DL (2.5-4.9) H Magnesium Level 2.3 MG/DL (1.8-2.4) Total Bilirubin 0.6 MG/DL (0.2-1.0) Aspartate Amino Transf (AST/SGOT) 43 U/L (15-37) H Alanine Aminotransferase (ALT/SGPT) 12 U/L (12-78) Alkaline Phosphatase 157 U/L (46-116) H Ammonia < 10 umol/L (11-32) L Total Protein 6.2 G/DL (6.4-8.2) L Albumin 1.8 G/DL (3.4-5.0) L Globulin 4.4 g/dL Albumin/Globulin Ratio 0.4 (1.0-2.7) L Random Vancomycin Level 17.4 ug/mL POC Whole Blood Glucose 309 MG/DL (74-106) H Test 09/20/20 07:30 09/20/20 11:00 09/20/20 11:35 Lactic Acid Level 7.30 mmol/L (0.4-2.0) H Pending POC Whole Blood Glucose 398 MG/DL (74-106) H Plan Problems: (1) Altered level of consciousness (2) NSTEMI (non-ST elevated myocardial infarction) (3) ESRD (end stage renal disease) on dialysis (4) History of 2019 novel coronavirus disease (COVID-19) (5) Pulmonary edema (6) Pulmonary edema (7) Pulmonary edema (8) Renal failure (9) HTN (hypertension) (10) Hypokalemia (11) Decubitus ulcer (12) Foot ulcer Assessment & Plan: Patient present on admission with a 2 cm centimeter left lateral aspect fifth metatarsal ray area open wound potentially decubitus ulcer identified with 100% slough serosanguineous drainage raised edges minimal cellulitis no purulent drainage. Wound evaluated bedside cleanse with normal saline apply Thera honey gauze and Optifoam change daily and as needed saturation patient was identified to have a sacral right buttock DTI with area of purple induration no fluctuance no abscess no breakdown epidermal. Apply Optifoam dressing change every 3 days and as needed saturation patient identified to have vascular disease distal ischemia beginning to be identified. Duplex ordered. Turn every 2 hours nutritional optimization air soft mattress as necessary. We will follow with recommendations and kindly participate na wade's care pt presented on admission with multiple Pressure Injuries ,and Ulcerations R and L feet. Sacral DTPI (L)5cm x (W)4cm. Base of wound is maroon with purpuric area at sacrococcygeal prominence. Dark skin discoloration that is dry without erythema,induration or fluctuance posterior,upper R thigh. Partial thickness Ulcer with small amt Biofilm R Knee. Small amt serous exudate noted. Unstageable Ulcer with 100% necrotic base noted to distal/lateral R foot and R 5th metatarsal (L)3.4cm x (W)4.5cm. No exudate or odor noted. Periwound is fluctuant without erythema or changes in skin temp. Unstageable Pressure Injury distal/lateral L Foot (L)1.5cm x (W)1.8cm. Base of wound is 100% necrotic. No odor or exudate noted. Periwound is fluctuant without erythema. R heel is boggy with non-blanchable erythema. L heel is boggy with non-blanchable erythema. Darker skin tone without erythema,induration,fluctuance noted to R lateral Malleolus. Tx.Plan: Apply Moisture Barrier Paste to Sacrum/R Buttocks. Cover with Optifoam drsg. Change every 3 days and prn. Apply Betadine to R foot/R5th metatarsal necrosis. Cover with ABD Pad. Wrap with kerlix. Change every 3 days and prn. Apply Betadine to L foot Ulcer. Cover with ABD pad. Wrap with Kerlix Every days and prn. Apply Cavilon SKIn Barrier to both heels and each Malleoli. Cover each site with Optifoam drsgs. Change every 7 days and prn. Reposition at least every 2hours or as tolerated. Off-load heels with Pillow. APM/TARAN Mattress overlay (13) Sepsis Assessment & Plan: Patient mated with leukocytosis, lactic acidosis, abnormal labs. Septic. Fevers T-max 101.5 now resolved. On IV antibiotics. Urine noted. Micro reviewed. Wounds reviewed. No abscess identified. Local care provided. Continue IV antibiotics. Nutritional supplementation. Okay to use feeding tube. Will follow with recommendations. Thank you letting participate patient's care DAILY ESTIMATED NEEDS: Needs based on ESRD on HD, underweight 47.6kg 30-40 kcals/kg 1021-1720 total kcals 1.25-1.8 g protein/kg 60-86 g total protein Fluid per MD, on HD NUTRITION DIAGNOSIS: Increased kcal and pro needs r/t underweight status and renal dysfunction as evidenced by Low BMI (16.5), pt is 71% of ideal bosy weight, w/ ESRD on HD. CURRENT DIET:Renal puree PO DIET RECOMMENDATIONS: Renal/ puree ADDITIONAL RECOMMENDATIONS: 1) Add NEPRO TID w/ meals + 1:1 feeds as able Consider temporary feeds via GT w/ poor po Alexis Epps Sep 20, 2020 12:25
[2020-09-20] MEDS ORDERED: Vancomycin 500mg/D5W 110ml IVPB ONE ×2 (13:00)
--- NOTE | 2020-09-20 14:48 | Nephrology Progress Note ---
Assessment/Plan Problem List: (1) ESRD (end stage renal disease) on dialysis (2) Hypokalemia (3) History of 2019 novel coronavirus disease (COVID-19) (4) Sepsis (5) NSTEMI (non-ST elevated myocardial infarction) Assessment End-stage renal disease on dialysis via left AV shunt Hypokalemia Cirrhosis Acute encephalopathy toxic metabolic COVID-19 infection/sepsis History of diabetes and diabetic foot ulcer GT feeding Full code Elevated troponin I Plan September 20: Patient was dialyzed. No ultrafiltration done. On 2 mics of dopamine. Heart rate in 80s. Will attempt dialysis again tomorrow with no ultrafiltration. Discussed with RN Nan. I favor the patient to continue pressors for BP support. Continue to monitor renal parameters. September 19: Patient has not been dialyzed since admission. Last night the dialysis nurse did not dialyze citing low blood pressure. Patient is now in ICU. He is going to be started on dopamine for blood pressure support and dialysis. Discussed with Dr. Willams. Waiting line insertion to initiate dopamine. Continue to monitor renal parameters. Patient requires urgent dialysis and blood pressure support and at this time no consent could be obtained from the family members. It is my belief that we should proceed with placement of a line for initiation of pressors and follow with dialysis treatment which can be lifesaving for this patient. September 18: Dialysis ordered yesterday still pending. Discussed with RN. Labs reviewed. Low potassium replaced. Continue per consultants. Adjust blood pressure medications with proper parameters 2D echocardiogram Continue per ID Hemodialysis as needed Monitor electrolytes Subjective ROS Limited/Unobtainable: No Constitutional: Reports: malaise, weakness Objective Objective Last 24 Hour Vital Signs Date Time Temp Pulse Resp B/P (MAP) Pulse Ox O2 Delivery O2 Flow Rate FiO2 09/20/20 13:30 85 21 94/71 (79) 98 09/20/20 13:00 86 22 102/43 (62) 98 09/20/20 12:30 86 22 97/40 (59) 98 09/20/20 12:00 86 09/20/20 12:00 87 22 93/43 (60) 98 09/20/20 11:30 84 22 97/44 (61) 98 09/20/20 11:00 79 22 106/44 (64) 97 09/20/20 10:30 94/44 09/20/20 10:30 80 22 94/44 (61) 98 20 10:00 93/41 20 10:00 79 20 93/41 (58) 99 20 09:30 78 19 94/42 (59) 98 20 09:30 93/42 20 09:00 80 20 92/53 (66) 98 20 09:00 92/53 20 08:30 80 35 101/39 (59) 99 20 08:30 101/39 09/20/20 08:00 97.5 82 24 102/43 (62) 98 09/20/20 08:00 102/43 09/20/20 08:00 Room Air 09/20/20 07:45 83 09/20/20 07:30 102/45 09/20/20 07:30 83 26 102/45 (64) 98 09/20/20 07:00 83 26 108/59 (75) 98 09/20/20 07:00 108/59 09/20/20 06:30 93/45 09/20/20 06:30 81 24 93/45 (61) 98 09/20/20 06:00 78 24 107/45 (65) 98 09/20/20 06:00 107/45 09/20/20 05:30 100/44 09/20/20 05:30 74 22 100/44 (62) 98 09/20/20 05:15 75 23 108/46 (66) 97 09/20/20 05:15 108/46 09/20/20 05:06 104/48 09/20/20 05:00 73 21 104/46 (65) 97 20 05:00 104/46 09/20/20 04:30 75 22 111/42 (65) 96 20 04:30 111/42 09/20/20 04:15 76 22 106/45 (65) 96 09/20/20 04:00 97.5 78 22 105/44 (64) 96 09/20/20 04:00 Room Air 09/20/20 04:00 105/44 20 03:32 86 2020 03:30 107/49 09/20/20 03:30 85 22 107/49 (68) 98 09/20/20 03:00 87 22 117/46 (69) 97 09/20/20 03:00 117/46 09/20/20 02:30 88 24 111/45 (67) 97 09/20/20 02:30 102/42 20 02:00 86 23 102/45 (64) 97 09/20/20 02:00 102/45 09/20/20 01:45 101/44 09/20/20 01:30 85 23 105/46 (65) 96 09/20/20 01:30 105/48 09/20/20 01:00 88 24 119/54 (75) 97 09/20/20 01:00 119/54 09/20/20 00:30 124/68 09/20/20 00:30 93 25 124/58 (80) 98 09/20/20 00:00 97.9 97 26 125/60 (81) 100 09/20/20 00:00 Room Air 09/20/20 00:00 128/80 09/19/20 23:33 102 09/19/20 23:30 120/83 09/19/20 23:00 106 24 115/63 (80) 98 09/19/20 22:30 113 21 113/62 (79) 97 09/19/20 22:00 114 22 101/62 (75) 96 20 22:00 101/62 20 22:00 101/62 09/19/20 21:30 108 22 99/55 (70) 95 20 21:15 90/48 20 21:00 90/51 20 21:00 100 22 90/51 (64) 94 1920 20:30 80/42 20 20:30 97 21 80/42 (55) 94 20 20:00 Nasal Cannula 4.0 20 20:00 123/59 20 20:00 97.4 94 18 123/59 (80) 95 20 19:33 97 20 19:30 96 19 121/59 (79) 99 20 19:00 74 16 90/47 (61) 95 20 19:00 90/47 12/19/20 18:45 90/44 09/19/20 18:30 111/46 09/19/20 18:00 68 17 86/41 (56) 97 09/19/20 17:00 69 21 106/45 (65) 99 09/19/20 16:30 67 22 104/47 (66) 99 09/19/20 16:00 68 09/19/20 16:00 97.0 68 21 101/45 (63) 98 09/19/20 16:00 Nasal Cannula 4.0 09/19/20 15:00 67 20 94/42 (59) 97 Intake and Output 09/19/20 09/20/20 19:00 07:00 Intake Total 122.679 ml 468.794 ml Balance 122.679 ml 468.794 ml Intake IV Total 2.679 ml 108.794 ml Tube Feeding 120 ml 360 ml # Bowel Movements 3 2 Current Medications Medications (Trade) Dose Ordered Sig/Jannette Route PRN Reason Start Time Stop Time Status Last Admin Dose Admin Acetaminophen (Tylenol) 650 mg Q4H PRN GT Mild Pain (Pain Scale 1-3) 09/17/20 13:00 10/17/20 12:59 Acetaminophen/ Hydrocodone Bitart ([place] 5/325) 1 tab Q6H PRN GT Moderate Pain (Pain Scale 4-6) 09/17/20 17:00 09/24/20 12:29 Aspirin (ASA) 81 mg DAILY GT 09/18/20 09:00 11/02/20 08:59 09/19/20 08:53 Atorvastatin Calcium (Lipitor) 80 mg BEDTIME GT 09/17/20 21:00 12/16/20 20:59 09/19/20 21:24 Barium Sulfate (Varibar Honey) 250 ml NOW PRN MC RAD 09/17/20 20:00 09/20/20 19:48 Barium Sulfate (Varibar [place]) 240 ml NOW PRN MC RAD 09/17/20 20:00 09/20/20 19:48 Barium Sulfate (Varibar Pudding) 230 ml NOW PRN MC RAD 09/17/20 20:00 09/20/20 19:48 Barium Sulfate (Varibar Thin Liquid powder) 148 gm NOW PRN MC RAD 09/17/20 20:00 09/20/20 19:48 Calcium Acetate (Phoslo) 667 mg TID GT 09/17/20 13:00 12/16/20 12:59 09/20/20 08:17 Chlorhexidine Gluconate (Heidi-Hex 2%) 1 applic DAILY@2000 TOPIC 09/19/20 20:00 12/18/20 19:59 09/19/20 21:24 Dexamethasone (Decadron) 6 mg DAILY ORAL 09/19/20 09:00 09/28/20 09:01 09/20/20 08:17 Dextrose (Dextrose 50%) 25 ml Q30M PRN IV Hypoglycemia 09/17/20 12:30 12/16/20 12:29 Dextrose (Dextrose 50%) 50 ml Q30M PRN IV Hypoglycemia 09/17/20 12:30 12/16/20 12:29 Dopamine HCl/ Dextrose 250 ml @ 3.572 mls/ hr Q24H IV 09/19/20 11:30 09/22/20 11:26 09/19/20 18:30 Heparin Sodium (Porcine) (Heparin 5000 units/ml) 5,000 units EVERY 12 HOURS SUBQ 09/17/20 21:00 11/01/20 20:59 09/20/20 08:17 Hydralazine HCl (Apresoline) 50 mg EVERY 8 HOURS GT 09/17/20 14:00 12/16/20 13:59 Hydromorphone HCl (Dilaudid) 2 mg Q4H PRN IVP Severe Pain (Pain Scale 7-10) 09/17/20 12:30 09/24/20 12:29 Insulin Aspart (NovoLOG) BEFORE MEALS AND HS SUBQ 09/17/20 16:30 12/16/20 16:29 09/20/20 11:04 Lactulose (Cephulac) 20 gm BID GT 09/17/20 18:00 10/17/20 17:59 09/19/20 18:10 Ondansetron HCl (Zofran) 4 mg Q6H PRN IVP Nausea & Vomiting 09/17/20 12:30 10/17/20 12:29 Rifaximin (Xifaxan) 550 mg TWICE A DAY GT 09/17/20 18:00 09/24/20 17:59 09/20/20 08:17 Sevelamer Carbonate (Renvela) 2,400 mg THREE TIMES A DAY GT 09/17/20 13:00 12/16/20 12:59 09/20/20 08:17 Sodium Chloride 250 ml @ 999 mls/hr Q15MIN PRN IVPB For hypotension 09/18/20 15:45 10/18/20 15:44 Tamsulosin HCl (Flomax) 0.4 mg DAILY ORAL 09/18/20 09:00 10/18/20 08:59 09/20/20 08:17 Tramadol HCl (Ultram) 50 mg Q6H PRN GT Breakthrough Pain 09/17/20 13:00 09/24/20 12:29 Vancomycin HCl (Vanco pharmacy to dose) 1 ea DAILY PRN MISC Per rx protocol 09/17/20 12:30 10/17/20 12:29 Laboratory Tests 09/19/20 19:00: Lactic Acid Level 3.70H 09/20/20 01:26: Lactic Acid Level 5.80H 09/20/20 05:35: Lactic Acid Level 5.80H, White Blood Count 19.2H, Red Blood Count 3.67L, Hemoglobin 11.0L, Hematocrit 34.6L, Mean Corpuscular Volume 94, Mean Corpuscular Hemoglobin 29.9, Mean Corpuscular Hemoglobin Concent 31.7L, Red Cell Distribution Width 18.6H, Platelet Count 98L, Mean Platelet Volume 9.8, Neutrophils (%) (Auto) , Lymphocytes (%) (Auto) , Monocytes (%) (Auto) , Eosinophils (%) (Auto) , Basophils (%) (Auto) , Differential Total Cells Counted 100, Neutrophils % (Manual) 93H, Lymphocytes % (Manual) 2L, Monocytes % (Manual) 5, Eosinophils % (Manual) 0, Basophils % (Manual) 0, Band Neutrophils 0, Platelet Estimate DecreasedL, Platelet Morphology Normal, Hypochromasia 1+, Anisocytosis 1+, Sodium Level 139, Potassium Level 3.8, Chloride Level 98, Carbon Dioxide Level 17L, Anion Gap 24H, Blood Urea Nitrogen 71H, Creatinine 7.2H, Estimat Glomerular Filtration Rate 7.7, Glucose Level 255H, Calcium Level 8.8, Phosphorus Level 5.5H, Magnesium Level 2.3, Total Bilirubin 0.6, Aspartate Amino Transf (AST/SGOT) 43H, Alanine Aminotransferase (ALT/SGPT) 12, Alkaline Phosphatase 157H, Ammonia < 10L, Total Protein 6.2L, Albumin 1.8L, Globulin 4.4, Albumin/Globulin Ratio 0.4L, Random Vancomycin Level 17.4 09/20/20 05:41: POC Whole Blood Glucose 309H 09/20/20 07:30: Lactic Acid Level 7.30H 09/20/20 11:00: POC Whole Blood Glucose 398H 09/20/20 11:35: Lactic Acid Level 9.20H Height (Feet): 5 Height (Inches): 7.00 Weight (Pounds): 105 General Appearance: no apparent distress Cardiovascular: normal rate - Rate in the 80s Respiratory/Chest: decreased breath sounds Abdomen: distended Gerardo Truong MD Sep 20, 2020 14:48
--- NOTE | 2020-09-20 19:54 | NUR ---
1000 pt,seen by isidoro evans aware lacticacid level >9,0 WILLFOLLOW
--- NOTE | 2020-09-20 19:56 | NUR ---
[id number] PT SEEN BY HALLIE TOMLINSON NO NEW ORDERS
--- NOTE | 2020-09-20 19:57 | NUR ---
174 HD ORDERED BY JANNETH QUINTANA FOR AM HD VIP NOTIFEID WILL FOLLOWV/S CONDITION STABLE /CALM
--- NOTE | 2020-09-20 19:59 | NUR ---
NURSE HAND-OFF REPORT: Latest Vital Signs: Temperature 97.5 , Pulse 89 , B/P 123 /50 , Respiratory Rate 16 , O2 SAT 95 , Mechanical Ventilator, O2 Flow Rate 4.0 . Vital Sign Comment: [] EKG Rhythm: Sinus Rhythm Rhythm change?: N MD Notified?: - MD Response: Latest Branch Fall Score: 50 Fall Risk: High Risk Safety Measures: Call light Within Reach, Bed Alarm Zone 1, Side Rails Side Rails x3, Bed position Low and Locked. Fall Precautions: Yellow Socks Yellow Gown Door Sign Patient Fall Education Report given to [].
--- NOTE | 2020-09-20 20:00 | NUR ---
NURSE NOTES: Received patient from Charge nurse Yoselin at this time . Patient on room air sat 100%. Peripheral IV patient and intact. No redness or swelling noted at this time. Right Fem TLC running dopamine at 2 mcg/min. GT Feeding Nepro at 30 ml/hr with no residual noted, flushed and noted to be patent. Najera cath draining by gravity. Bed in lowest position, side rails upx3. No signs of distress noted. Will continue with plan of care.
[2020-09-20] MEDS: Atorvastatin 80mg tab GT SCH (22:08)
[2020-09-20] MEDS: Dyna-Hex 2% Top Sol 2oz TOPIC SCH (22:08)
--- NOTE | 2020-09-20 22:30 | NUR ---
NURSE NOTES: Daughter called for updated at this time. Informed her of father current condition at this time. all questions answered. Stated she will call for updated later.
--- NOTE | 2020-09-20 23:34 | NUR ---
NURSE NOTES: Called and spoke with MD Willams at this time. Informed him patients Blood sugar has been trending up at this time. Last blood sugar was 416 for which 10 units subcutaneous insulin was given. Order is to place him on Q 6HR sliding scale at this time. Addendum: 09/20/20 at 2337 by BRET JONES RN orders read back and confirmed by MD Willams
--- NOTE | 2020-09-20 23:56 | NUR ---
HAND-OFF: Report given to Alyssia MERRILL.
--- NOTE | 2020-09-20 23:57 | NUR ---
NURSE NOTES: Received patient from Charge Sabine MERRILL . Patient on room air sat 100% without SOB . Iv sites right Wrist 22G, right FA 18 G, right femoral TLC and LEft FA AV shunt intact, clean, and patent. . No redness or swelling noted at this time. Right Fem TLC running dopamine at 4 mcg/min. GT Feeding Nepro at 30 ml/hr with no residual noted, intact, clean, and patent. Najera cath draining by gravity. Bed in lowest position, alarmed, and locked, side rails upx3. No signs of distress noted. Will continue with plan of care. call light within reach.
[2020-09-21] VITALS (31 sets, daily range): BP systolic 71–268; BP diastolic 25–97
--- NOTE | 2020-09-21 01:00 | NUR ---
NURSE NOTES: increased dopamine to 8mcg/min due to pt's low BP. will continue to monitor pt. call light within reach.
--- NOTE | 2020-09-21 02:02 | NUR ---
NURSE NOTES: cleaned pt, green BM noted (moderate). provided new gown, and new clean sheets. oral care given. call light within reach. will continue to monitor pt.
[2020-09-21] MEDS: DOPamine 400mg/250ml 250 ML IV SCH (03:28)
--- NOTE | 2020-09-21 04:00 | NUR ---
NURSE NOTES: oral care given, repositioned pt Q 2hrs. O2sat at 100% in RA. call light within reach.
[2020-09-21] MEDS: HydrALAZINE 50mg tab GT SCH (05:02)
[2020-09-21 05:47] LABS: HEMATOCRIT 23.9 % (42.0-52.0); HEMOGLOBIN 7.7 G/DL (14.2-18.0); MEAN CORPUSCULAR VOLUME 91 FL (80-99); PLATELET COUNT 103 K/UL (150-450); RED BLOOD COUNT 2.61 M/UL (4.70-6.10); RED CELL DISTRIBUTION WIDTH 18.8 % (11.6-14.8); WHITE BLOOD COUNT 21.7 K/UL (4.8-10.8)
[2020-09-21] MEDS: NovoLOG Insulin Flexpen SUBQ SCH ×2 (05:55)
--- NOTE | 2020-09-21 06:00 | NUR ---
NURSE NOTES: pt is in RA no SOB noted, O2sat is at 100%. no BM noted at this time.
[2020-09-21 06:02] LABS: CALCIUM 9.1 MG/DL (8.5-10.1); CREATININE 8.2 MG/DL (0.55-1.30); PHOSPHORUS 4.1 MG/DL (2.5-4.9); POTASSIUM 4.7 MMOL/L (3.5-5.1)
--- NOTE | 2020-09-21 06:46 | NUR ---
NURSE NOTES: notified Dr. Willams regarding Hgb 7.7 hct 23.9 lactic acid 10.5. and pt is 8mcg/min (dopamine). per Dr. Willams 1 unit of PRBC for now. noted and will continue to monitor pt.
[2020-09-21 06:56] LABS: ALANINE AMINOTRANSFERASE 15 U/L (12-78); ALBUMIN 1.7 G/DL (3.4-5.0); ALKALINE PHOSPHATASE 175 U/L (46-116); ASPARTATE AMINO TRANSFERASE 40 U/L (15-37); BILIRUBIN,DIRECT 0.1 MG/DL (0.0-0.3); BILIRUBIN,TOTAL 0.5 MG/DL (0.2-1.0)
--- NOTE | 2020-09-21 07:25 | NUR ---
NURSE HAND-OFF REPORT: Latest Vital Signs: Temperature 98.1 , Pulse 108 , B/P 96 /51 , Respiratory Rate 29 , O2 SAT 100 , Mechanical Ventilator, O2 Flow Rate 4.0 . Vital Sign Comment: [stable but pt tends to be low BP] EKG Rhythm: Sinus Tachycardia Rhythm change?: N MD Notified?: -y. Dr. Imer JORDAN Response:no new order Latest Branch Fall Score: 50 Fall Risk: High Risk Safety Measures: Call light Within Reach, Bed Alarm Zone 1, Side Rails Side Rails x3, Bed position Low and Locked. Fall Precautions: Yellow Socks Yellow Gown Door Sign Patient Fall Education Report given to [Luisa MERRILL].
--- NOTE | 2020-09-21 07:30 | NUR ---
NURSE NOTES: Received report from DESIRAE Cade. The patient is resting on the bed but obtunded and lethargic at this time. The patient is obtunded and eyes are not tracking. SR to ST w/ HR of 80-100s at this time. Weak pulse noted. The patient is on room air but poor quality SpO2 noted due to poor circulation. The patient has GT that is intact and patent and running Nephro @ 30mL/hr but turned off for possible GIB because of significant drop in hemoglobin. Blood transfusion ordered by Dr. Willams and consent obtained from family member and awaiting for type and cross to be done. Per DESIRAE Cade, bloody stool noted this rn private duty. The patient is anuric. Skin issue noted and dressing intact. The patient has L FA AC shunt for HD access. The patient has R wrist 22G PIV, R FA 18G PIV, and R femoral TLC those are intact and patent and running Dopamine 8mcg/kg/min. Per DESIRAE Cade, critical lab reported to Dr. Willams including Hgb drop from 11.0 to 7.7, D-dimer 10.52, Lactic acid 10.50. The patient's bed in the lowest position, call light in reach, and fall and aspiration precaution reinforced. IV site intact and patent. Will follow up the lab and order. Will closely monitor the patient. Will continue plan of care.
--- NOTE | 2020-09-21 07:45 | NUR ---
NURSE NOTES: Placed the patient on non-rebreather 15L as the patient's SpO2 reading quality is poor due to poor circulation. Hard to read SpO2 at this time but shallow breathing noted.
--- NOTE | 2020-09-21 07:50 | NUR ---
NURSE NOTES: Notified Dr. Willams again regarding critical lab including Hgb 7.7, D-dimer 10.52, BUN 114, Cr 8.2, Lactic acid 10.50. Also notified Dr. Willams that the patient maxed out on Dopamine drip now. Also notified that primary nurse turned off tube feeding for possible GIB. Will follow up with Dr. Willams regarding further order. Will continue plan of care.
--- NOTE | 2020-09-21 08:20 | NUR ---
NURSE NOTES: Paged Dr. Willams again regarding the patient's critical condition. Dr. Willams ordered followings: Levophed to titrate, Phenylephrine to titrate, Protonix 80mg IVP once and Protonix 8mg/hr continuous, and stat ABG to be done. Will carry out the order as soon as possible. Will continue plan of care. Addendum: 09/21/20 at 1521 by Timothy Arteaga RN Called RT to do stat ABG to be done. Will follow up the result. Addendum: 09/21/20 at 2034 by Timothy Arteaga RN Called pharmacy to verify drips as soon as possible. Per pharmacy, they will bring phenylephrine and protonix drip after mixing. Will continue plan of care.
[2020-09-21] MEDS ORDERED: Phenylephrine 50 MG in D5W 245 ML IV SCH (08:30)
[2020-09-21] MEDS ORDERED: Norepinephrine 4mg/NS Premix 250 ML IV SCH (08:30)
[2020-09-21] MEDS ORDERED: Pantoprazole Inj IVP SCH (08:30)
--- NOTE | 2020-09-21 08:30 | NUR ---
NURSE NOTES: Levophed started @ max dose due to low blood pressure. Awaiting for phenylephrine and protonix drip to be sent up from the pharmacy. Will stay at the bedside for continuous monitoring. Will continue plan of care.
--- NOTE | 2020-09-21 08:45 | NUR ---
NURSE NOTES: Primary nurse asked to call marsha blue for PEA. Unable to maintain airway due to GIB coming out from stomach to oral cavity and altered mental status. Unreadable blood pressure on the monitor. The patient was maxed out on Dopamine and Levophed. Dr. Osullivan at the bedside to run the code. See code sheet for detail. Addendum: 09/21/20 at 1532 by Timothy Arteaga RN CODE BLUE: See Code sheet which remains on paper.
[2020-09-21] MEDS: Renvela 2400 mg pkt GT SCH (09:00)
[2020-09-21] MEDS: Tamsulosin 0.4mg cap ORAL SCH (09:00)
[2020-09-21] MEDS: Lactulose 20gm/30ml UDC GT SCH (09:00)
[2020-09-21] MEDS ORDERED: Pantoprazole 80 MG in NS 250 ML IV SCH (09:00)
[2020-09-21] MEDS: Heparin 5000 units/ml inj SUBQ SCH (09:00)
[2020-09-21] MEDS: Aspirin Baby 81mg GT SCH (09:00)
[2020-09-21] MEDS ORDERED: Sodium Bicarbonate 50ml Carp ONE (09:05)
[2020-09-21] MEDS ORDERED: Calcium Chloride 10% 10ml carpuject IVP ONE (09:05)
[2020-09-21] MEDS ORDERED: Magnesium Sulfate 2ml Inj ONE (09:05)
--- NOTE | 2020-09-21 09:05 | NUR ---
NURSE NOTES: Dr. Mahajan pronounced the patient's at 904. No spontaneous respiration, Asystole on the manager cardiac cath, No pulse, Dilated and fixed pupil at this time. Notified Dr. Willams @ 904. Called spouse and next of kin (Ms. Shannon Gaytan) regarding the patient's . Emotional support provided to family memer. One legacy called @ 929 by NADIA Wyatt. Will provide post mortem care.
--- NOTE | 2020-09-21 09:10 | NUR ---
NURSE NOTES: Post mortem care done.
[2020-09-21] MEDS ORDERED: NS 275ml ONE (09:38)
[2020-09-21] MEDS ORDERED: Tubing IV Secondary IV ONE (09:38)
--- NOTE | 2020-09-21 10:11 | Emergency Room Report ---
History of Present Illness General Chief Complaint: Altered Level of Consciousness Source: Medical Record, PMD Present Illness HPI Admitting DDx 1. MRSA sepsis, would be concerned regarding endocarditis 2. COVID19 positive. He is on room air 3. Renal failure, on dialysis. I was asked to respond to a CODE BLUE event for this patient. Patient was admitted for COVID-19 respiratory failure, MRSA sepsis/rule out bacteremia, renal failure. According to the nurse, the patient started to desaturate on nonrebreather and went pulseless. Patient had a PEA arrest. Upon my arrival, patient was being bagged, and 2 rounds of CPR had already occurred. Nurse states that patient had an acute drop in hemoglobin this morning. When I arrived, there was copious coffee ground emesis saturating his bed, pillow, and clothing. Patient hypoxic at 40%. I did perform endotracheal intubation, which was difficult due to upper GI ble ed. Video laryngoscopy was unsuccessful due to UGIB, so patient was intubated under direct laryngoscopy. Patient was coded as per CPR ACLS protocol, initially in PEA, then received 6 rounds of CPR/epinephrine. Patient went into wide-complex V. fib rhythm and was defibrillated using 200 J of electricity. The ultimate rhythm ended in asystole. Patient . Time of : 905. Primary team was informed of patient's expiration. Dr Willams aware. CPR procedure note Indication: CODE BLUE Informed consent: Patient unable to consent and no DNR status on record Procedure: Cardiac compressions were performed by staff in order to sustain blood flow under my direct supervision. The patient was ventilated and oxygenated. The patient received appropriate ACLS measures and these were repeated as necessary throughout the resuscitation. Findings: Patient at 0906 a.m. Procedure Note: Endotracheal Intubation by me: Pre assessment performed. See preceding note for details. Pre-oxygenation performed with 100% oxygen Emergency Endotracheal Intubation: Consent unable to be obtained due to emergent nature of procedure and airway assessment this patient was prepared for endotracheal intubation with preoxygenation and airway positioning. The patient underwent rapid sequence induction and endotracheal intubation utilizing direct visualization laryngoscopy. The endotracheal tube was placed between the vocal cords and placement was confirmed with fogging of the tube, end title CO2, and equal bilateral chest rise as well as absence of borborygmi over the epigastrium. Chest x-ray was obtained for final confirmation. There were no complications. Blade: MAC 4 ET Tube: 7.5 cm Depth: 24 cm at the lip Complications: None. Intubation confirmed by colorimetric CO2, equal breath sounds, quiet over the stomach. Intubated with full C spine precautions, with the assistance of auger supervisor. 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 COVID-19 Screening: Positive COVID-19 COVID-19 Testing Source: nasal Nursing Documentation-PM Past Medical History: No History, Except For Hx Cardiac Problems: Yes Hx Hypertension: Yes Hx Diabetes: Yes Hx Cancer: No Hx Gastrointestinal Problems: No Hx Dialysis: Yes - Monday, Monday schedule Hx Neurological Problems: No Physical Exam Vital Signs Date Time Temp Pulse Resp B/P (MAP) Pulse Ox O2 Delivery O2 Flow Rate FiO2 09/17/20 08:38 99.0 91 19 120/46 (70) 98 Room Air 09/17/20 09:00 98 09/19/20 08:00 4.0 Sp02 EP Interpretation: abnormal Medical Decision Making Diagnostic Impression: Primary Impression: Sepsis Qualified Codes: A41.9 - Sepsis, unspecified organism; R65.20 - Severe sepsis without septic shock; G93.40 - Encephalopathy, unspecified Additional Impressions: History of 2019 novel coronavirus disease (COVID-19) Altered level of consciousness NSTEMI (non-ST elevated myocardial infarction) ESRD (end stage renal disease) on dialysis Hypokalemia Cardiopulmonary arrest Coffee ground emesis Anemia GI bleed MRSA bacteremia Last Vital Signs Date Time Temp Pulse Resp B/P (MAP) Pulse Ox O2 Delivery O2 Flow Rate FiO2 09/21/20 07:00 96/51 09/21/20 07:00 108 29 09/21/20 04:00 98.1 100 09/21/20 04:00 Room Air 09/19/20 20:00 4.0 09/17/20 09:00 98 Disposition: Admit Decision Time: 09:06 Condition: Referrals: [facility],REFERR[facility] (PCP) Minal Orta D.O. Sep 21, 2020 10:11
--- NOTE | 2020-09-21 10:30 | NUR ---
NURSE NOTES: Family members (spouse, daughter, and son) at the bedside for the patient. Emotional support provided.
--- NOTE | 2020-09-21 11:00 | NUR ---
NURSE NOTES: The patient sent down to the [facility] with primary RN. Confirmed that toe tag and bag tag w/ the patient's information. No belongings at this time.
--- NOTE | 2020-09-21 11:35 | Discharge Summary ---
Discharge Summary Hospital Course Date of Admission Sep 17, 2020 at 10:25 Date of Discharge 09/21/2020 Admitting Diagnosis sepsis/ALOC covid + HPI Stephanie Moran is a 65 year old male who was admitted on Sep 17, 2020 at 10:25 for Sepsis/Altered Level Of Conscious/Covid+ Hospital Course 65 y/o M with ESRD, Cirrhosis, Covid 19 positive admitted to the hospital due to altered mental status. # Altered mental status # Sepsis due to MRSA Staph Aureus ( sensitive to Vancomycin ) Broad sp antibiotic started and adjusted by ID senior billing consultant Dr. Roblero. He was Continued Vancomycin IV and follow up Bcx as indicated per ID. TTE reviewed, no evidence of IE Continue low dose dopamine for vasopressors. # ESRD on HD # Hypokalemia Renal consultation with Dr. Kline and HD sessions were coordinated during the hospital stay. Last HD 09/20 was done. # Covid 19 positive CXR without infiltrate today. Initial diagnosis in > 15 days ago. Isolation per protocol Defer to ID senior billing consultant further interventions. He was given Ivermectin by ID senior billing consultant Dr. Gomez as he had contraindicatios to Redmisivir and dexamethasone due to ESRD. # History of cirrhosis On Rifaxim, lactulose # History of diabetic foot ulcer Wound care consult with Dr. Epps and wound care On 09/21/20 the patient AM labs were noted to have a drop in his Hb level and coffee ground emesis concerning for GI bleed. Protonix bolus and gtt was ordered. PRBC and type and cross. A CODE BLUE was called and ED attending attended. PER NOTE: According to the nurse, the patient started to desaturate on nonrebreather and went pulseless. Patient had a PEA arrest. Upon my arrival, patient was being bagged, and 2 rounds of CPR had already occurred. Nurse states that patient had an acute drop in hemoglobin this morning. When I arrived, there was copious coffee ground emesis saturating his bed, pillow, and clothing. Patient hypoxic at 40%. I did perform endotracheal intubation, which was difficult due to upper GI bleed. Video laryngoscopy was unsuccessful due to UGIB, so patient was intubated under direct laryngoscopy. Patient was coded as per CPR ACLS protocol, initially in PEA, then received 6 rounds of CPR/epinephrine. Patient went into wide-complex V. fib rhythm and was defibrillated using 200 J of electricity. The ultimate rhythm ended in asystole. Patient . Time of : 905. Primary team was informed of patient's expiration. Dr Willams aware. CPR procedure note Indication: CODE BLUE Informed consent: Patient unable to consent and no DNR status on record Procedure: Cardiac compressions were performed by staff in order to sustain blood flow under my direct supervision. The patient was ventilated and oxygenated. The patient received appropriate ACLS measures and these were repeated as necessary throughout the resuscitation. Findings: Patient at 0906 a.m. Procedure Note: Endotracheal Intubation by me: Pre assessment performed. See preceding note for details. Pre-oxygenation performed with 100% oxygen Emergency Endotracheal Intubation: Consent unable to be obtained due to emergent nature of procedure and airway assessment this patient was prepared for endotracheal intubation with preoxygenation and airway positioning. The patient underwent rapid sequence induction and endotracheal intubation utilizing direct visualization laryngoscopy. The endotracheal tube was placed between the vocal cords and placement was confirmed with fogging of the tube, end title CO2, and equal bilateral chest rise as well as absence of borborygmi over the epigastrium. Chest x-ray was obtained for final confirmation. There were no complications. Blade: MAC 4 ET Tube: 7.5 cm Depth: 24 cm at the lip Complications: None. Intubation confirmed by colorimetric CO2, equal breath sounds, quiet over the stomach. Intubated with full C spine precautions, with the assistance of body trimmer. Discharge Condition Upon Discharge: other - Discharge Vital Signs Last Vital Signs Date Time Temp Pulse Resp B/P (MAP) Pulse Ox O2 Delivery O2 Flow Rate FiO2 09/21/20 10:58 96/51 09/21/20 07:00 108 29 09/21/20 04:00 98.1 100 09/21/20 04:00 Room Air 09/19/20 20:00 4.0 09/17/20 09:00 98 Discharge Disposition Patient was discharged to [facility] Discharge Diagnoses: (1) Cirrhosis of liver (2) GI bleed (3) MRSA bacteremia (4) ESRD (end stage renal disease) on dialysis (5) History of 2019 novel coronavirus disease (COVID-19) (6) Renal failure Shiva Willams MD Sep 21, 2020 11:35
--- NOTE | 2020-09-21 17:16 | NUR ---
INSURANCE DC SUMMARY/CLINICALS ( 09/19-09/21) FAXED TO CLINICALS FAXED TO [facility] T: [phone] [id number] F: [phone]
== END 2020-09-21 09:06 | disposition expired | DRG 720 ==
LOC: EDBD 08:35 → EMR 09:00 → 2E 10:25 → EDBEDREQ 11:45 → ICU 09-19 02:11
PROC: 5A1D70Z Performance of Urinary Filtration, Intermittent, Less than 6 Hours Per Day (ICD-10-PCS; 2020-09-17)
PROC: 06HM33Z Insertion of Infusion Device into Right Femoral Vein, Percutaneous Approach (ICD-10-PCS; 2020-09-19)
PROC: 0BH17EZ Insertion of Endotracheal Airway into Trachea, Via Natural or Artificial Opening (ICD-10-PCS; principal; 2020-09-21)
PROC: 5A12012 Performance of Cardiac Output, Single, Manual (ICD-10-PCS; 2020-09-21)
DX: A41.02 Sepsis due to Methicillin resistant Staphylococcus aureus (principal); N18.6 End stage renal disease; Z99.2 Dependence on renal dialysis; I21.4 Non-ST elevation (NSTEMI) myocardial infarction; E87.6 Hypokalemia; U07.1 COVID-19; G93.41 Metabolic encephalopathy; N39.0 Urinary tract infection, site not specified; K74.60 Unspecified cirrhosis of liver; E11.22 Type 2 diabetes mellitus with diabetic chronic kidney disease; Z79.4 Long term (current) use of insulin; K92.2 Gastrointestinal hemorrhage, unspecified; R65.20 Severe sepsis without septic shock; E11.621 Type 2 diabetes mellitus with foot ulcer; I95.9 Hypotension, unspecified; L89.156 Pressure-induced deep tissue damage of sacral region; L89.890 Pressure ulcer of other site, unstageable; L89.892 Pressure ulcer of other site, stage 2; I34.0 Nonrheumatic mitral (valve) insufficiency
CPT/HCPCS: 36415; 71045; 80048; 80053; 80076; 80202; 81003; 82140; 82550; 82728; 82962; 83036; 83605; 83615; 83690; 83735; 83880; 84100; 84443; 84484; 84550; 85007; 85025; 85379; 85610; 85730; 86140; 87040; 87081; 87086; 87181; 93005; 93306; 96365; 96367; 99285; J0171; J1815; J8499; U0002